=== PATIENT | male | born 1945 | race Caucasian/White ===

== ENCOUNTER 2018-03-30 14:23 | Emergency (ER) | payer OTHER, SELFPAY ==
[2018-03-30 14:28] VITALS: BP 138/79; PULSE 92; RESP 20; TEMP 37; O2SAT 100; BMI 21.2
--- NOTE | 2018-03-30 16:10 | ED.ABDPAIN ---
HPI - Abdominal Pain General Chief Complaint: Urogenital-Male Stated Complaint: states hernia Time Seen by Provider: 03/30/18 16:01 History of Present Illness HPI narrative: This is a 72-year-old gentleman who comes to the emergency department with complaint of groin pain and swelling. Patient states that he has had what he believes is a hernia for many years on both sides of the lower groin. Patient states that the right side would go in and out, it sounds like he could self reduced. Um over the last several days he has not been able to it has become hard and painful. Patient has not had any nausea or vomiting but he has had watery stools with no solid stools for the last 3 days. He denies any urinary issues. He has not had any fevers. He has been having pain in his lower abdomen on the right side as well since the pain in the area of the right groin occurred. He denies any testicular pain. MD complaint: other ( Concern for hernia) Onset (ago): day(s) Pain Consistency: constant Radiation: RLQ Migration to: RLQ and other ( from groin) Relieving factors: nothing Exacerbating factors: nothing Related Data Home Medications Medication Instructions Recorded Confirmed No Known Home Medications 03/30/18 03/30/18 Allergies Allergy/AdvReac Type Severity Reaction Status Date / Time INGREDIENT: NKDA - NO KNOWN Allergy Unknown Uncoded 03/30/18 14:32 DRUG ALLERGIES Review of Systems Review of Systems All systems reviewed & are unremarkable except as noted in HPI and below Constitutional Denies chills, Denies fever(s), Denies lethargy and Denies weakness Cardiovascular Denies chest pain, Denies irregular heart rhythm, Denies lightheadedness, Denies palpitations, Denies dyspnea, Denies dyspnea on exertion and Denies orthopnea Respiratory Denies cough, Denies dyspnea, Denies dyspnea on exertion and Denies wheezing Gastrointestinal Gastrointestinal: Reports abdominal pain ( right groin with some lump.), Denies melena, Denies hematochezia, Reports change in bowel habits ( loose watery stools), Reports constipation, Reports diarrhea, Reports loose stools and Denies nausea Genitourinary Reports as per HPI, Denies hematuria, Denies flank pain, Denies urinary incontinence and Denies urinary urgency Neurologic Denies weakness Endocrine Denies palpitations Allergic/Immunologic Denies wheezing [facility] Social History Smoking Status: Current every day smoker Exam Initial Vital Signs Initial Vital Signs: Vital Signs Temperature 98.6 F 03/30/18 14:28 Pulse Rate 92 H 03/30/18 14:28 Respiratory Rate 20 03/30/18 14:28 Blood Pressure 138/79 03/30/18 14:28 Pulse Oximetry 100 03/30/18 14:28 Const General: cooperative and well developed Nutritional Appearance: well nourished Orientation: alert, awake, oriented x3 and not confused Resp Effort & Inspection: normal respiratory effort, able to speak in complete sentences, no respiratory distress and no use of accessory muscles Auscultation: clear to auscultation bilaterally, no rales, no rhonchi and no wheezes Cardio Rate: regular rate Rhythm: regular rhythm Heart Sounds: no click, no gallops, no murmurs and no rubs Pulses: normal peripheral pulses GI Inspection: normal to inspection and no visible herniation Palpation: soft, no hepatosplenomegaly, No firm, guarding, No hepatomegaly, No hernia and tender Auscultation: normal bowel sounds General: No CVA tenderness Course Orders Ordered: ED Orders 03/30/18 15:55 Complete Blood Count AUTO DIFF Stat Comprehensive Metabolic Panel Stat Lipase Stat Partial Thromboplastin Time Stat Prothrombin Time INR Stat 03/30/18 16:10 CT abdomen pelvis w con Stat Reevaluation(s) Reevaluation #1: Patient pain continues to be resolved. Vital Signs - 8 hr 03/30/18 14:28 03/30/18 16:17 03/30/18 18:10 Temperature 98.6 F Pulse Rate 92 H 98 H 95 H Respiratory Rate 20 14 18 Blood Pressure 138/79 135/72 Blood Pressure [Left Arm] 128/67 Pulse Oximetry 100 95 97 MDM - Abdominal Pain Medical Records Patient's symptoms resolved and although CT did not show any clear signs of inguinal hernia I suspect that some had reduced be was given referral to general surgery. He also had a mass on his CT of the bladder and we discussed patient needs urgent follow-up with Urology for further evaluation. Him and his will both call Saturday morning for an appointment. We did discuss that if there are any issues where they ran into very years to care to return to the ER for assistance. Lab Data Result diagrams: 03/30/18 15:55 03/30/18 15:55 Lab Results 03/30/18 03/30/18 03/30/18 Range/Units 15:55 15:55 15:55 WBC 6.1 (4.5-11.0) X10^3/uL RBC 3.79 L (4.0-5.2) X10^6/uL Hgb 13.7 (12.0-16.0) g/dL Hct 39.9 (36-46) % MCV 105.3 H (80-100) fL MCH 36.1 H (26-34) PG MCHC 34.3 (30-36) % RDW 13.5 (11.6-14.8) % Plt Count 246 (150-400) X10^3/uL Neut % (Auto) 62.6 (50-75) % Lymph % (Auto) 14.0 L (25-40) % [place] % (Auto) 22.2 H (3-14) % Eos % (Auto) 0.9 L (2-4) % Baso % (Auto) 0.3 (0-2) % Neut # (Auto) 3800 (5295-0607) /uL RBC Morphology Not Reportable Macrocytosis 1+ H PT 11.0 (10.1-12.7) SECONDS INR 1.0 (0.9-1.3) APTT 24 L (26.4-36.2) SECONDS Sodium 131 L (137-145) mmol/L Potassium 3.9 (3.4-5.1) mmol/L Chloride 95 L (98-107) mmol/L Carbon Dioxide 29 (22-32) mmol/L BUN 17 (7-17) mg/dL Creatinine 0.60 (0.52-1.04) mg/dL Estimated GFR > 60.0 (>60) mL/min BUN/Creatinine Ratio 28.3 H (6-22) Glucose 105 (80-110) mg/dL Calcium 9.1 (8.4-10.2) mg/dL Total Bilirubin 0.5 (0.2-1.3) mg/dL AST 41 H (14-36) IU/L ALT 41 (9-52) IU/L Alkaline Phosphatase 48 (38-126) U/L Total Protein 6.9 (6.3-8.2) g/dL Albumin 3.9 (3.5-5.0) g/dL Globulin 3.0 (1.7-4.1) g/dL Albumin/Globulin Ratio 1.3 (1.0-2.8) Lipase 109 (23-300) U/L Imaging Data CT scan - abdomen: Radiologist's impression: [address] [address] [address] Scan Report Signed Patient: Jann Noriega LMR#: [id number] : 3Acct:[id number] Age/Sex: 72 / FDate of Service: 03/30/18 Loc: ED Accession Number: [id number] Procedure: CT abdomen pelvis w con Ordering Provider: Tanvi Caicedo D.O. PROCEDURE: CT ABDOMEN PELVIS W CON INDICATIONS: b/l groin swelling, right groin swelling, painful lump TECHNIQUE: After the administration of intravenous contrast, 5 mm thick sections acquired from the diaphragm to the symphysis. 5 mm coronal and sagittal reformats were acquired. For radiation dose reduction, the following was used: automated exposure control, adjustment of mA and/or kV according to patient size. COMPARISON: None. FINDINGS: Image quality: Limited by patient motion artifact. ABDOMEN: Lung bases: Lung bases are clear. Heart size is normal. Atherosclerotic calcifications noted in the visualized coronary vasculature. Solid organs: Liver is normal in size and enhancement. Diffuse fatty infiltration of the liver. Gallbladder is contracted, but grossly normal. Biliary system is non dilated. Pancreas enhances normally. Spleen is normal in size and enhancement. No adrenal nodules. Kidneys demonstrate normal size and enhancement, without hydronephrosis. Peritoneum and bowel: Mildly distended, fluid-filled loop of small bowel noted in the lower pelvis adjacent to the rectum and sigmoid colon. There is circumferential wall thickening involving the distended fluid-filled loop of small bowel in the pelvis. Small amount of free fluid noted in the lower pelvis. No free air. The appendix is normal. Nodes and vessels: No retroperitoneal or mesenteric adenopathy by size criteria. Aorta and inferior vena cava are normal in size. Scattered atherosclerotic calcifications are noted in the abdominal and pelvic vasculature. Miscellaneous: No ventral hernias. PELVIS: Genitourinary: There is a 3.6 x 4.2 x 3.1 cm soft tissue density, heterogeneously enhancing mass in the urinary bladder. Prostate is enlarged. Miscellaneous: No inguinal hernias or adenopathy. Bones: No suspicious bony lesions. Chronic appearing T12 compression deformity. No acute vertebral body compression fractures. Spine degenerative disease and facet arthropathy noted. IMPRESSION: 1. Mild distention and circumferential wall thickening involving a distal loop of small bowel in the lower pelvis compatible with nonspecific enteritis. 2. 3.6 x 4.2 x 3.1 cm urinary bladder mass highly suspicious for neoplastic process including urothelial carcinoma. Recommend urology consultation. 3. Small amount of free fluid in the lower pelvis. 4. Mild hepatic steatosis. 5. Atherosclerosis including the visualized coronary vasculature. 6. Image quality limited by patient motion artifact. Dictated by: Rachel Murray MD, PhD on 03/30/2018 at 17:06 Approved by: Rachel Murray MD, PhD on 03/30/2018 at 17:14 Discharge Plan Departure Patient Disposition: Home Clinical Impression: Inguinal hernia recurrent bilateral, Bladder mass Discharge Date/Time: 03/30/18 18:10 Interventions: ED Discharge Assessment Last Done: 03/30/18 18:10 Instructions: Groin Hernia -- Adult Activity Restrictions/Additional Instructions: Call for follow-up appointment on Saturday with general surgery regarding your recurrent hernia. If you notice recurrence lay flat and try to relax the muscles of your abdomen, if the area does not reduce Um in size or becomes soft and nontender, return to the emergency department. Your imaging also shows a urinary bladder mass that is suspicious and needs follow-up with a urologist. Included is the urologist professional services consultant for [facility]. Call first thing Saturday for an appointment. Prescriptions: No Action No Known Home Medications RF: 0 Referrals: Avila Staley MD [Non-Staff] - Trinidad Granado MD [Physician] - ( Call for a follow-up appointment in the next week.)
[2018-03-30 16:17] VITALS: BP 128/67; PULSE 98; RESP 14; O2SAT 95
[2018-03-30 16:19] LABS: Alanine Aminotransferase 41 IU/L (9-52); Albumin 3.9 g/dL (3.5-5.0); Albumin Globulin Ratio 1.3 (1.0-2.8); Alkaline Phosphatase 48 U/L (38-126); Aspartate Aminotransferase 41 IU/L (14-36); BUN Creatinine Ratio 28.3 (6-22); Bilirubin Total 0.5 mg/dL (0.2-1.3); Blood Urea Nitrogen 17 mg/dL (7-17); Calcium 9.1 mg/dL (8.4-10.2); Carbon Dioxide 29 mmol/L (22-32); Chloride 95 mmol/L (98-107); Estimated Glomerular Filt Rate > 60.0 mL/min (>60); Glucose 105 mg/dL (80-110); Lipase 109 U/L (23-300); Potassium 3.9 mmol/L (3.4-5.1); Sodium 131 mmol/L (137-145); Total Protein 6.9 g/dL (6.3-8.2)
--- NOTE | 2018-03-30 16:19 | ED_ITS ---
HPI - Abdominal Pain General Chief Complaint: Urogenital-Male Stated Complaint: states hernia Time Seen by Provider: 03/30/18 16:01 History of Present Illness HPI narrative: This is a 72-year-old gentleman who comes to the emergency department with complaint of groin pain and swelling. Patient states that he has had what he believes is a hernia for many years on both sides of the lower groin. Patient states that the right side would go in and out, it sounds like he could self reduced. Um over the last several days he has not been able to it has become hard and painful. Patient has not had any nausea or vomiting but he has had watery stools with no solid stools for the last 3 days. He denies any urinary issues. He has not had any fevers. He has been having pain in his lower abdomen on the right side as well since the pain in the area of the right groin occurred. He denies any testicular pain. MD complaint: other ( Concern for hernia) Onset (ago): day(s) Pain Consistency: constant Radiation: RLQ Migration to: RLQ and other ( from groin) Relieving factors: nothing Exacerbating factors: nothing Related Data Home Medications Medication Instructions Recorded Confirmed No Known Home Medications 03/30/18 03/30/18 Allergies Allergy/AdvReac Type Severity Reaction Status Date / Time INGREDIENT: NKDA - NO KNOWN Allergy Unknown Uncoded 03/30/18 14:32 DRUG ALLERGIES Review of Systems Review of Systems All systems reviewed & are unremarkable except as noted in HPI and below Constitutional Denies chills, Denies fever(s), Denies lethargy and Denies weakness Cardiovascular Denies chest pain, Denies irregular heart rhythm, Denies lightheadedness, Denies palpitations, Denies dyspnea, Denies dyspnea on exertion and Denies orthopnea Respiratory Denies cough, Denies dyspnea, Denies dyspnea on exertion and Denies wheezing Gastrointestinal Gastrointestinal: Reports abdominal pain ( right groin with some lump.), Denies melena, Denies hematochezia, Reports change in bowel habits ( loose watery stools), Reports constipation, Reports diarrhea, Reports loose stools and Denies nausea Genitourinary Reports as per HPI, Denies hematuria, Denies flank pain, Denies urinary incontinence and Denies urinary urgency Neurologic Denies weakness Endocrine Denies palpitations Allergic/Immunologic Denies wheezing [facility] Social History Smoking Status: Current every day smoker Exam Initial Vital Signs Initial Vital Signs: Vital Signs Temperature 98.6 F 03/30/18 14:28 Pulse Rate 92 H 03/30/18 14:28 Respiratory Rate 20 03/30/18 14:28 Blood Pressure 138/79 03/30/18 14:28 Pulse Oximetry 100 03/30/18 14:28 Const General: cooperative and well developed Nutritional Appearance: well nourished Orientation: alert, awake, oriented x3 and not confused Resp Effort & Inspection: normal respiratory effort, able to speak in complete sentences, no respiratory distress and no use of accessory muscles Auscultation: clear to auscultation bilaterally, no rales, no rhonchi and no wheezes Cardio Rate: regular rate Rhythm: regular rhythm Heart Sounds: no click, no gallops, no murmurs and no rubs Pulses: normal peripheral pulses GI Inspection: normal to inspection and no visible herniation Palpation: soft, no hepatosplenomegaly, No firm, guarding, No hepatomegaly, No hernia and tender Auscultation: normal bowel sounds General: No CVA tenderness Course Orders Ordered: ED Orders 03/30/18 15:55 Complete Blood Count AUTO DIFF Stat Comprehensive Metabolic Panel Stat Lipase Stat Partial Thromboplastin Time Stat Prothrombin Time INR Stat 03/30/18 16:10 CT abdomen pelvis w con Stat Reevaluation(s) Reevaluation #1: Patient pain continues to be resolved. Vital Signs - 8 hr 03/30/18 14:28 03/30/18 16:17 03/30/18 18:10 Temperature 98.6 F Pulse Rate 92 H 98 H 95 H Respiratory Rate 20 14 18 Blood Pressure 138/79 135/72 Blood Pressure [Left Arm] 128/67 Pulse Oximetry 100 95 97 MDM - Abdominal Pain Medical Records Patient's symptoms resolved and although CT did not show any clear signs of inguinal hernia I suspect that some had reduced be was given referral to general surgery. He also had a mass on his CT of the bladder and we discussed patient needs urgent follow-up with Urology for further evaluation. Him and his will both call Saturday morning for an appointment. We did discuss that if there are any issues where they ran into very years to care to return to the ER for assistance. Lab Data Result diagrams: 03/30/18 15:55 03/30/18 15:55 Lab Results 03/30/18 03/30/18 03/30/18 Range/Units 15:55 15:55 15:55 WBC 6.1 (4.5-11.0) X10^3/uL RBC 3.79 L (4.0-5.2) X10^6/uL Hgb 13.7 (12.0-16.0) g/dL Hct 39.9 (36-46) % MCV 105.3 H (80-100) fL MCH 36.1 H (26-34) PG MCHC 34.3 (30-36) % RDW 13.5 (11.6-14.8) % Plt Count 246 (150-400) X10^3/uL Neut % (Auto) 62.6 (50-75) % Lymph % (Auto) 14.0 L (25-40) % [place] % (Auto) 22.2 H (3-14) % Eos % (Auto) 0.9 L (2-4) % Baso % (Auto) 0.3 (0-2) % Neut # (Auto) 3800 (1751-9942) /uL RBC Morphology Not Reportable Macrocytosis 1+ H PT 11.0 (10.1-12.7) SECONDS INR 1.0 (0.9-1.3) APTT 24 L (26.4-36.2) SECONDS Sodium 131 L (137-145) mmol/L Potassium 3.9 (3.4-5.1) mmol/L Chloride 95 L (98-107) mmol/L Carbon Dioxide 29 (22-32) mmol/L BUN 17 (7-17) mg/dL Creatinine 0.60 (0.52-1.04) mg/dL Estimated GFR > 60.0 (>60) mL/min BUN/Creatinine Ratio 28.3 H (6-22) Glucose 105 (80-110) mg/dL Calcium 9.1 (8.4-10.2) mg/dL Total Bilirubin 0.5 (0.2-1.3) mg/dL AST 41 H (14-36) IU/L ALT 41 (9-52) IU/L Alkaline Phosphatase 48 (38-126) U/L Total Protein 6.9 (6.3-8.2) g/dL Albumin 3.9 (3.5-5.0) g/dL Globulin 3.0 (1.7-4.1) g/dL Albumin/Globulin Ratio 1.3 (1.0-2.8) Lipase 109 (23-300) U/L Imaging Data CT scan - abdomen: Radiologist's impression: [address] [address] [address] Scan Report Signed Patient: Jann Noriega LMR#: [id number] : 3Acct:[id number] Age/Sex: 72 / FDate of Service: 03/30/18 Loc: ED Accession Number: [id number] Procedure: CT abdomen pelvis w con Ordering Provider: Tanvi Caicedo D.O. PROCEDURE: CT ABDOMEN PELVIS W CON INDICATIONS: b/l groin swelling, right groin swelling, painful lump TECHNIQUE: After the administration of intravenous contrast, 5 mm thick sections acquired from the diaphragm to the symphysis. 5 mm coronal and sagittal reformats were acquired. For radiation dose reduction, the following was used: automated exposure control, adjustment of mA and/or kV according to patient size. COMPARISON: None. FINDINGS: Image quality: Limited by patient motion artifact. ABDOMEN: Lung bases: Lung bases are clear. Heart size is normal. Atherosclerotic calcifications noted in the visualized coronary vasculature. Solid organs: Liver is normal in size and enhancement. Diffuse fatty infiltration of the liver. Gallbladder is contracted, but grossly normal. Biliary system is non dilated. Pancreas enhances normally. Spleen is normal in size and enhancement. No adrenal nodules. Kidneys demonstrate normal size and enhancement, without hydronephrosis. Peritoneum and bowel: Mildly distended, fluid-filled loop of small bowel noted in the lower pelvis adjacent to the rectum and sigmoid colon. There is circumferential wall thickening involving the distended fluid-filled loop of small bowel in the pelvis. Small amount of free fluid noted in the lower pelvis. No free air. The appendix is normal. Nodes and vessels: No retroperitoneal or mesenteric adenopathy by size criteria. Aorta and inferior vena cava are normal in size. Scattered atherosclerotic calcifications are noted in the abdominal and pelvic vasculature. Miscellaneous: No ventral hernias. PELVIS: Genitourinary: There is a 3.6 x 4.2 x 3.1 cm soft tissue density, heterogeneously enhancing mass in the urinary bladder. Prostate is enlarged. Miscellaneous: No inguinal hernias or adenopathy. Bones: No suspicious bony lesions. Chronic appearing T12 compression deformity. No acute vertebral body compression fractures. Spine degenerative disease and facet arthropathy noted. IMPRESSION: 1. Mild distention and circumferential wall thickening involving a distal loop of small bowel in the lower pelvis compatible with nonspecific enteritis. 2. 3.6 x 4.2 x 3.1 cm urinary bladder mass highly suspicious for neoplastic process including urothelial carcinoma. Recommend urology consultation. 3. Small amount of free fluid in the lower pelvis. 4. Mild hepatic steatosis. 5. Atherosclerosis including the visualized coronary vasculature. 6. Image quality limited by patient motion artifact. Dictated by: Rachel Murray MD, PhD on 03/30/2018 at 17:06 Approved by: Rachel Murray MD, PhD on 03/30/2018 at 17:14 Discharge Plan Departure Patient Disposition: Home Clinical Impression: Inguinal hernia recurrent bilateral, Bladder mass Discharge Date/Time: 03/30/18 18:10 Interventions: ED Discharge Assessment Last Done: 03/30/18 18:10 Instructions: Groin Hernia -- Adult Activity Restrictions/Additional Instructions: Call for follow-up appointment on Saturday with general surgery regarding your recurrent hernia. If you notice recurrence lay flat and try to relax the muscles of your abdomen, if the area does not reduce Um in size or becomes soft and nontender, return to the emergency department. Your imaging also shows a urinary bladder mass that is suspicious and needs follow-up with a urologist. Included is the urologist marketing communications manager for [facility]. Call first thing Saturday for an appointment. Prescriptions: No Action No Known Home Medications RF: 0 Referrals: Avila Staley MD [Non-Staff] - Trinidad Granado MD [Physician] - ( Call for a follow-up appointment in the next week.)
[2018-03-30 16:26] LABS: HEMOLYSIS 51 (0-50)
[2018-03-30 16:36] LABS: PTT Partial Thromboplastin Tim 24 SECONDS (26.4-36.2)
[2018-03-30 16:58] LABS: Basophils Percent Auto 0.3 % (0-2); Eosinophils Percent Auto 0.9 % (2-4); Hematocrit 39.9 % (36-46); Hemoglobin 13.7 g/dL (12.0-16.0); Mean Corpuscular HGB Conc 34.3 % (30-36); Mean Corpuscular Hemoglobin 36.1 PG (26-34); Mean Corpuscular Volume 105.3 fL (80-100); Monocytes Percent Auto 22.2 % (3-14); Neutrophils Absolute Auto 3800 /uL (3000-5900); Neutrophils Percent Auto 62.6 % (50-75); Platelet Count 246 X10^3/uL (150-400); Red Blood Cell Count 3.79 X10^6/uL (4.0-5.2); Red Cell Distribution Width 13.5 % (11.6-14.8); White Blood Cell Count 6.1 X10^3/uL (4.5-11.0)
[2018-03-30 17:04] LABS: Add Manual Diff / Slide Review SLIDE REVIEW
[2018-03-30 17:24] LABS: Macrocytosis 1+
[2018-03-30 18:10] VITALS: BP 135/72; PULSE 95; RESP 18; O2SAT 97
== END 2018-03-30 18:10 | disposition home or self-care (01) ==
PROVIDERS: Emergency Provider Emergency Medicine
DX: K40.21 Bilateral inguinal hernia, without obstruction or gangrene, recurrent (principal); N32.89 Other specified disorders of bladder
CPT/HCPCS: 36591; 74177; 80053; 83690; 85025; 85610; 85730; 99282; 99285; Q9967

== ENCOUNTER 2018-04-01 21:02 | Emergency (ER) | payer OTHER, SELFPAY ==
[2018-04-01 21:12] VITALS: BP 144/77; PULSE 85; RESP 18; TEMP 36.9; O2SAT 95; BMI 22.8
--- NOTE | 2018-04-07 16:09 | ED.ABDPAIN ---
HPI - Abdominal Pain General Chief Complaint: Abdominal Pain Stated Complaint: STATES HERNIA PROBLEMS History of Present Illness HPI narrative: Patient left without being seen prior to my examination. Related Data Home Medications Medication Instructions Recorded Confirmed ascorbic acid (vitamin C) 500 mg 1,000 mg PO cap 04/07/18 04/07/18 capsule aspirin 81 mg chewable tablet 81 mg PO DAILY 04/07/18 04/07/18 calcium citrate PO 04/07/18 04/07/18 cholecalciferol (vitamin D3) 1,000 1,000 unit PO DAILY 04/07/18 04/07/18 unit capsule mecobalamin (vitamin B12) 1,000 1,000 mcg SL DAILY 04/07/18 04/07/18 mcg disintegrating tablet,sublingual omega-3 fatty acids PO 04/07/18 04/07/18 Allergies Allergy/AdvReac Type Severity Reaction Status Date / Time INGREDIENT: NKDA - NO KNOWN Allergy Unknown Uncoded 04/07/18 13:30 DRUG ALLERGIES PFSH Medical History Atherosclerosis (Acute) Bilateral inguinal hernia (Acute) Hepatic steatosis (Acute) Surgical History H/O vasectomy (Resolved) Social History marital status: household members: spouse Smoking Status: Current every day smoker alcohol intake: current substance use type: does not use Exam Initial Vital Signs Initial Vital Signs: Vital Signs Temperature 98.4 F 04/01/18 21:12 Pulse Rate 85 04/01/18 21:12 Respiratory Rate 18 04/01/18 21:12 Blood Pressure 144/77 H 04/01/18 21:12 Pulse Oximetry 95 04/01/18 21:12 Discharge Plan Departure Patient Disposition: Left Without Being Seen Discharge Date/Time: 04/01/18 23:14 Interventions: ED Discharge Assessment Last Done: 04/01/18 23:10
== END 2018-04-01 23:14 | disposition left against medical advice (07) ==
PROVIDERS: Emergency Provider Emergency Medicine
DX: R10.9 Unspecified abdominal pain (principal)
CPT/HCPCS: 99281; 99282

== ENCOUNTER 2018-04-10 10:09 | Day surgery (SDC) | payer OTHER, SELFPAY ==
[2018-04-07 13:28] VITALS: BMI 21.4
--- NOTE | 2018-04-10 08:25 | SUR.OPER ---
Supine on padded OR bed, head on pillow, arms secured on padded arm boards at <90 degrees abduction, legs uncrossed, safety belt at thigh, tape over blanket over lower legs.
[2018-04-10 14:23] VITALS: BP 159/76; PULSE 85; RESP 16; TEMP 36.4; O2SAT 99; BMI 21.4
[2018-04-10] MEDS: LACTATED RINGERS 1,000 ML 42 ML IV (15:00)
--- NOTE | 2018-04-10 15:25 | PM.PREOP ---
Pre-operative Note Interval Note Pre-op Check: Yes History & Physical Reviewed by Physician and Yes Exam Performed Changes: No
[2018-04-10] MEDS: CEFAZOLIN 2 GM/100 ML FROZ.PIGGY IV (16:16)
[2018-04-10] MEDS: BUPIVACAINE 0.5% (PF) VIAL 30 ML INJ (16:27)
[2018-04-10 17:30] VITALS: BP 118/69; PULSE 73; RESP 15; TEMP 36.3; O2SAT 97
[2018-04-10 17:35] VITALS: BP 123/73; PULSE 73; RESP 13; TEMP 36.3; O2SAT 96
--- NOTE | 2018-04-10 17:37 | PM.OP.1 ---
Operative Date/Time/Diagnoses Date of procedure: 04/10/18 Time of procedure: 17:37 Pre-op diagnosis: Bilateral inguinal hernias reducible Post-op diagnosis: same (Same direct) Procedure & Clinicians Procedure: Bilateral inguinal hernia repair with plug and patch technique Same procedure as scheduled: Yes Indications: Symptomatic bilateral inguinal hernias Surgeon: Fredis Curiel Click Yes if Unassisted: Yes Anesthesia Type: General Operative Notes Findings: The patient was placed supine on the operating room table and underwent general LMA anesthesia. He was prepped and draped in the usual fashion. A transverse incision was made overlying the internal ring and carried down to the level of the external oblique. The external oblique was opened parallel with its fibers through the external ring. The cord structures were elevated. The cremaster was opened proximally and search made for an indirect sac. None was found . The floor was examined and was found to [have very discrete ring coming through the floor just superior and lateral to the pubic tubercle. I opened end it really had no contents at the time of operation O times and suture obliterating the hole and placing a plug under it.]. A patch was placed across the floor and tacked at the pubic tubercle, the posterior lamella of the anterior rectus sheath, the ilioinguinal ligament, and superior lateral to the cord. The opening was modified as necessary to prevent tight constriction of the cord. Sutures of 0 Tycron were used to secure the mesh. The external oblique was closed with a running 3 0 Polysorb. The subcu was closed with interrupted 3 0 Polysorb. The skin was closed with a running 4 0 Polysorb subcuticular stitch. Attention was then turned to the opposite side where a mirror incision was created. An identical operation was performed. Identical findings were present. An identical operation was performed. Closure was in identical fashion. At completion Steri-Strips and Dressings were applied, the patient was awakened, and the patient was taken to the recovery area in good condition. Closure Type: primary Specimen(s): none sent Implants & Drains: Mesh Estimated Blood Loss (mL): 10 Complications: none Condition: stable Disposition: PACU Plan for aftercare: Follow-up in the office
[2018-04-10 17:40] VITALS: BP 123/73; PULSE 73; RESP 14; TEMP 36.6; O2SAT 95
[2018-04-10 17:45] VITALS: BP 126/72; PULSE 71; RESP 14; TEMP 36.6; O2SAT 95
[2018-04-10 18:20] VITALS: BP 155/85; PULSE 74; RESP 20; TEMP 36.6; O2SAT 95
== END 2018-04-10 16:00 | disposition home or self-care (01) ==
LOC: OR 08-26 10:10
PROVIDERS: PCP Physician Assistant Medical; Visit Provider Specialist
PROC: (CPT 49505; principal; 2018-04-10 14:30)
DX: K40.20 Bilateral inguinal hernia, without obstruction or gangrene, not specified as recurrent (principal); F17.210 Nicotine dependence, cigarettes, uncomplicated
CPT/HCPCS: 49505; C1781; J0690; J1100; J2405; J2704; J3010

== ENCOUNTER → 2018-04-10 13:18 | Day surgery (SDC) | payer OTHER, SELFPAY | PROVIDERS: PCP Physician Assistant Medical; Visit Provider Specialist ==

== ENCOUNTER → 2018-05-30 10:45 | Outpatient (CLI) | payer OTHER, SELFPAY ==
--- NOTE | 2018-05-30 | DI.US.S_ITS ---
PROCEDURE: US RENAL COMPLETE INDICATIONS: BLADDER TUMOR TECHNIQUE: Real-time scanning was performed of the kidneys and bladder, with image documentation. COMPARISON: None. FINDINGS: Kidneys: Kidneys are normal in size. Right kidney measures 10.9 cm long; left kidney measures 11.8 cm long. Right renal cortical thickness is 1.9 cm; left renal cortical thickness is 1.8 cm. Renal cortical echotexture is normal. No hydronephrosis or nephrolithiasis. No suspicious solid mass lesions. Bladder: Pre-void bladder volume is 53 mL. Post-void residual is 10 mL. Pre-void images demonstrate no intraluminal masses or stones. On pre-void images, neither ureteral jets are noted with color Doppler interrogation. (Of note, ureteral jets may not be detectable in up to 25% of cases due to insufficient differences in specific gravity between ureteral and bladder urine). Miscellaneous: No free pelvic fluid. IMPRESSION: No hydronephrosis or nephrolithiasis found. The bladder volume is not abnormally enlarged and the post void residual is small. A discrete bladder mass is not identified but bladder distention would provide a more effective evaluation through the bladder lumen for detecting a small bladder mass by ultrasound. Dictated by: Nain Argueta M.D. on 05/30/2018 at 15:43 Approved by: Nain Argueta M.D. on 05/30/2018 at 15:44
== END ==
PROVIDERS: PCP Physician Assistant Medical; Visit Provider Urology
DX: D49.4 Neoplasm of unspecified behavior of bladder (principal)
CPT/HCPCS: 76770

== ENCOUNTER 2018-08-09 09:42 | Emergency (ER) | payer OTHER, SELFPAY ==
[2018-08-09] VITALS (9 sets, daily range): BP systolic 116–150; BP diastolic 63–78; PULSE 87–104; RESP 13–24; TEMP 37.4; O2SAT 94–98
--- NOTE | 2018-08-09 10:13 | PC.NURSE ---
coughing for one week, shortness of breath,generalized weakness, poor appetite. hx of bladder cancer remove last april, hernia repair last march, denies traveling outside [place] denies vomiting or diarrhea.
--- NOTE | 2018-08-09 10:27 | ED.URI ---
HPI - URI/Sore Throat General Chief Complaint: Upper Respiratory Symptoms Stated Complaint: CONGESTION Time Seen by Provider: 08/09/18 09:58 Source: patient Mode of arrival: ambulatory Limitations: no limitations History of Present Illness HPI Narrative: The patient 73-year-old male who presents with cough and shortness of breath. It has been ongoing for about a week but progressively has gotten worse over last few days. He has a productive cough of feel short of breath both at rest and with exertion. He denies any chest pain or heart palpitations. He has had low-grade fever. He quit smoking 11 weeks ago he has smoked for most of his life at least a pack a day. No known history of COPD. MD Complaint: fever and cough Related Data Home Medications Medication Instructions Recorded Confirmed ascorbic acid (vitamin C) 500 mg 1,000 mg PO cap 04/07/18 04/23/18 capsule aspirin 81 mg chewable tablet 81 mg PO DAILY 04/07/18 04/23/18 calcium citrate PO 04/07/18 04/23/18 cholecalciferol (vitamin D3) 1,000 1,000 unit PO DAILY 04/07/18 04/23/18 unit capsule mecobalamin (vitamin B12) 1,000 1,000 mcg SL DAILY 04/07/18 04/23/18 mcg disintegrating tablet,sublingual omega-3 fatty acids PO 04/07/18 04/23/18 Previous Rx's Medication Instructions Recorded albuterol sulfate 1 puff INHALATION Q4-6H PRN #8.5 08/09/18 gram doxycycline hyclate 100 mg PO BID #20 cap 08/09/18 prednisone 50 mg PO DAILY #5 tab 08/09/18 Allergies Allergy/AdvReac Type Severity Reaction Status Date / Time No Known Drug Allergies Allergy Verified 08/09/18 10:32 Review of Systems Review of Systems ROS Unobtainable: All systems reviewed & are unremarkable except as noted in HPI and below Constitutional Reports body ache(s) and Reports fever(s) Cardiovascular Denies chest pain, Denies irregular heart rhythm, Denies lightheadedness, Denies palpitations and Denies orthopnea Respiratory Reports as per HPI Gastrointestinal Gastrointestinal: Denies abdominal pain, Denies change in bowel habits, Denies diarrhea, Denies nausea and Denies vomiting Musculoskeletal Denies back pain, Denies muscle weakness, Denies numbness and Denies tingling Integumentary/Breasts Denies pruritus, Denies erythema, Denies rash and Denies wounds Neurologic Denies numbness and Denies tingling Endocrine Denies palpitations PFSH Medical History Atherosclerosis (Acute) Bilateral inguinal hernia (Acute) Hepatic steatosis (Acute) Surgical History H/O vasectomy (Resolved) Social History marital status: household members: spouse Smoking Status: Current every day smoker alcohol intake: current substance use type: does not use Exam Initial Vital Signs Initial Vital Signs: Vital Signs Temperature 99.3 F 08/09/18 09:47 Pulse Rate 100 H 08/09/18 09:47 Respiratory Rate 20 08/09/18 09:47 Blood Pressure 146/77 H 08/09/18 09:47 Pulse Oximetry 96 08/09/18 09:47 GENERAL: Appears weak alert oriented x3 HEENT: Head atraumatic,EOMI, pupils reactive, CARDIOVASCULAR: Regular rate and rhythm without murmurs, rubs or gallops. RESPIRATORY: Decreased breath sounds bilaterally no respiratory distress slight crackles ABDOMEN: Soft, nontender. Normoactive bowel sounds all 4 quadrants. No guarding or rebound. EXTREMITIES: Normal range of motion, no clubbing or edema. Neurovascularly intact NEUROLOGICAL: Alert and oriented x4.Normal gait and speech. Cranial nerves II through XII grossly intact. SKIN: Warm, dry, no laceration, no petechiae, no rashes or lesions. Scores CURB-65 Confusion: No BUN >19mg/dL (>7mmol/L): No Respiratory rate greater or equal to 30: No SBP <90mmHg or DBP less or equal to 60mmHg: No Age 65 or Older: Yes CURB-65 Total: 1 Score 0-1 Outpatient care, Score 2 Inpt vs. Obs, Score 3 or over Inpt admit with ICU for score of 4-5 Course Orders Ordered: ED Orders 08/09/18 10:20 B Type Natriuretic Peptide Stat Complete Blood Count AUTO DIFF Stat Comprehensive Metabolic Panel Stat Lactate (Lactic Acid) Stat Magnesium Stat Procalcitonin Stat Troponin & CK Cardiac Panel Stat 08/09/18 10:27 EKG-12 Lead Stat 08/09/18 10:29 Consult to Respiratory Therapy Evaluate & Treat 08/09/18 10:31 XR chest 1V Stat 08/09/18 10:45 Blood Culture Stat Discontinued Medications Albuterol/Ipratropium (Duoneb) 3 ml INH NOW ONE Stop: 08/09/18 10:28 Last Admin: 08/09/18 10:35 Dose: 3 ml Sodium Chloride (Normal Saline 0.9%) 1,000 mls @ 150 mls/hr IV CONT CAL Last Admin: 08/09/18 10:45 Dose: 150 mls/hr Vital Signs - 8 hr 08/09/18 09:47 08/09/18 10:00 08/09/18 10:35 Temperature 99.3 F Pulse Rate 100 H 104 H 96 H Respiratory Rate 20 13 16 Blood Pressure 146/77 H Blood Pressure [Left Arm] 150/78 H Pulse Oximetry 96 94 96 08/09/18 11:00 08/09/18 11:30 08/09/18 12:00 Temperature Pulse Rate 96 H 98 H 88 Respiratory Rate 13 13 24 Blood Pressure Blood Pressure [Left Arm] 117/63 126/64 116/74 Pulse Oximetry 96 98 98 08/09/18 12:10 08/09/18 12:30 08/09/18 13:08 Temperature Pulse Rate 98 H 87 93 H Respiratory Rate 18 13 20 Blood Pressure 130/72 Blood Pressure [Left Arm] 130/78 Pulse Oximetry 96 95 97 MDM - URI/Sore Throat Lab Data Attestation: I reviewed the patient's lab results. Result diagrams: 08/09/18 10:20 08/09/18 10:20 Lab Results 08/09/18 08/09/18 08/09/18 Range/Units 10:20 10:20 10:20 WBC 12.8 H (4.5-11.0) X10^3/uL RBC 3.50 L (4.5-5.9) X10^6/uL Hgb 12.1 L (13.5-17.5) g/dL Hct 36.2 L (41-53) % MCV 103.2 H (80-100) fL MCH 34.6 H (26-34) PG MCHC 33.5 (30-36) % RDW 12.9 (11.6-14.8) % Plt Count 279 (150-400) X10^3/uL Neut % (Auto) 71.0 (50-75) % Lymph % (Auto) 9.7 L (25-40) % [place] % (Auto) 17.0 H (3-14) % Eos % (Auto) 1.6 L (2-4) % Baso % (Auto) 0.7 (0-2) % Neut # (Auto) 9100 H (9819-6327) /uL Lymph # (Auto) 1200 (9841-9743) /uL [place] # (Auto) 2200 H (0-900) /uL Eos # (Auto) 200 (0-450) /uL Baso # (Auto) 100 (0-100) /uL Sodium 131 L (137-145) mmol/L Potassium 4.4 (3.4-5.1) mmol/L Chloride 95 L (98-107) mmol/L Carbon Dioxide 25 (22-32) mmol/L BUN 9 (9-20) mg/dL Creatinine 0.50 L (0.66-1.25) mg/dL Estimated GFR > 60.0 (>60) mL/min BUN/Creatinine Ratio 18.0 (6-22) Glucose 107 (80-110) mg/dL Lactate (0.7-2.1) mmol/L Calcium 8.7 (8.4-10.2) mg/dL Magnesium 1.6 (1.6-2.3) mg/dL Total Bilirubin 1.3 (0.2-1.3) mg/dL AST 21 (17-59) IU/L ALT 20 L (21-72) IU/L Alkaline Phosphatase 70 (38-126) U/L Total Creatine Kinase 66 (55-170) U/L CK-MB (CK-2) TNP CK-MB (CK-2) Rel Index TNP Troponin I < 0.012 (0.01-0.034) ng/mL B-Natriuretic Peptide < 100 (<100) Total Protein 7.4 (6.3-8.2) g/dL Albumin 4.1 (3.5-5.0) g/dL Globulin 3.3 (1.7-4.1) g/dL Albumin/Globulin Ratio 1.2 (1.0-2.8) Procalcitonin < 0.05 (<0.5) ng/mL 01/12/19 01/12/19 Range/Units 10:20 10:20 WBC (4.5-11.0) X10^3/uL RBC (4.5-5.9) X10^6/uL Hgb (13.5-17.5) g/dL Hct (41-53) % MCV (80-100) fL MCH (26-34) PG MCHC (30-36) % RDW (11.6-14.8) % Plt Count (150-400) X10^3/uL Neut % (Auto) (50-75) % Lymph % (Auto) (25-40) % [place] % (Auto) (3-14) % Eos % (Auto) (2-4) % Baso % (Auto) (0-2) % Neut # (Auto) (6007-8992) /uL Lymph # (Auto) (1436-8497) /uL [place] # (Auto) (0-900) /uL Eos # (Auto) (0-450) /uL Baso # (Auto) (0-100) /uL Sodium Cancelled (137-145) mmol/L Potassium Cancelled (3.4-5.1) mmol/L Chloride Cancelled (98-107) mmol/L Carbon Dioxide Cancelled (22-32) mmol/L BUN Cancelled (9-20) mg/dL Creatinine Cancelled (0.66-1.25) mg/dL Estimated GFR Cancelled (>60) mL/min BUN/Creatinine Ratio Cancelled (6-22) Glucose Cancelled (80-110) mg/dL Lactate 0.9 (0.7-2.1) mmol/L Calcium Cancelled (8.4-10.2) mg/dL Magnesium (1.6-2.3) mg/dL Total Bilirubin Cancelled (0.2-1.3) mg/dL AST Cancelled (17-59) IU/L ALT Cancelled (21-72) IU/L Alkaline Phosphatase Cancelled (38-126) U/L Total Creatine Kinase (55-170) U/L CK-MB (CK-2) CK-MB (CK-2) Rel Index Troponin I (0.01-0.034) ng/mL B-Natriuretic Peptide (<100) Total Protein Cancelled (6.3-8.2) g/dL Albumin Cancelled (3.5-5.0) g/dL Globulin Cancelled (1.7-4.1) g/dL Albumin/Globulin Ratio Cancelled (1.0-2.8) Procalcitonin (<0.5) ng/mL ECG Data Attestation: I personally reviewed and interpreted this ECG as follows: Prior ECG tracings: not available for review Interpretation: Normal sinus rhythm rate [address] changes no T-wave inversions TN interval 121 QTC 388 MDM Narrative Medical decision making narrative: Patient does not meet septic criteria. He likely a COPD exacerbation and possible atypical pneumonia. At this time does not meet inpatient criteria. He has an ambulation trial oxygen level remains above 95%. He is given an inhaler, antibiotics and steroids. His breathing improved significantly as with bronchodilators. His lungs open up no wheezing mild rales. Discharge Plan Departure Patient Disposition: Home Clinical Impression: COPD exacerbation, Atypical pneumonia Discharge Date/Time: 08/09/18 13:07 Interventions: ED Discharge Assessment Last Done: 08/09/18 13:08 Instructions: Chronic Obstructive Pulmonary Disease Activity Restrictions/Additional Instructions: *You have been diagnosed with COPD exacerbation, atypical pneumonia *What to do: Rest, increase fluids *Continue to take medications as directed Doxycycline 1 tablet twice a day for 1 week Prednisone 50 mg once a day for 5 days Albuterol inhaler 1-2 puffs every 4 hr if needed for chest tightness or shortness of breath *Follow up with your primary care provider in 2-3 days *Return to ER if you should have increasing shortness of breath, fever uncontrolled not tolerating fluids or any new, worsening or concerning symptoms Prescriptions: New doxycycline hyclate 100 mg capsule 100 mg PO BID Qty: 20 RF: 0 prednisone 50 mg tablet 50 mg PO DAILY Qty: 5 RF: 0 albuterol sulfate 90 mcg/actuation HFA aerosol inhaler 1 puff INHALATION Q4-6H PRN (Reason: shortness of breath) Qty: 8.5 RF: 0 No Action mecobalamin (vitamin B12) 1,000 mcg tablet,disintegrating 1,000 mcg SL DAILY RF: 0 ascorbic acid (vitamin C) 500 mg capsule 1,000 mg PO RF: 0 cholecalciferol (vitamin D3) 1,000 unit capsule 1,000 unit PO DAILY RF: 0 calcium citrate PO RF: 0 aspirin 81 mg tablet,chewable 81 mg PO DAILY RF: 0 omega-3 fatty acids PO RF: 0 Referrals: Claudia Hansen PA-C [Primary Care Provider] -
--- NOTE | 2018-08-09 10:31 | DI.RAD.S_ITS ---
PROCEDURE: XR CHEST 1V INDICATIONS: short of breath TECHNIQUE: One view of the chest was acquired. COMPARISON: None. FINDINGS: Surgical changes and devices: None. Lungs and pleura: No pleural effusions or pneumothorax. Lungs are clear. Mediastinum: Mediastinal contours appear normal. Heart size is normal. Bones and chest wall: No suspicious bony lesions. Overlying soft tissues appear unremarkable. IMPRESSION: No acute cardiopulmonary disease process. Dictated by: Rachel Murray MD, PhD on 08/09/2018 at 10:59 Approved by: Rachel Murray MD, PhD on 08/09/2018 at 11:01
[2018-08-09] MEDS: ALBUTEROL/IPRATROPIUM 3 ML AMPUL INH (10:35)
[2018-08-09 10:44] LABS: Add Manual Diff / Slide Review NO; Basophils Absolute Auto 100 /uL (0-100); Basophils Percent Auto 0.7 % (0-2); Eosinophils Absolute Auto 200 /uL (0-450); Eosinophils Percent Auto 1.6 % (2-4); Hematocrit 36.2 % (41-53); Hemoglobin 12.1 g/dL (13.5-17.5); Lymphocytes Absolute Auto 1200 /uL (1100-4500); Lymphocytes Percent Auto 9.7 % (25-40); Mean Corpuscular HGB Conc 33.5 % (30-36); Mean Corpuscular Hemoglobin 34.6 PG (26-34); Mean Corpuscular Volume 103.2 fL (80-100); Monocytes Absolute Auto 2200 /uL (0-900); Neutrophils Absolute Auto 9100 /uL (1500-7000); Platelet Count 279 X10^3/uL (150-400); Red Cell Distribution Width 12.9 % (11.6-14.8); White Blood Cell Count 12.8 X10^3/uL (4.5-11.0)
[2018-08-09] MEDS: SODIUM CHLORIDE 0.9% 1,000 ML 150 ML IV (10:45)
[2018-08-09 10:55] LABS: Lactate (Lactic Acid) 0.9 mmol/L (0.7-2.1)
[2018-08-09 10:56] LABS: Alanine Aminotransferase 20 IU/L (21-72); Albumin 4.1 g/dL (3.5-5.0); Albumin Globulin Ratio 1.2 (1.0-2.8); Alkaline Phosphatase 70 U/L (38-126); Aspartate Aminotransferase 21 IU/L (17-59); Bilirubin Total 1.3 mg/dL (0.2-1.3); Blood Urea Nitrogen 9 mg/dL (9-20); Calcium 8.7 mg/dL (8.4-10.2); Carbon Dioxide 25 mmol/L (22-32); Chloride 95 mmol/L (98-107); Creatine Kinase 66 U/L (55-170); Estimated Glomerular Filt Rate > 60.0 mL/min (>60); Globulin 3.3 g/dL (1.7-4.1); Glucose 107 mg/dL (80-110); HEMOLYSIS < 15 (0-50); Magnesium 1.6 mg/dL (1.6-2.3); Potassium 4.4 mmol/L (3.4-5.1); Sodium 131 mmol/L (137-145); Total Protein 7.4 g/dL (6.3-8.2)
[2018-08-09 11:13] LABS: Procalcitonin < 0.05 ng/mL (<0.5); Troponin I < 0.012 ng/mL (0.01-0.034)
[2018-08-09 11:17] LABS: B Type Natriuretic Peptide < 100 (<100)
== END 2018-08-09 13:07 | disposition home or self-care (01) ==
PROVIDERS: Emergency Provider Emergency Medicine; PCP Physician Assistant Medical
DX: J44.1 Chronic obstructive pulmonary disease with (acute) exacerbation (principal); J18.9 Pneumonia, unspecified organism
CPT/HCPCS: 36415; 36591; 71045; 80053; 82550; 83605; 83735; 83880; 84145; 84484; 85025; 87040; 93005; 94640; 96360; 99283; 99285

== ENCOUNTER → 2018-10-03 14:55 | Outpatient (CLI) | payer OTHER, SELFPAY ==
--- NOTE | 2018-10-10 14:54 | PM.PFT.1 ---
Pulmonary Function Test Referral & Results Date Patient Seen: 10/03/18 Requesting provider: Claudia Hansen Indication: COPD Results: The spirometry demonstrates an FVC of 3.02 L which is 77% of predicted. The FEV1 was measured at 1.14 L which is 40% of predicted. The FEV1/FVC ratio was 38 which is 51% of predicted. Following the administration of bronchodilator there was a 24% improvement in FEV1 and 88% improvement in FEF 25-75%. Lung volumes show an SVC of 3.14 L which is 74% of predicted. The diffusing capacity was measured at 15.90 which is 53% of predicted. No hemoglobin value was provided, so no correction for potential anemia could be made, if appropriate. The maximum voluntary ventilation was reduced Interpretation: This study demonstrates moderately severe obstructive lung disease with evidence of benefit following bronchodilator based on 24% improvement in FEV1 and 88% improvement in FEF 25-75% There is also mild restrictive lung disease present There is more significant disease at the capillary alveolar level based on reduction in diffusing capacity Clinical correlation suggested
== END ==
PROVIDERS: PCP Physician Assistant Medical; Visit Provider Family Medicine
DX: J44.9 Chronic obstructive pulmonary disease, unspecified (principal)
CPT/HCPCS: 94060; 94726; 94729

== ENCOUNTER 2018-12-09 09:10 | Day surgery (SDC) | payer OTHER, SELFPAY ==
--- NOTE | 2018-12-09 | PATH_ITS ---
[facility] Accession Number: [id number] . 01 Material submitted: . colon - COLON POLYP AT 25CM . 01 Clinical history: . COLON POLYP BIOPSIES AT 25CM X3 . 02 Diagnosis: Colon, Polyp at 25 cm, Biopsy: Hyperplastic polyps. MRV/12/11/2018 . 02 Electronically signed: . Alexandria Pedersen MD, Pathologist NPI- [id number] . 01 Gross description: . COLON POLYP AT 25CM: Received in formalin are multiple fragment(s) of vanegas, soft tissue measuring 1.4 x 0.6 x 0.3 cm in aggregate submitted entirely in 1 cassette(s) /CKI /CKI . 02 Pathologist provided ICD-10: K63.5 . 02 CPT . 461185 Performed at: 01 [facility] [address] [id number] MD Catracho Peñaloza MD Phone: [phone] Performed at: 02 [facility] [place] [id number] [address] [place], [place] [id number] MD Alexandria Pedersen MD Phone: [phone]
[2018-12-09 09:33] VITALS: BP 161/83; PULSE 99; RESP 16; TEMP 36.7; O2SAT 96; BMI 22.0
[2018-12-09] MEDS: SODIUM CHLORIDE 0.9% 1,000 ML 200 ML IV (09:42)
--- NOTE | 2018-12-09 09:55 | P.HP_ITS ---
History of Present Illness Date Patient Seen: 12/09/18 Time Patient Seen: 09:52 Chief complaint: [id number] Narrative: The patient is a gentleman here for a screening colonoscopy. Last exam was 8 years ago. He was actually supposed to have it in 5 that there was some confusion as to when it was scheduled per he and his 's history Patient History Medical History (Updated 12/09/18 @ 09:54 by Fredis Curiel MD) COPD (chronic obstructive pulmonary disease) (Chronic) Atherosclerosis (Acute) Hepatic steatosis (Acute) Bilateral inguinal hernia (Resolved) Surgical History H/O vasectomy (Resolved) Social History marital status: household members: spouse Smoking Status: Current every day smoker Tobacco: How many years used: 55 alcohol intake: current substance use type: does not use Family & Social History Social History: household members spouse Tobacco & Substance use: Smoking Status Current every day smoker alcohol intake current alcohol intake frequency 3 or more drinks per day Substance Use Type does not use Meds Home Medications Medication Instructions Recorded Confirmed Type ascorbic acid (vitamin C) 500 mg 1,000 mg PO DAILY cap 04/07/18 12/09/18 His tory capsule aspirin 81 mg chewable tablet 81 mg PO DAILY 04/07/18 12/09/18 History cholecalciferol (vitamin D3) 1,000 1,000 unit PO DAILY 04/07/18 12/09/18 History unit capsule mecobalamin (vitamin B12) 1,000 1,000 mcg SL DAILY 04/07/18 12/09/18 History mcg disintegrating tablet,sublingual omega-3 fatty acids 1,000 mg PO DAILY 04/07/18 12/09/18 History albuterol sulfate 1 puff INHALATION Q4-6H PRN #8.5 08/09/18 12/09/18 Rx gram tiotropium bromide [Spiriva with 1 cap INHALATION DAILY 12/09/18 12/09/18 History HandiHaler] Allergies Allergy/AdvReac Type Severity Reaction Status Date / Time No Known Drug Allergies Allergy Verified 12/09/18 09:28 Review of Systems Review of Systems All systems reviewed & are unremarkable except as noted in HPI and below Respiratory Comments: Has chronic respiratory issues and uses a as needed inhaler. Had to use it this morning. Exam Vital Signs (past 8 hours): - 12/09/18 09:33 Temperature 98.0 F Pulse Rate 99 H Respiratory Rate 16 Blood Pressure 161/83 H Pulse Oximetry 96 Oxygen Delivery Method Room Air Narrative Exam Narrative: Pleasant cooperative patient no apparent distress. Lungs are clear to auscultation. No rales or rhonchi. Heart regular rate and rhythm no murmur gallop. I did note transient ectopy. Abdomen is soft nontender without mass. No obvious hernias. Patient is alert and oriented x3. Assessment & Plan Assessment & Plan narrative: The patient for a screening colonoscopy. I have discussed the procedure with them. Risks of bleeding, perforation which would necessitate major operation, failure to find remove all lesions, the potential tattoo were all discussed. All questions were answered. They wished to proceed.
--- NOTE | 2018-12-09 09:55 | PM.PREOP ---
Pre-operative Note Interval Note History & Physical reviewed/Exam performed by Physician: Yes Changes to H&P: No ASA Class (for procedural sedation): II
[2018-12-09] MEDS: fentaNYL 250 MCG/5 ML INJ IV (10:51)
[2018-12-09] MEDS: MIDAZOLAM 5 MG/5 ML VIAL IV (10:51)
--- NOTE | 2018-12-09 11:01 | PM.OP.ENDO ---
Operative Date/Time/Diagnoses Date of procedure: 12/09/18 Time of procedure: 11:02 Pre-op diagnosis: Screening colonoscopy. Last colonoscopy years ago. Post-op diagnosis: same (Incomplete exam. Three polyps removed from the rectum.) Procedure & Clinicians Study performed: Colonoscopy into the transverse colon. Cold biopsy. Same procedure as scheduled: Yes Indications: Screening Surgeon: Fredis Curiel Procedure Notes SCOAP/Timeout: Performed Procedure in detail: The patient was placed in the left lateral decubitus position and underwent IV sedation directed by the surgeon consisting of fentanyl and Versed. Digital exam was unremarkable except for an enlarged prostate. The scope was inserted and advanced through the rectum into the sigmoid, descending, and transverse. I reached a point where I could not advance. The pressure you have him be came to uncomfortable for the patient despite adequate sedation or the scope began to back out despite forward motion. Repositioning the patient applying pressure did little to help the situation. After spending about 10 minutes trying to go forward I abandoned the procedure at this point. The scope was gradually brought out. Two additional Polyps were found at just distal to the 1st.. The scope ultimately was retroflexed in the rectum. The appearance was normal. The scope was removed and the patient tolerated the procedure well. the prep was excellent. We will send patient for barium enema to evaluate the remainder of the colon. In the future patient should probably have deep sedation with anesthesia involvement. Recommendations for his next colonoscopy depending upon the findings of the barium enema. Scope withdrawal time: Not applicable Sedation minutes: 34 Findings: polyp (Three rectal) and other findings (Enlarged firm prostate) Specimen(s): other (Three polyps) Complications: none Recommendations: Other recommendation (Barium enema to evaluate remainder of colon) Follow up: as needed Disposition: PACU
[2018-12-09 11:05] VITALS: BP 123/71; PULSE 91; RESP 17; TEMP 36.7; O2SAT 96
[2018-12-09 11:11] VITALS: BP 123/71; PULSE 89; RESP 13; O2SAT 96
[2018-12-09 11:16] VITALS: BP 122/83; PULSE 89; RESP 13; TEMP 36.6; O2SAT 96
--- NOTE | 2018-12-09 11:18 | SUR.PHASEI ---
Stable pacu stay.
--- NOTE | 2018-12-09 11:18 | SUR.PHASEI ---
Dr. Curiel came to bedside and spoke with pt.
[2018-12-09 11:45] VITALS: BP 121/77; PULSE 86; RESP 16; TEMP 36.3; O2SAT 93
== END 2018-12-09 11:54 | disposition home or self-care (01) ==
PROVIDERS: PCP Physician Assistant Medical; Visit Provider Specialist
PROC: 0DJD8ZZ Inspection of Lower Intestinal Tract, Via Natural or Artificial Opening Endoscopic (ICD-10-PCS; CPT 45378; principal; 2018-12-09 10:45)
DX: Z12.11 Encounter for screening for malignant neoplasm of colon (principal); N40.0 Benign prostatic hyperplasia without lower urinary tract symptoms; J44.9 Chronic obstructive pulmonary disease, unspecified; F17.210 Nicotine dependence, cigarettes, uncomplicated; K63.5 Polyp of colon
CPT/HCPCS: 45331; 99152; 99153; J2250; J3010

== ENCOUNTER → 2018-12-17 08:28 | Outpatient (CLI) | payer OTHER, SELFPAY | PROVIDERS: PCP Physician Assistant Medical; Visit Provider Internal Medicine Pulmonary Disease | DX: J44.9 Chronic obstructive pulmonary disease, unspecified (principal) | CPT/HCPCS: 87070; 87147; 87205 ==

== ENCOUNTER → 2018-12-31 13:17 | Outpatient (CLI) | payer OTHER, SELFPAY ==
--- NOTE | 2018-12-31 | DI.CT.S_ITS ---
PROCEDURE: CT CHEST HIGH RESOLUTION INDICATIONS: Mucopurulent chronic bronchitis TECHNIQUE: Noncontrast 1.0 and 5.0 mm thick contiguous axial sections from the pulmonary apex to the posterior costophrenic angles, with 7 mm thick coronal and sagittal MIP reformats. 1 mm thick dynamic expiratory images acquired through the upper, mid, and lower lungs. 1.0 mm thick axial sections acquired from the jayden to the posterior costophrenic angles in the prone end-inspiration position. For radiation dose reduction, the following was used: automated exposure control, adjustment of mA and/or kV according to patient size. COMPARISON: None. FINDINGS: Image quality: Mildly degraded by absence of intravenous contrast.. Lungs: Moderately severe centrilobular emphysema, no mass lesions found. Slight prominence of the peribronchial soft tissues consistent with a small degree of chronic bronchitis. Pleura: No pleural effusions or pneumothorax. Mediastinum: Heart size is normal. No pericardial effusion. Thoracic aorta and central pulmonary arteries are normal in size. Esophagus is normal in caliber. Bones and chest wall: No suspicious bony lesions. No vertebral body compression fractures. Abdomen: Visualized upper abdominal solid organs and bowel loops appear normal. IMPRESSION: Presumed prior smoking history, given the presence of centrilobular emphysema. A lung mass is not found, and there is a mild degree of chronic bronchitis identified. No suspicion for pneumonia at this time. Dictated by: Nain Argueta M.D. on 12/31/2018 at 15:10 Approved by: Nain Argueta M.D. on 12/31/2018 at 15:12
== END ==
PROVIDERS: PCP Physician Assistant Medical; Visit Provider Internal Medicine Pulmonary Disease
DX: J41.1 Mucopurulent chronic bronchitis (principal); J43.2 Centrilobular emphysema
CPT/HCPCS: 71250

== ENCOUNTER 2019-01-26 10:00 | Outpatient (RCR) | payer OTHER, SELFPAY ==
[2018-08-27 16:06] VITALS: BP 126/78; RESP 14; O2SAT 97
--- NOTE | 2018-08-27 16:19 | PR.IEVALNOTE ---
Current Diagnoses Chronic obstructive pulmonary disease, unspecified (08/26/18) Past Medical History (Last Updated 04/07/18 @ 13:35 by Renée Granado RN) Atherosclerosis (Acute) Bilateral inguinal hernia (Acute) Hepatic steatosis (Acute) Provider Team Visit Care Team Role Provider Type Claudia Hansen PA-C Primary Care Provider Non-Staff Specialty: Medical Address: [address] [place], [place] [address], [place], [address] Email: Misha Perea MD Attending Provider Physician Specialty: Internal Medicine Address: [address] [place] [address], [address] Email: Pulmonary Rehab Initial Evaluation OR Pulmonary Rehab Inital Assessment Start: 08/25/18 14:41 Freq: Status: Active Protocol: Document 08/27/18 16:06 JWS (Rec: 08/27/18 16:19 JWS [id number]) OR Exercise Assessment Dx: COPD Comment No PFT or spirometry 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 Hearing Ability Normal Visual Impairment No Limitations Visual Difficutly None Visual Assist None Body Alignment Posture Good Posture Relaxed Assistive Devices None Comment no current or history of exercise OR Vital Signs Pulse Oximetry (91-100 %) 97 Nasal Cannula No Respiratory Rate (12-24 breaths/min) 14 Respiratory Effort Abdominal Breathing Respiratory Depth Normal Assessment clear t auscultation no wheeze ronchi crackles Right Arm Blood Pressure Method Manual Cuff/Auscultation Blood Pressure Position Sitting BP Comment: 124/78 Left Arm Blood Pressure (90/60-140/90 mmHg) 126/78 Blood Pressure Method Manual Cuff/Auscultation Blood Pressure Position Sitting OR Six Minute Walk Test Oxygen Delivery Method Room Air Respiratory Rate (breaths/min) 14 Pulse Rate (beats/min) 83 O2 Saturation by Pulse Oximetry (%) 97 Pulse Rate (beats/min) 100 Ambulation Distance (feet) 300 O2 Saturation by Pulse Oximetry (%) 95 Pulse Rate (beats/min) 105 Ambulation Distance (feet) 250 O2 Saturation by Pulse Oximetry (%) 93 Pulse Rate (beats/min) 107 Ambulatory Distance (feet) 300 O2 Saturation by Pulse Oximetry (%) 94 Pulse Rate (beats/min) 109 Ambulation Distance (feet) 300 O2 Saturation by Pulse Oximetry (%) 94 Pulse Rate (beats/min) 98 Ambulation Distance (feet) 300 O2 Saturation by Pulse Oximetry (%) 94 PUlse Rate (beats/min) 110 Ambulation Distance (feet) 310 O2 Saturation by Pulse Oximetry (%) 95 Respiratory Rate (breaths/min) 16 Pulse Rate (beats/min) 80 O2 Saturation by Pulse Oximetry (%) 99 Activity Tolerance Good Distance 1460 Rajendra RPE Scale 11.5 Oriented to RPE Scale Yes Dyspnea 2 Oriented to Dyspnea Scale Yes OR Exercise Goals DASI Number and Comment 8.97 mets Short Term 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 with 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 OR Pulmonary Rehab Orientation Complete Complete Yes OR Nutrition Assessment PFT Date 08/26/18 OR Education Pre-Test Score 79% Tobacco Use Former, Quit >6 Months Tobacco Product Used cigarettes Total Years Used 55 Packs Per Day 1 Environmental/Occupational Exposure smoke fumes Use Yes Type beer and wine Amount 3-4 Frequency daily Education Topics Breathing Retraining Discussed Education Requirements on Yes Intake OR Psychosocial Initial Assess HADS Score 4 HADS Score 3 Marital Status Referral Needed No Referred to Counselling No Physician Comment Ready for Pulmonary Rehabilitation Cooperative Anxious Resistive
--- NOTE | 2018-10-21 10:32 | PR.REVALNOTE ---
Current Diagnoses Chronic obstructive pulmonary disease, unspecified (10/20/18) Past Medical History (Last Updated 04/07/18 @ 13:35 by Renée Granado RN) Atherosclerosis (Acute) Bilateral inguinal hernia (Acute) Hepatic steatosis (Acute) Provider Team Visit Care Team Role Provider Type Claudia Hansen PA-C Primary Care Provider Non-Staff Specialty: Medical Address: [facility] [address], [place], [address] Email: Misha Perea MD Attending Provider Physician Specialty: Internal Medicine Address: [address] [place] [address], [phone] Email: Pulmonary Rehab Re-Evaluation MT Pulmonary Rehab. Re-Assessment Start: 08/25/18 14:41 Freq: Status: Active Protocol: Document 09/25/18 15:36 JWS (Rec: 09/25/18 15:36 JWS [id number]) MT Exercise Re-Assessment New Session Number 1-12 Type Nustep Treadmill Document 10/21/18 10:23 JWS (Rec: 10/21/18 10:32 JWS [id number]) MT Exercise Re-Assessment New Session Number 1-12 Type Nustep Treadmill METs (resistance level) 2.96 NS 5.17 TM % Improvement 21% NS 64% Interval Training Yes: 8.53 TM Shortness of Breath with Exercise Yes Desaturation with Exercise No Free Weight Yes: 4# 12R 2S Band Level Yes: #4 BAND Toward Target Goals INCREASED PARTICIPATION IN DOMESTIC ACTIVITIES IMPROVED FUNCTIONAL CAPACITY WITH IMPROVING ENDURANCE AND STAMINA MT Education Re-Assessment Topics Chronic Lung Disease Description and Interpretation Medical Tests Breathing Retraining Benefits of Exercise Goals Pt will Master PLB and Diaphragmatic Breathing Pt will Master Energy Conserving Techniques Pt will learn exercise safety Pt will continue ED topics until completion MT Psychosocial Re-Assessment Patient in Class Regularly Yes Progress Towards Goal PATIENT ATTENDS 2X WEEK Interventions Pt attending class regularly Goals Participate in social and educational discussion Received emotional support from family/friends
== END 2019-01-26 12:00 ==
LOC: PUL 10:00
PROVIDERS: PCP Physician Assistant Medical; Visit Provider Internal Medicine
DX: J44.9 Chronic obstructive pulmonary disease, unspecified (principal)
CPT/HCPCS: G0424

== ENCOUNTER → 2019-12-16 11:00 | Outpatient (CLI) | payer OTHER, SELFPAY ==
--- NOTE | 2019-12-16 | DI.CT.S_ITS ---
PROCEDURE: CT ABDOMEN PELVIS WO/W CON INDICATIONS: Personal history of malignant neoplasm of bladder TECHNIQUE: Optional 5 mm thick noncontrast images acquired from the diaphragm to the symphysis pubis. After the administration of intravenous contrast, 5 mm thick images acquired from the diaphragm to the symphysis pubis after a 10-minute delay. 2 mm thick coronal and sagittal reformats were then performed of the kidneys and ureters. For radiation dose reduction, the following was used: automated exposure control, adjustment of mA and/or kV according to patient size. COMPARISON: [facility], CT, CT ABDOMEN PELVIS W CON, 03/30/2018, 16:39. FINDINGS: Image quality: Excellent. Lung bases: Lung bases are clear. Heart size is normal. Urinary system: Both kidneys are normal in size, without hydronephrosis or nephrolithiasis on pre-contrast images. No perinephric fat stranding. There is normal bilateral renal enhancement. Renal calyces appear normal in morphology when filled with contrast. Opacified portions of both ureters demonstrate normal caliber. Bladder wall thickness is normal. No calcified bladder stones. Other solid organs: Liver is normal in size and enhancement. Gallbladder appears normal. Biliary system is non dilated. Pancreas enhances normally. Spleen is normal in size and enhancement. No adrenal nodules. Peritoneum and bowel: Bowel loops demonstrate normal wall thickness and caliber. No free fluid or air. Nodes and vessels: No retroperitoneal or mesenteric adenopathy by size criteria. Aorta and inferior vena cava are normal in size. Abdominal wall: No ventral hernias. Pelvis: No pathologic free pelvic fluid. No inguinal hernias or adenopathy. Bones: No suspicious bony lesions. No vertebral body compression fractures. IMPRESSION: No mass lesion found in the bladder, no adenopathy is seen. Normal renal contrast enhancement and excretion through the ureters. No underlying infection or neoplasm is suspected. Dictated by: Nain Argueta M.D. on 12/16/2019 at 14:01 Approved by: Nain Argueta M.D. on 12/16/2019 at 14:14
== END ==
PROVIDERS: PCP Physician Assistant Medical; Referring Provider Urology; Visit Provider Urology
DX: Z08 Encounter for follow-up examination after completed treatment for malignant neoplasm (principal); Z85.51 Personal history of malignant neoplasm of bladder
CPT/HCPCS: 74178; Q9967

== ENCOUNTER → 2020-04-18 10:16 | Outpatient (CLI) | payer OTHER, SELFPAY ==
[2020-04-19 12:40] LABS: COVID19 Sendout Not Detected (Not Detect)
== END ==
PROVIDERS: PCP Physician Assistant Medical; Visit Provider Physician Assistant
DX: Z11.59 Encounter for screening for other viral diseases (principal)
CPT/HCPCS: 87635

== ENCOUNTER → 2021-11-02 12:43 | Outpatient (CLI) | payer OTHER, SELFPAY ==
[2021-11-02 13:56] LABS: Alanine Aminotransferase 26 IU/L (<50); Albumin 4.4 g/dL (3.5-5.0); Albumin Globulin Ratio 1.3 (1.0-2.8); Alkaline Phosphatase 54 U/L (38-126); Aspartate Aminotransferase 42 IU/L (17-59); BUN Creatinine Ratio 15.6 (6-22); Bilirubin Total 0.5 mg/dL (0.2-1.3); Blood Urea Nitrogen 10 mg/dL (9-20); Calcium 8.9 mg/dL (8.4-10.2); Carbon Dioxide 28 mmol/L (22-32); Chloride 98 mmol/L (98-107); Estimated Glomerular Filt Rate > 60.0 mL/min (>60); Globulin 3.5 g/dL (1.7-4.1); Glucose 94 mg/dL (80-110); HEMOLYSIS < 15 (0-50); Potassium 4.1 mmol/L (3.4-5.1); Sodium 136 mmol/L (137-145); Total Protein 7.9 g/dL (6.3-8.2)
--- NOTE | 2021-11-02 14:00 | DI.CT.S_ITS ---
PROCEDURE: CT ABDOMEN PELVIS WO/W CON INDICATIONS: Personal history of malignant neoplasm of bladder TECHNIQUE: Optional 5 mm thick noncontrast images acquired from the diaphragm to the symphysis pubis. After the administration of intravenous contrast, 5 mm thick images acquired from the diaphragm to the symphysis pubis after a 10-minute delay. 2 mm thick coronal and sagittal reformats were then performed of the kidneys and ureters. For radiation dose reduction, the following was used: automated exposure control, adjustment of mA and/or kV according to patient size. COMPARISON: [facility], CT, CT ABDOMEN PELVIS WO/W CON, 12/16/2019, 11:25. FINDINGS: Image quality: Excellent. Lung bases: Lung bases are clear. Heart size is normal. Small hiatal hernia. Urinary system: Both kidneys are normal in size, without hydronephrosis or nephrolithiasis on pre-contrast images. No perinephric fat stranding. There is normal bilateral renal enhancement. Renal calyces appear normal in morphology when filled with contrast. Opacified portions of both ureters demonstrate normal caliber. There is mild anterior bladder wall thickening diffusely that may be related to underdistention or chronic outlet obstruction. No suspicious bladder mass is seen. The prostate is mildly enlarged and impinges upon the bladder base. No calcified bladder stones. Other solid organs: Mild geographic fatty infiltration of the liver. Gallbladder is unremarkable. Biliary system is non dilated. Pancreas enhances normally. Spleen is small. No adrenal nodules. Peritoneum and bowel: Bowel loops demonstrate normal wall thickness and caliber. No free fluid or air. Nodes and vessels: No retroperitoneal or mesenteric adenopathy by size criteria. Aorta and inferior vena cava are normal in size. Moderate aortic atherosclerotic calcifications. Abdominal wall: Small fat containing periumbilical hernia. Pelvis: No pathologic free pelvic fluid. No inguinal hernias or adenopathy. Bones: No suspicious bony lesions. Moderate compression deformity of the T12 vertebra is seen, which is unchanged. Generalized osteopenia. Multilevel degenerative changes in the spine. IMPRESSION: 1. No urothelial mass. Mild generalized anterior bladder wall thickening is most likely related to underdistention or chronic outlet obstruction. 2. Mild prostatomegaly. 3. Mild fatty infiltration of the liver. 4. No suspicious lymphadenopathy in the abdomen or pelvis. Dictated by: Rome Gottlieb M.D. on 11/02/2021 at 16:45 Approved by: Rome Gottlieb M.D. on 11/02/2021 at 16:56
== END ==
PROVIDERS: PCP Physician Assistant Medical; Referring Provider Urology; Visit Provider Urology
DX: Z08 Encounter for follow-up examination after completed treatment for malignant neoplasm (principal); Z85.51 Personal history of malignant neoplasm of bladder; N40.0 Benign prostatic hyperplasia without lower urinary tract symptoms; K76.0 Fatty (change of) liver, not elsewhere classified
CPT/HCPCS: 36415; 74178; 80053

== ENCOUNTER 2022-05-20 18:23 | Emergency (ER) | payer OTHER, SELFPAY ==
--- NOTE | 2022-05-20 18:40 | DI.RAD.S_ITS ---
PROCEDURE: XR RIBS RT MIN 3V W CXR 1V INDICATIONS: R posterior rib pain after fall TECHNIQUE: 3 views of the right ribs were acquired, along with a single view chest. COMPARISON: None. FINDINGS: Surgical changes and devices: None. Bones and chest wall: Probable acute nondisplaced fractures of the right 4th, 5th, 6th, and 7th ribs. No suspicious bony lesions. Overlying soft tissues appear unremarkable. Lungs and pleura: No pleural effusions or pneumothorax. Lungs appear clear. Mediastinum: Mediastinal contours appear normal. Heart size is normal. IMPRESSION: Multiple probably acute nondisplaced fractures of the right 4th, 5th, 6th, and 7th ribs. No evidence of acute underlying pulmonary process. Dictated by: Kel Mcneal M.D. on 05/20/2022 at 19:10 Approved by: Kel Mcneal M.D. on 05/20/2022 at 19:12
--- NOTE | 2022-05-20 18:40 | ED.GENADULT ---
HPI - General Adult General Chief complaint: Fall Stated complaint: Fell yesterday, Back pain Time Seen by Provider: 05/20/22 18:39 Source: patient Mode of arrival: Ambulatory Limitations: no limitations History of Present Illness HPI narrative: 76-year-old male who yesterday tripped after he got up out of bed and tripped over some pillows around floor. He landed on his right side. Since that time he has had discomfort on the side of ribs. Has had difficulty breathing. Does have a history of COPD. Was unable to do his nebulizer earlier today because he could not take a deep breath secondary to the pain. He reports no other injuries from the event. Has not tried anything for the symptoms prior to arrival. Related Data Home Medications Medication Instructions Recorded Confirmed ascorbic acid (vitamin C) 500 mg 1,000 mg PO DAILY 04/07/18 12/09/18 capsule aspirin 81 mg chewable tablet 81 mg PO DAILY 04/07/18 12/09/18 cholecalciferol (vitamin D3) 25 1,000 unit PO DAILY 04/07/18 12/09/18 mcg (1,000 unit) capsule mecobalamin (vitamin B12) 1,000 1,000 mcg sublingual DAILY 04/07/18 12/09/18 mcg disintegrating tablet,sublingual omega-3 fatty acids [Fish Oil 1,000 mg PO DAILY 04/07/18 12/09/18 Concentrate] tiotropium bromide 18 mcg capsule 1 cap inhalation DAILY 12/09/18 12/09/18 with inhalation device (Spiriva with HandiHaler) Previous Rx's Medication Instructions Recorded albuterol sulfate 90 mcg/actuation 1 puff inhalation Q4-6H PRN 08/09/18 aerosol inhaler shortness of breath #8.5 grams hydrocodone 5 mg-acetaminophen 325 1 tab PO Q4-6H PRN pain #20 tabs 05/20/22 mg tablet Allergies Allergy/AdvReac Type Severity Reaction Status Date / Time No Known Drug Allergies Allergy Verified 05/20/22 18:44 Review of Systems Constitutional Constitutional: Denies fever(s) ENT Ears, Nose, Mouth, and Throat: Denies neck pain Cardiovascular Cardiovascular: Denies chest pain and Reports dyspnea Respiratory Respiratory: Reports pain on inspiration and Reports dyspnea Gastrointestinal Gastrointestinal: Denies abdominal pain Musculoskeletal Musculoskeletal: Denies back pain and Denies neck pain Integumentary/Breasts Skin/Breast: Denies unusual bruising Neurologic Neurologic: Reports system reviewed and no additional complaints, except as documented Hematologic/Lymphatic On Anticoagulants: No Patient History Medical History Atherosclerosis Bilateral inguinal hernia COPD (chronic obstructive pulmonary disease) Hepatic steatosis Surgical History H/O vasectomy Social History marital status: household members: spouse Smoking Status: Current every day smoker Tobacco: How many years used: 55 alcohol intake: current substance use type: does not use Smoking Status: Current every day smoker alcohol intake frequency: 3 or more drinks per day Substance Use Type: does not use Exam Initial Vital Signs Initial Vital Signs: Vital Signs Pulse Rate 95 H 05/20/22 18:44 Respiratory Rate 30 H 05/20/22 18:44 Blood Pressure 201/98 H 05/20/22 18:44 Pulse Oximetry 95 05/20/22 18:44 Oxygen Delivery Method 05/20/22 18:44 Const General: cooperative and No ill appearing HENMT Head: normal to inspection and normocephalic Chest Chest: No crepitus and No tenderness Resp Effort & Inspection: not labored and not tachypneic Cardio Rate: regular rate Rhythm: regular rhythm GI Palpation: soft and No tender Back/Spine/Pelvis Cervical Spine: No cervical spinal tenderness Thoracic/Lumbar Spine: paraspinal tenderness (Right side paraspinal/posterior axillary), No thoracic spinal tenderness and No lumbar spinal tenderness Skin General: No ecchymosis and No erythema Neuro General: patient alert, patient awake and moves all extremities Extrem General: capillary refill normal Psych Appearance: grossly normal and well kempt Course Orders Ordered: ED Orders 05/20/22 18:40 XR ribs RT min 3V w CXR1V Stat Discontinued Medications Hydrocodone Bitart/Acetaminophen (Hydrocodone/Acet 5/325 Tablet) 1 tab PO NOW ONE Stop: 05/20/22 19:13 Last Admin: 05/20/22 19:17 Dose: 1 tab Documented By: TIFFANIE Hydrocodone Bitart/Acetaminophen (Hydrocodone/Acet 5/325 Prepack) 1 bottle MISC SEEINSTR ONE Stop: 05/20/22 19:58 Last Admin: 05/20/22 20:04 Dose: 1 bottle Documented By: TIFFANIE Morphine Sulfate (Morphine 4 Mg/Ml Inj) 4 mg IM NOW ONE Stop: 05/20/22 18:41 Last Admin: 05/20/22 19:03 Dose: Not Given Documented By: TIFFANIE Vital Signs Vital signs: Vital Signs - 8 hr 05/20/22 18:44 05/20/22 18:47 05/20/22 20:06 Temperature 97.9 F Pulse Rate 95 H 83 Respiratory Rate 30 H 20 Blood Pressure 201/98 H 180/87 H Pulse Oximetry 95 92 Oxygen Delivery Method Room Air Room Air Medical Decision Making Lab Data Labs: Point of Care Testing Glucose POC 98 Point of care testing: Point of Care Testing Glucose POC 98 Imaging Data rib x-ray: Radiologist's Impression: [address] [address] XRay Report Signed Patient: Jann Noriega MR#: [id number] : 1945 Acct:[id number] Age/Sex: 76 / M Date of Service: 05/20/22 Loc: ED Accession Number: [id number] ?? Procedure: XR ribs RT min 3V w CXR1V Ordering Provider: Tho Loza D.O. PROCEDURE:? XR RIBS RT MIN 3V W CXR 1V ? INDICATIONS:? R posterior rib pain after fall ? TECHNIQUE:? 3 views of the right ribs were acquired, along with a single view chest.? ? COMPARISON:? None. ? FINDINGS:? ? Surgical changes and devices:? None.? ? Bones and chest wall:? Probable acute nondisplaced fractures of the right 4th, 5th, 6th, and 7th ribs.? No suspicious bony lesions.? Overlying soft tissues appear unremarkable.? ? Lungs and pleura:? No pleural effusions or pneumothorax.? Lungs appear clear.? ? Mediastinum:? Mediastinal contours appear normal.? Heart size is normal.? ? IMPRESSION:? Multiple probably acute nondisplaced fractures of the right 4th, 5th, 6th, and 7th ribs.? No evidence of acute underlying pulmonary process. ? ? Dictated by: Kel Mcneal M.D. on 05/20/2022 at 19:10 ? ? Approved by: Kel Mcneal M.D. on 05/20/2022 at 19:12? MDM Narrative Medical decision making narrative: X-ray shows multiple rib fractures over the site where the patient is having discomfort. Underlying lung exam is unremarkable. No fevers. No abdominal pain. No other injuries reported by the patient from the fall. This did appear to be a mechanical fall as he tripped over some pillows. We did discuss the importance of coughing. He was given an incentive spirometer. Will discharge home with pain medication. He was given strict return precautions and follow-up instructions. He expressed understanding and agreement. Discharge Plan Departure Patient Disposition: Home Clinical Impression: Multiple rib fractures Instructions: DI for Rib Fracture Activity Restrictions/Additional Instructions: Continue to take all of your medications as directed. A prescription for pain medication was sent to [facility] pharmacy. Please use the incentive spirometer. Return to the emergency department for any fevers, pain that is not controlled with the medication, problems breathing or any other new or worsening symptoms Prescriptions: New hydrocodone-acetaminophen 5-325 mg tablet 1 tab PO Q4-6H PRN (Reason: pain) Qty: 20 0RF No Action mecobalamin (vitamin B12) 1,000 mcg tablet,disintegrating 1,000 mcg SL DAILY ascorbic acid (vitamin C) 500 mg capsule 1,000 mg PO DAILY cholecalciferol (vitamin D3) 1,000 unit capsule 1,000 unit PO DAILY aspirin 81 mg tablet,chewable 81 mg PO DAILY omega-3 fatty acids 1,000 mg PO DAILY albuterol sulfate 90 mcg/actuation HFA aerosol inhaler 1 puff INHALATION Q4-6H PRN (Reason: shortness of breath) Qty: 8.5 0RF Spiriva with HandiHaler 18 mcg Capsule, W/Inhalation Device 1 cap INHALATION DAILY Referrals: Claudia Hansen PA-C [Primary Care Provider] - Visit Report Forms: Patient Portal/API
[2022-05-20 18:44] VITALS: BP 201/98; PULSE 95; RESP 30; O2SAT 95; BMI 26.4
[2022-05-20 18:47] VITALS: TEMP 36.6
[2022-05-20] MEDS: HYDROCODONE/ACET 5/325 TABLET 1 TAB PO (19:17)
[2022-05-20] MEDS: HYDROCODONE/ACET 5/325 PREPACK 1 BOTTLE MISC (20:04)
[2022-05-20 20:06] VITALS: BP 180/87; PULSE 83; RESP 20; O2SAT 92
== END 2022-05-20 20:12 | disposition home or self-care (01) ==
PROVIDERS: Emergency Provider Emergency Medicine; PCP Physician Assistant Medical
DX: S22.41XA Multiple fractures of ribs, right side, initial encounter for closed fracture (principal); W01.0XXA Fall on same level from slipping, tripping and stumbling without subsequent striking against object, initial encounter
CPT/HCPCS: 71101; 82962; 99283

== ENCOUNTER → 2022-05-28 14:03 | Outpatient (CLI) | payer OTHER, SELFPAY ==
--- NOTE | 2022-05-28 | DI.CT.S_ITS ---
PROCEDURE: CT CHEST WO CON INDICATIONS: Pleurodynia TECHNIQUE: Noncontrast 5 mm thick sections acquired from the pulmonary apices to the posterior costophrenic angles. 1 mm lung window, 5 mm thick coronal and sagittal and 7 mm axial MIP reformats were then acquired. For radiation dose reduction, the following was used: automated exposure control, adjustment of mA and/or kV according to patient size. COMPARISON: [facility], CT, CT CHEST HIGH RESOLUTION, 12/31/2018, 13:18. [facility], CR, XR RIBS RT MIN 3V W CXR 1V, 05/20/2022, 18:44. FINDINGS: Image quality: Excellent. Lungs and pleura: There is irregular perivascular patchy right posterior lower lobe consolidative change with air bronchograms. Small right pleural effusion is present. Central and peripheral airways are otherwise patent. There is mild centrilobular emphysema. No pneumothorax. Trace gravitational changes in the left posterior costophrenic sulcus. Mediastinum: Heart size is normal. Moderate to heavy coronary artery calcification. Moderate aortic valvular calcification and mild mitral annular calcification. Small anterior pericardial effusion. No mediastinal adenopathy by size criteria. Thoracic aorta and central pulmonary arteries are normal in size. Esophagus is normal in caliber. Small Bones and chest wall: No supraclavicular or axillary adenopathy. Normal thyroid gland. There are severe degenerative disc changes in the visible lower cervical spine. There is a mild to moderate anterior wedge deformity of T5, T10, T11, and moderate wedging of T12, all of which appear chronic. There are several acute right-sided rib fractures, six, seven, eight, nine, and 10. No left-sided rib fractures. There is only at most mild fracture fragment displacement by less than 1/2 shaft width. No suspicious bone lesions. Abdomen: Visible upper abdominal organs demonstrate of very diminutive spleen, but are otherwise normal. IMPRESSION: 1. Minimally to nondisplaced acute right rib fractures six through 10. 2. Right posterior lower lobe consolidation and small right pleural effusion. This may be an underlying pneumonia, infectious or aspiration, possibly atelectasis from splinting, and less likely pulmonary contusion given morphology. 3. No pneumothorax. 4. Coronary artery and valvular calcification. 5. Chronic appearing thoracic compression fractures. Dictated by: Yue Hughes M.D. on 05/28/2022 at 15:31 Approved by: Yue Hughes M.D. on 05/28/2022 at 15:49
== END ==
PROVIDERS: PCP Physician Assistant Medical; Referring Provider Physician Assistant Medical; Visit Provider Physician Assistant Medical
DX: S22.41XA Multiple fractures of ribs, right side, initial encounter for closed fracture (principal); R07.81 Pleurodynia; I25.10 Atherosclerotic heart disease of native coronary artery without angina pectoris; J90 Pleural effusion, not elsewhere classified; M48.54XA Collapsed vertebra, not elsewhere classified, thoracic region, initial encounter for fracture
CPT/HCPCS: 71250

== ENCOUNTER 2022-05-29 13:53 | Emergency (ER) | payer OTHER, SELFPAY ==
[2022-05-29] VITALS (18 sets, daily range): BP systolic 147–186; BP diastolic 71–87; PULSE 70–95; RESP 12–22; TEMP 36.4; O2SAT 90–100; BMI 26.3
--- NOTE | 2022-05-29 14:14 | DI.RAD.S_ITS ---
PROCEDURE: XR CHEST 2V INDICATIONS: 5 broken ribs, possible pneumonia TECHNIQUE: 2 views of the chest were acquired. COMPARISON: [facility], CT, CT CHEST WO CON, 05/28/2022, 14:05. [facility], CR, XR CHEST 1V, 08/09/2018, 11:06. FINDINGS: Surgical changes and devices: None. Lungs and pleura: Overall mild appearance of increased pulmonary vascularity. Mild right effusion. Mediastinum: Mediastinal contours are normal. Heart size is normal. Bones and chest wall: No suspicious bony abnormalities. Previous rib fractures better visualized on prior exam. Soft tissues appear unremarkable. IMPRESSION: Rib fractures as previously identified. Mild left effusion. No definitive consolidation. Dictated by: Ileana Mckeon M.D. on 05/29/2022 at 14:37 Approved by: Ileana Mckeon M.D. on 05/29/2022 at 14:40
[2022-05-29 14:52] LABS: Add Manual Diff / Slide Review NO; Basophils Absolute Auto 100 /uL (0-100); Basophils Percent Auto 0.5 % (0-2); Eosinophils Absolute Auto 100 /uL (0-450); Eosinophils Percent Auto 0.9 % (2-4); Hematocrit 36.6 % (41-53); Hemoglobin 12.3 g/dL (13.5-17.5); Lymphocytes Absolute Auto 1000 /uL (1100-4500); Lymphocytes Percent Auto 9.3 % (25-40); Mean Corpuscular HGB Conc 33.7 % (30-36); Mean Corpuscular Hemoglobin 35.3 PG (26-34); Mean Corpuscular Volume 104.7 fL (80-100); Monocytes Absolute Auto 2100 /uL (0-900); Monocytes Percent Auto 18.5 % (3-14); Neutrophils Absolute Auto 8000 /uL (1500-7000); Neutrophils Percent Auto 70.8 % (50-75); Platelet Count 324 X10^3/uL (150-400); Red Cell Distribution Width 13.4 % (11.6-14.8); White Blood Cell Count 11.3 X10^3/uL (4.5-11.0)
[2022-05-29 15:06] LABS: Alanine Aminotransferase 23 IU/L (<50); Albumin 3.8 g/dL (3.5-5.0); Albumin Globulin Ratio 1.1 (1.0-2.8); Alkaline Phosphatase 89 U/L (38-126); Aspartate Aminotransferase 37 IU/L (17-59); BUN Creatinine Ratio 27.9 (6-22); Bilirubin Total 0.8 mg/dL (0.2-1.3); Blood Urea Nitrogen 17 mg/dL (9-20); Calcium 8.9 mg/dL (8.4-10.2); Carbon Dioxide 28 mmol/L (22-32); Chloride 96 mmol/L (98-107); Estimated Glomerular Filt Rate > 60 mL/min (>60); Globulin 3.6 g/dL (1.7-4.1); Glucose 121 mg/dL (80-110); HEMOLYSIS < 15 (0-50); Lactate (Lactic Acid) 1.5 mmol/L (0.7-2.1); Sodium 133 mmol/L (137-145); Total Protein 7.4 g/dL (6.3-8.2)
[2022-05-29 15:24] LABS: Procalcitonin 0.19 ng/mL (<0.5)
--- NOTE | 2022-05-29 16:04 | PC.NURSE ---
Pt placed on 2L, O2 drops to 89-90 when resting with eyes closed. Pt has 5 broken ribs, COPD and feeling poorly for several days.
[2022-05-29] MEDS: ALBUTEROL/IPRATROPIUM 3 ML AMPUL INH (17:11)
[2022-05-29] MEDS: HYDROCODONE/ACET 10/325 TABLET 1 TAB PO (17:15)
[2022-05-29] MEDS: predniSONE 20 MG TABLET 60 MG PO (17:15)
[2022-05-29] MEDS: AMOXICILLIN/CLAV 875/125 MG 1 TAB PO (19:07)
[2022-05-29] MEDS: AZITHROMYCIN 250 MG TABLET 500 MG PO (19:08)
--- NOTE | 2022-06-05 19:47 | ED_ITS ---
HPI - SOB/Dyspnea General Chief Complaint: Shortness of Breath/Dyspnea Stated Complaint: broke 5 ribs Sat., COPD ,Fluid in lung Time Seen by Provider: 05/29/22 14:12 Mode of arrival: Family Vehicle History of Present Illness HPI Narrative: 77-year-old male presents to the ED with pain on inspiration, trouble breathing. Patient suffered a fall on 05/19, initially had a x-ray done in the ED. patient's PCP ordered a CT yesterday confirming 5 broken ribs and fluid in the lungs. Patient says that his pain is poorly controlled with the hydrocodone that he has been taking, it is also causing constipation. Patient has a history of COPD. Patient also endorses anorexia. Patient also has a history of bladder cancer in remission currently. Patient denies fever, chills, chest pain, nausea, vomiting, abdominal pain, dysuria, lightheadedness, dizziness, syncope. Related Data Home Medications Medication Instructions Recorded Confirmed ascorbic acid (vitamin C) 500 mg 1,000 mg PO DAILY 04/07/18 12/09/18 capsule aspirin 81 mg chewable tablet 81 mg PO DAILY 04/07/18 12/09/18 cholecalciferol (vitamin D3) 25 1,000 unit PO DAILY 04/07/18 12/09/18 mcg (1,000 unit) capsule mecobalamin (vitamin B12) 1,000 1,000 mcg sublingual DAILY 04/07/18 12/09/18 mcg disintegrating tablet,sublingual omega-3 fatty acids [Fish Oil 1,000 mg PO DAILY 04/07/18 12/09/18 Concentrate] tiotropium bromide 18 mcg capsule 1 cap inhalation DAILY 12/09/18 12/09/18 with inhalation device (Spiriva with HandiHaler) Previous Rx's Medication Instructions Recorded albuterol sulfate 90 mcg/actuation 1 puff inhalation Q4-6H PRN 08/09/18 aerosol inhaler shortness of breath #8.5 grams hydrocodone 5 mg-acetaminophen 325 1 tab PO Q4-6H PRN pain #20 tabs 05/20/22 mg tablet azithromycin 250 mg tablet See Rx Instructions PO .COMPLEX #6 05/29/22 (Zithromax Z-Cordell) tabs prednisone 50 mg tablet 50 mg PO DAILY #10 tabs 05/29/22 Allergies Allergy/AdvReac Type Severity Reaction Status Date / Time morphine AdvReac Hallucinati Verified 05/29/22 16:35 ng Review of Systems Review of Systems ROS Unobtainable: All systems reviewed & are unremarkable except as noted in HPI and below Constitutional Constitutional: Denies chills, Denies fatigue, Denies fever(s), Denies frequent falls, Denies lethargy and Denies weakness Eyes Eyes: Denies change in vision, Denies eye discharge, Denies irritation and Denies loss of vision ENT Ears, Nose, Mouth, and Throat: Denies change in voice, Denies dizziness, Denies neck pain, Denies sore throat and Denies throat swelling Cardiovascular Cardiovascular: Denies chest pain, Denies irregular heart rhythm, Denies lightheadedness, Denies palpitations, Reports dyspnea, Denies dyspnea on ex ertion and Denies orthopnea Respiratory Respiratory: Denies cough, Reports pain on inspiration, Reports dyspnea, Denies dyspnea on exertion and Denies wheezing Gastrointestinal Gastrointestinal: Denies abdominal pain, Denies change in bowel habits, Denies diarrhea, Denies nausea and Denies vomiting Genitourinary Genitourinary: Denies hematuria, Denies flank pain, Denies urinary incontinence and Denies urinary urgency Musculoskeletal Musculoskeletal: Denies back pain, Denies muscle weakness, Denies neck pain, Denies numbness and Denies tingling Comments: Rib pain Integumentary/Breasts Skin/Breast: Denies pruritus, Denies erythema, Denies rash and Denies wounds Neurologic Neurologic: Denies behavioral changes, Denies confusion, Denies dizziness, Den ies frequent falls, Denies loss of vision, Denies numbness, Denies tingling and Denies weakness Psychiatric Psychiatric: Denies anxiety, Denies behavioral changes, Denies confusion, Denies depression, Denies homicidal ideation and Denies suicidal ideation Endocrine Endocrine: Denies fatigue, Denies flushing and Denies palpitations Hematologic/Lymphatic Hematologic/Lymphatic: Denies easy bruising Allergic/Immunologic Allergic/Immunologic: Denies urticaria, Denies throat swelling and Denies wheezing Patient History Medical History Atherosclerosis Bilateral inguinal hernia COPD (chronic obstructive pulmonary disease) Hepatic steatosis Surgical History H/O vasectomy Social History marital status: household members: spouse Smoking Status: Former smoker Tobacco: How many years used: 55 alcohol intake: current substance use type: does not use Smoking Status: Former smoker alcohol intake frequency: 3 or more drinks per day Substance Use Type: does not use Exam Narrative Exam Narrative: Const General:?cooperative, healthy appearing and comfortable HENMT Head:?normal to inspection Ears:?hearing grossly normal bilaterally Nose:?external nose normal Face and sinus:?normal facial exam and sinuses nontender Mouth:?oral mucosae normal Throat:?posterior oropharynx normal Eyes General:?appearance normal, both eyes and all related structures Neck Neck:?normal visual inspection and no lymphadenopathy noted Resp Effort & Inspection:?normal respiratory effort Auscultation:?clear to auscultation bilaterally Cardio Rate:?regular rate Rhythm:?regular rhythm Musculoskeletal Tenderness to palpation in the right lower ribs in the areas of 6-10, consistent with the rib fractures. No bruising noted on exam. No flail chest Neuro General:?patient alert, patient awake and patient oriented x3 Initial Vital Signs Initial Vital Signs: Vital Signs Temperature 97.5 F L 05/29/22 14:00 Pulse Rate 95 H 05/29/22 14:00 Respiratory Rate 18 05/29/22 14:00 Blood Pressure 176/82 H 05/29/22 14:00 Pulse Oximetry 93 05/29/22 14:00 Oxygen Delivery Method 05/29/22 14:00 Course Orders Ordered: Discontinued Medications Hydrocodone Bitart/Acetaminophen (Hydrocodone/Acet 10/325 Tablet) 1 tab PO NOW ONE Stop: 05/29/22 16:39 Last Admin: 05/29/22 17:15 Dose: 1 tab Documented By: JOCELYN Albuterol/Ipratropium (Albuterol/Ipratropium 3 Ml Ampul) 3 ml INH NOW ONE Stop: 05/29/22 16:29 Last Admin: 05/29/22 17:11 Dose: 3 ml Documented By: LAURENT Amoxicillin/Clavulanate Potassium (Amoxicillin/Clav 875/125 Mg) 1 tab PO NOW ONE Stop: 05/29/22 19:02 Last Admin: 05/29/22 19:07 Dose: 1 tab Documented By: JOCELYN Azithromycin (Azithromycin 250 Mg Tablet) 500 mg PO NOW ONE Stop: 05/29/22 19:02 Last Admin: 05/29/22 19:08 Dose: 500 mg Documented By: JOCELYN Prednisone (Prednisone 20 Mg Tablet) 60 mg PO NOW ONE Stop: 05/29/22 16:41 Last Admin: 05/29/22 17:15 Dose: 60 mg Documented By: JOCELYN MDM - SOB/Dyspnea Lab Data Result diagrams: 05/29/22 14:44 05/29/22 14:44 Labs: Lab Results 05/29/22 05/29/22 05/29/22 Range/Units 14:44 14:44 14:44 WBC 11.3 H (4.5-11.0) X10^3/uL RBC 3.50 L (4.5-5.9) X10^6/uL Hgb 12.3 L (13.5-17.5) g/dL Hct 36.6 L (41-53) % MCV 104.7 H (80-100) fL MCH 35.3 H (26-34) PG MCHC 33.7 (30-36) % RDW 13.4 (11.6-14.8) % Plt Count 324 (150-400) X10^3/uL Neut % (Auto) 70.8 (50-75) % Lymph % (Auto) 9.3 L (25-40) % [place] % (Auto) 18.5 H (3-14) % Eos % (Auto) 0.9 L (2-4) % Baso % (Auto) 0.5 (0-2) % Neut # (Auto) 8000 H (6544-4161) /uL Lymph # (Auto) 1000 L (4336-9472) /uL [place] # (Auto) 2100 H (0-900) /uL Eos # (Auto) 100 (0-450) /uL Baso # (Auto) 100 (0-100) /uL Sodium 133 L (137-145) mmol/L Potassium 4.0 (3.4-5.1) mmol/L Chloride 96 L (98-107) mmol/L Carbon Dioxide 28 (22-32) mmol/L BUN 17 (9-20) mg/dL Creatinine 0.61 L (0.66-1.25) mg/dL Estimated GFR > 60 (>60) mL/min BUN/Creatinine Ratio 27.9 H (6-22) Glucose 121 H (80-110) mg/dL Lactate 1.5 (0.7-2.1) mmol/L Calcium 8.9 (8.4-10.2) mg/dL Total Bilirubin 0.8 (0.2-1.3) mg/dL AST 37 (17-59) IU/L ALT 23 (<50) IU/L Alkaline Phosphatase 89 (38-126) U/L Total Protein 7.4 (6.3-8.2) g/dL Albumin 3.8 (3.5-5.0) g/dL Globulin 3.6 (1.7-4.1) g/dL Albumin/Globulin Ratio 1.1 (1.0-2.8) Procalcitonin 0.19 (<0.5) ng/mL Imaging Data Chest x-ray: Radiologist's Impression: PROCEDURE:? XR CHEST 2V ? INDICATIONS:? 5 broken ribs, possible pneumonia ? TECHNIQUE:? 2 views of the chest were acquired.? ? COMPARISON:? [facility], CT, CT CHEST WO CON, 05/28/2022, 14:05.? [facility], CR, XR CHEST 1V, 08/09/2018, 11:06. ? FINDINGS:? ? Surgical changes and devices:? None.? ? Lungs and pleura:? Overall mild appearance of increased pulmonary vascularity.? Mild right effusion. ? Mediastinum:? Mediastinal contours are normal.? Heart size is normal.? ? Bones and chest wall:? No suspicious bony abnormalities.? Previous rib fractures better visualized on prior exam.? Soft tissues appear unremarkable.? ? IMPRESSION:? ? Rib fractures as previously identified. ? Mild left effusion.? No definitive consolidation. ? ? Dictated by: Ileana Mckeon M.D. on 05/29/2022 at 14:37 ? ? Approved by: Ileana Mckeon M.D. on 05/29/2022 at 14:40 ? MDM Narrative Medical decision making narrative: 77-year-old male presents to the ED with pain on inspiration, trouble breathing. And sent for pneumonia versus fractured ribs versus COPD exacerbation versus other. Labs, chest x-ray obtained with no new acute findings. Patient to be started on antibiotics, steroids. Emphasized with patient that he should be taking his pain medications every 4 hours as prescribed for good pain control. Also emphasized spirometry every 1/2 hour. ED return precautions were also dis cussed. Patient verbalized understanding. Discharge Plan Departure Patient Disposition: Home Clinical Impression: Multiple rib fractures Instructions: DI for Rib Fracture Activity Restrictions/Additional Instructions: You were evaluated in the ED today for pain from multiple broken ribs. Your CT chest from yesterday shows that you have 5 broken ribs, and also signs of pneumonia. You are being prescribed 2 antibiotics for the pneumonia. Please complete the full course of antibiotics. You were also being prescribed some steroids. Please take your pain medications every 4 hours when you are awake. Please make sure to do the spirometry exercise every 1/2 hour. Please continue your COPD medications as prescribed. Return to the ED if your symptoms worsen, you are having trouble breathing. Prescriptions: New azithromycin [Zithromax Z-Cordell] 250 mg tablet See Rx Instructions .ROUTE .COMPLEX Qty: 6 0RF Rx Instructions: For 250 mg dose pack: take 500 mg today (day 1), then 250 mg for 4 days (days 2-5) prednisone 50 mg tablet 50 mg PO DAILY Qty: 10 0RF No Action mecobalamin (vitamin B12) 1,000 mcg tablet,disintegrating 1,000 mcg SL DAILY ascorbic acid (vitamin C) 500 mg capsule 1,000 mg PO DAILY cholecalciferol (vitamin D3) 1,000 unit capsule 1,000 unit PO DAILY aspirin 81 mg tablet,chewable 81 mg PO DAILY omega-3 fatty acids 1,000 mg PO DAILY albuterol sulfate 90 mcg/actuation HFA aerosol inhaler 1 puff INHALATION Q4-6H PRN (Reason: shortness of breath) Qty: 8.5 0RF Spiriva with HandiHaler 18 mcg Capsule, W/Inhalation Device 1 cap INHALATION DAILY hydrocodone-acetaminophen 5-325 mg tablet 1 tab PO Q4-6H PRN (Reason: pain) Qty: 20 0RF Referrals: Claudia Hansen PA-C [Primary Care Provider] - Visit Report Forms: Patient Portal/API
== END 2022-05-29 19:10 | disposition home or self-care (01) ==
PROVIDERS: Emergency Provider Student in an Organized Health Care Education/Training Program; PCP Physician Assistant Medical
DX: S22.49XA Multiple fractures of ribs, unspecified side, initial encounter for closed fracture (principal); R63.0 Anorexia; R06.00 Dyspnea, unspecified; W18.30XA Fall on same level, unspecified, initial encounter
CPT/HCPCS: 36415; 71046; 80053; 83605; 84145; 85025; 94640; 99284

== ENCOUNTER 2022-06-19 15:34 | Inpatient (IN) | payer OTHER, SELFPAY ==
[2022-06-19 15:36] VITALS: BP 156/75; PULSE 98; RESP 24; TEMP 37.4; O2SAT 90
--- NOTE | 2022-06-19 15:39 | DI.RAD.S_ITS ---
PROCEDURE: XR CHEST 1V INDICATIONS: suspected sepsis TECHNIQUE: One view of the chest was acquired. COMPARISON: [facility], CR, XR CHEST 2V, 05/29/2022, 14:20. FINDINGS: Surgical changes and devices: None. Lungs and pleura: Increased interstitial prominence within the right base Mediastinum: Mediastinal contours appear normal. Heart size is normal. Bones and chest wall: No suspicious bony lesions. Overlying soft tissues appear unremarkable. IMPRESSION: Increased right basilar interstitial prominence suggestive of developing pneumonia versus atelectasis/dependent change. Dictated by: Ileana Mckeon M.D. on 06/19/2022 at 16:36 Approved by: Ileana Mckeon M.D. on 06/19/2022 at 16:36
[2022-06-19 16:18] LABS: INR 1.2 (0.9-1.3); Prothrombin Time 13.6 SECONDS (10.1-12.7)
[2022-06-19 16:21] LABS: Lactate (Lactic Acid) 1.4 mmol/L (0.7-2.1); PTT Partial Thromboplastin Tim 29 SECONDS (26-36)
[2022-06-19 16:22] LABS: Add Manual Diff / Slide Review NO; Alanine Aminotransferase 22 IU/L (<50); Albumin 3.7 g/dL (3.5-5.0); Alkaline Phosphatase 97 U/L (38-126); Aspartate Aminotransferase 28 IU/L (17-59); BUN Creatinine Ratio 30.6 (6-22); Basophils Absolute Auto 0 /uL (0-100); Basophils Percent Auto 0.4 % (0-2); Bilirubin Total 0.7 mg/dL (0.2-1.3); Blood Urea Nitrogen 19 mg/dL (9-20); Calcium 9.2 mg/dL (8.4-10.2); Carbon Dioxide 27 mmol/L (22-32); Chloride 95 mmol/L (98-107); Eosinophils Absolute Auto 100 /uL (0-450); Eosinophils Percent Auto 1.6 % (2-4); Estimated Glomerular Filt Rate > 60 mL/min (>60); Globulin 3.7 g/dL (1.7-4.1); Glucose 106 mg/dL (80-110); HEMOLYSIS < 15 (0-50); Hematocrit 39.9 % (41-53); Hemoglobin 13.2 g/dL (13.5-17.5); Lipase 142 U/L (23-300); Lymphocytes Absolute Auto 1400 /uL (1100-4500); Lymphocytes Percent Auto 14.5 % (25-40); Mean Corpuscular HGB Conc 33.1 % (30-36); Mean Corpuscular Hemoglobin 34.2 PG (26-34); Mean Corpuscular Volume 103.2 fL (80-100); Monocytes Absolute Auto 1000 /uL (0-900); Monocytes Percent Auto 10.5 % (3-14); Neutrophils Absolute Auto 6800 /uL (1500-7000); Platelet Count 261 X10^3/uL (150-400); Potassium 4.4 mmol/L (3.4-5.1); Red Blood Cell Count 3.87 X10^6/uL (4.5-5.9); Red Cell Distribution Width 13.5 % (11.6-14.8); Sodium 133 mmol/L (137-145); Total Protein 7.4 g/dL (6.3-8.2); White Blood Cell Count 9.3 X10^3/uL (4.5-11.0)
[2022-06-19 16:34] LABS: Troponin I < 0.012 ng/mL (0.01-0.034)
[2022-06-19 16:39] LABS: Procalcitonin 0.06 ng/mL (<0.5)
[2022-06-19] MEDS: ALBUTEROL/IPRATROPIUM 3 ML AMPUL INH ×2 (16:39→19:17)
--- NOTE | 2022-06-19 16:53 | ED_ITS ---
HPI - General Adult General Chief complaint: Shortness of Breath/Dyspnea Stated complaint: COPD/O2@83 Time Seen by Provider: 06/19/22 16:34 Source: patient and family Mode of arrival: Ambulatory History of Present Illness HPI narrative: Patient is a 77-year-old male. History of COPD. Proximally 3 weeks ago he had a fall where he sustained multiple rib fractures on the right. This was found on a rib x-rays. Was seen in the emergency department a couple days later. Diagnosed with pneumonia. Was placed on azithromycin and also steroids. Is discharged home. Since that time he is also followed up with his primary doctor. Finish the course of azithromycin and steroids and was subsequently put on doxycycline. He is almost finished with that although he states that since the fall he has had continued problems catching his breath. No chest pain. No lower extremity swelling. He has been using his inhalers at home without any improvement. Also has an albuterol nebulizer which has not been helping his symptoms. No fevers. Related Data Home Medications Medication Instructions Recorded Confirmed ascorbic acid (vitamin C) 500 mg 1,000 mg PO DAILY 04/07/18 12/09/18 capsule aspirin 81 mg chewable tablet 81 mg PO DAILY 04/07/18 12/09/18 cholecalciferol (vitamin D3) 25 1,000 unit PO DAILY 04/07/18 12/09/18 mcg (1,000 unit) capsule mecobalamin (vitamin B12) 1,000 1,000 mcg sublingual DAILY 04/07/18 12/09/18 mcg disintegrating tablet,sublingual omega-3 fatty acids [Fish Oil 1,000 mg PO DAILY 04/07/18 12/09/18 Concentrate] tiotropium bromide 18 mcg capsule 1 cap inhalation DAILY 12/09/18 12/09/18 with inhalation device (Spiriva with HandiHaler) Previous Rx's Medication Instructions Recorded albuterol sulfate 90 mcg/actuation 1 puff inhalation Q4-6H PRN 08/09/18 aerosol inhaler shortness of breath #8.5 grams hydrocodone 5 mg-acetaminophen 325 1 tab PO Q4-6H PRN pain #20 tabs 05/20/22 mg tablet azithromycin 250 mg tablet See Rx Instructions PO .COMPLEX #6 05/29/22 (Zithromax Z-Cordell) tabs prednisone 50 mg tablet 50 mg PO DAILY #10 tabs 05/29/22 Allergies Allergy/AdvReac Type Severity Reaction Status Date / Time morphine AdvReac Hallucinati Verified 05/29/22 16:35 ng Review of Systems Review of Systems ROS Unobtainable: All systems reviewed & are unremarkable except as noted in HPI and below Patient History Medical History Atherosclerosis Bilateral inguinal hernia COPD (chronic obstructive pulmonary disease) Hepatic steatosis Surgical History H/O vasectomy Social History marital status: household members: spouse Smoking Status: Former smoker Tobacco: How many years used: 55 alcohol intake: current substance use type: does not use Smoking Status: Former smoker alcohol intake frequency: 3 or more drinks per day Substance Use Type: does not use Exam Initial Vital Signs Initial Vital Signs: Vital Signs Temperature 99.3 F 06/19/22 15:36 Pulse Rate 98 H 06/19/22 15:36 Respiratory Rate 24 06/19/22 15:36 Blood Pressure 156/75 H 06/19/22 15:36 Pulse Oximetry 90 L 06/19/22 15:36 Oxygen Delivery Method 06/19/22 15:36 Const General: comfortable and No ill appearing HENDE Head: normal to inspection and normocephalic Resp Effort & Inspection: not labored and tachypneic Auscultation: crackles, diminished lung sounds and no wheezes Cardio Rate: tachycardic Rhythm: regular rhythm GI Inspection: normal to inspection Skin General: no rashes or lesions noted Neuro General: patient alert, patient awake, patient oriented x3 and moves all extremities Cognition: normal cognition Speech: speech normal Extrem General: No edema Psych Appearance: grossly normal and well kempt Course Orders Ordered: ED Orders 06/19/22 15:39 XR chest 1V Stat EKG-12 Lead Stat RT Consult Eval and Treat NOW 06/19/22 15:49 Complete Blood Count AUTO DIFF Stat Comprehensive Metabolic Panel Stat Lactate (Lactic Acid) Stat Lipase Stat Partial Thromboplastin Time Stat Procalcitonin Stat Prothrombin Time INR Stat Troponin I Stat 06/19/22 16:52 Blood Culture Stat 06/19/22 16:55 CT angio chest PE protocol Stat 06/19/22 17:00 COVID19 -Nasal RAPID/Pre-Proc Stat 06/19/22 18:40 Sputum Culture Stat Levofloxacin (Levaquin) 750 mg in 150 mls @ 100 mls/hr IV NOW ONE Stop: 06/19/22 20:09 Discontinued Medications Albuterol/Ipratropium (Albuterol/Ipratropium 3 Ml Ampul) 3 ml INH NOW ONE Stop: 06/19/22 16:33 Last Admin: 06/19/22 16:39 Dose: 3 ml Documented By: ARIANE Albuterol/Ipratropium (Albuterol/Ipratropium 3 Ml Ampul) 3 ml INH NOW ONE Stop: 06/19/22 16:55 Albuterol/Ipratropium (Albuterol/Ipratropium 3 Ml Ampul) 3 ml INH NOW ONE Stop: 06/19/22 16:55 Sodium Chloride (Normal Saline 0.9%) 1,000 mls @ 1,000 mls/hr IV BOLUS ONE Stop: 06/19/22 16:38 Last Admin: 06/19/22 17:20 Dose: Not Given Documented By: NR Methylprednisolone (Methylprednisolone 125 Mg/2 Ml Vial) 125 mg IV NOW ONE Stop: 06/19/22 18:41 Ondansetron HCl (Ondansetron 4 Mg/2 Ml Inj) 4 mg IV NOW ONE Stop: 06/19/22 15:40 Last Admin: 06/19/22 17:20 Dose: Not Given Documented By: NR Ondansetron HCl (Ondansetron 4 Mg Odt) 4 mg SL NOW ONE Stop: 06/19/22 15:40 Last Admin: 06/19/22 17:20 Dose: Not Given Documented By: NR Vital Signs Vital signs: Vital Signs - 8 hr 06/19/22 15:36 Temperature 99.3 F Pulse Rate 98 H Respiratory Rate 24 Blood Pressure 156/75 H Pulse Oximetry 90 L Oxygen Delivery Method Room Air Medical Decision Making Medical Records Medical records reviewed: Yes I reviewed the patient's medical records. Lab Data Lab results reviewed: Yes I reviewed the patient's lab results. Result diagrams: 06/19/22 15:49 06/19/22 15:49 Labs: Lab Results 06/19/22 06/19/22 06/19/22 Range/Units 15:49 15:49 15:49 WBC 9.3 (4.5-11.0) X10^3/uL RBC 3.87 L (4.5-5.9) X10^6/uL Hgb 13.2 L (13.5-17.5) g/dL Hct 39.9 L (41-53) % MCV 103.2 H (80-100) fL MCH 34.2 H (26-34) PG MCHC 33.1 (30-36) % RDW 13.5 (11.6-14.8) % Plt Count 261 (150-400) X10^3/uL Neut % (Auto) 73.0 (50-75) % Lymph % (Auto) 14.5 L (25-40) % [place] % (Auto) 10.5 (3-14) % Eos % (Auto) 1.6 L (2-4) % Baso % (Auto) 0.4 (0-2) % Neut # (Auto) 6800 (1694-3652) /uL Lymph # (Auto) 1400 (7740-0961) /uL [place] # (Auto) 1000 H (0-900) /uL Eos # (Auto) 100 (0-450) /uL Baso # (Auto) 0 (0-100) /uL PT 13.6 H (10.1-12.7) SECONDS INR 1.2 (0.9-1.3) APTT 29 (26-36) SECONDS Sodium 133 L (137-145) mmol/L Potassium 4.4 (3.4-5.1) mmol/L Chloride 95 L (98-107) mmol/L Carbon Dioxide 27 (22-32) mmol/L BUN 19 (9-20) mg/dL Creatinine 0.62 L (0.66-1.25) mg/dL Estimated GFR > 60 (>60) mL/min BUN/Creatinine Ratio 30.6 H (6-22) Glucose 106 (80-110) mg/dL Lactate (0.7-2.1) mmol/L Calcium 9.2 (8.4-10.2) mg/dL Total Bilirubin 0.7 (0.2-1.3) mg/dL AST 28 (17-59) IU/L ALT 22 (<50) IU/L Alkaline Phosphatase 97 (38-126) U/L Troponin I (0.01-0.034) ng/mL Total Protein 7.4 (6.3-8.2) g/dL Albumin 3.7 (3.5-5.0) g/dL Globulin 3.7 (1.7-4.1) g/dL Albumin/Globulin Ratio 1.0 (1.0-2.8) Lipase 142 (23-300) U/L Procalcitonin 0.06 (<0.5) ng/mL SARS-CoV-2 (PCR) (Negative) 06/19/22 06/19/22 06/19/22 Range/Units 15:49 15:49 17:00 WBC (4.5-11.0) X10^3/uL RBC (4.5-5.9) X10^6/uL Hgb (13.5-17.5) g/dL Hct (41-53) % MCV (80-100) fL MCH (26-34) PG MCHC (30-36) % RDW (11.6-14.8) % Plt Count (150-400) X10^3/uL Neut % (Auto) (50-75) % Lymph % (Auto) (25-40) % [place] % (Auto) (3-14) % Eos % (Auto) (2-4) % Baso % (Auto) (0-2) % Neut # (Auto) (0545-5909) /uL Lymph # (Auto) (2827-9273) /uL [place] # (Auto) (0-900) /uL Eos # (Auto) (0-450) /uL Baso # (Auto) (0-100) /uL PT (10.1-12.7) SECONDS INR (0.9-1.3) APTT (26-36) SECONDS Sodium (137-145) mmol/L Potassium (3.4-5.1) mmol/L Chloride (98-107) mmol/L Carbon Dioxide (22-32) mmol/L BUN (9-20) mg/dL Creatinine (0.66-1.25) mg/dL Estimated GFR (>60) mL/min BUN/Creatinine Ratio (6-22) Glucose (80-110) mg/dL Lactate 1.4 (0.7-2.1) mmol/L Calcium (8.4-10.2) mg/dL Total Bilirubin (0.2-1.3) mg/dL AST (17-59) IU/L ALT (<50) IU/L Alkaline Phosphatase (38-126) U/L Troponin I < 0.012 (0.01-0.034) ng/mL Total Protein (6.3-8.2) g/dL Albumin (3.5-5.0) g/dL Globulin (1.7-4.1) g/dL Albumin/Globulin Ratio (1.0-2.8) Lipase (23-300) U/L Procalcitonin (<0.5) ng/mL SARS-CoV-2 (PCR) Negative (Negative) Imaging Data Chest x-ray: Radiologist's Impression: [address] [address] XRay Report Signed Patient: Jann Noriega MR#: [id number] : 1945 Acct:[id number] Age/Sex: 77 / M Date of Service: 06/19/22 Loc: ED Accession Number: [id number] ?? Procedure: XR chest 1V Ordering Provider: Tho Loza D.O. PROCEDURE:? XR CHEST 1V ? INDICATIONS:? suspected sepsis ? TECHNIQUE:? One view of the chest was acquired.? ? COMPARISON:? [facility], , XR CHEST 2V, 05/29/2022, 14:20. ? FINDINGS:? ? Surgical changes and devices:? None.? ? Lungs and pleura:? Increased interstitial prominence within the right base ? Mediastinum:? Mediastinal contours appear normal.? Heart size is normal.? ? Bones and chest wall:? No suspicious bony lesions.? Overlying soft tissues appear unremarkable.? ? IMPRESSION:? Increased right basilar interstitial prominence suggestive of developing pneumonia versus atelectasis/dependent change. ? ? Dictated by: Ileana Mckeon M.D. on 06/19/2022 at 16:36 ? ? Approved by: Ileana Mckeon M.D. on 06/19/2022 at 16:36?? CT scan - chest: Radiologist's Impression: Close Chest CTA (Signed) Rome Crook - 06/19/22 Chest X-Ray (Signed) Ileana Mckeon - 06/19/22 Chest X-Ray (Signed) Ileana Mckeon - 05/29/[address] (Signed) uYe Hughes - 05/28/22 Ribs X-Ray (Signed) Rigo Mcnealderic - 05/20/22 Abdomen/Pelvis CT (Signed) GottliebRome - 11/02/21 Abdomen/Pelvis CT (Signed) Nain Argueta - 12/16/[address] (Signed) Nain Argueta - 12/31/18 Telemetry Strips 12/09/18 PFT Result 10/03/18 Chest X-Ray (Signed) Rachel Murray - 08/09/18 Renal Ultrasound (Signed) Nain Argueta - 05/30/18 Abdomen/Pelvis CT (Signed) Rachel Murray - 03/30/18 Launch?[place] [address] CT Scan Report Signed Patient: Jann Noriega MR#: [id number] : 1945 Acct:[id number] Age/Sex: 77 / M Date of Service: 06/19/22 Loc: ED Accession Number: [id number] ?? Procedure: CT angio chest PE protocol Ordering Provider: Tho Loza D.O. PROCEDURE:? CT ANGIO CHEST PE PROTOCOL ? INDICATIONS:? Chest pain, shortness of breath, tachycardia ? TECHNIQUE:? After the administration of intravenous contrast, 2 mm thick sections acquired from the pulmonary apices to the posterior costophrenic angles.? 3-dimensional maximum intensity projection (MIP) coronal and sagittal reformats were then acquired through the thorax.? For radiation dose reduction, the following was used:? automated exposure control, adjustment of mA and/or kV according to patient size.? ? COMPARISON:? [facility], CT, CT CHEST WO CON, 05/28/2022, 14:05. ? FINDINGS:? Image quality:? adequate.? ? Pulmonary arteries:? Pulmonary arteries are normal in size, and demonstrate no intraluminal filling defects to suggest central pulmonary embolism.? ? Lungs and pleura:? Small right pleural effusion, decreased.? Adjacent dependent right lower lobe consolidative opacity, also decreased.? New 10 mm irregular nodule left lower lobe (5/188) with adjacent ground-glass opacity and adjacent micro nodularity. Emphysema is present.? No pneumothorax ? Mediastinum:? Small pericardial effusion similar to before.? No mediastinal or hilar adenopathy.? Thoracic aorta is normal in caliber and enhancement.? Esophagus is normal in caliber.? Multivessel coronary artery calcifications and/or stents.? Small hiatal hernia. ? Bones and chest wall:? Multiple subacute right rib fractures. ? Abdomen:? Visualized upper abdominal solid organs appear normal in the early arterial phase of enhancement.? ? IMPRESSION:? 1. No pulmonary embolism demonstrated. 2. Multiple subacute right rib fractures. 3. Small right pleural effusion, decreased, adjacent consolidative opacity in the dependent right lower lobe also decreased. 4. New left lower lobe pulmonary nodule with adjacent ground-glass opacity and adjacent micronodularity, likely infectious/inflammatory, neoplasm not excludable.? Correlation for pneumonia and/or aspiration may be helpful, imaging follow-up can be obtained as indicated.? ? ? Dictated by: Rome Crook M.D. on 06/19/2022 at 17:45 ? ? Approved by: Rome Crook M.D. on 06/19/2022 at 17:57? ECG Data Attestation: I personally reviewed and interpreted this ECG as follows: Interpretation: Sinus tachycardia Ventricular rate 106 Normal axis Normal QRS Normal QTC No ST T wave changes MDM Narrative Medical decision making narrative: Afebrile. Labs are relatively unremarkable. Patient is hypoxic on room air with saturations in the mid 80s the CT scan of the chest just show the rib fractures but no pneumothorax. Also shows improvement of the other findings however he still remains hypoxic and does have a productive cough. Will treat as a COPD exacerbation with steroids and antibiotics. This also cover any potential pneumonia. Patient is not septic. Discussed the case with Dr. Benitez. Will admit for further evaluation and treatment. Discussed the need for admission with the patient and family at bedside. They expressed understanding and agreement as well. Discharge Plan Departure Patient Disposition: Admitted As Inpatient Clinical Impression: Acute exacerbation of chronic obstructive airways disease, Hypoxia, Multiple rib fractures, Pneumonia
--- NOTE | 2022-06-19 16:55 | DI.CT.S_ITS ---
PROCEDURE: CT ANGIO CHEST PE PROTOCOL INDICATIONS: Chest pain, shortness of breath, tachycardia TECHNIQUE: After the administration of intravenous contrast, 2 mm thick sections acquired from the pulmonary apices to the posterior costophrenic angles. 3-dimensional maximum intensity projection (MIP) coronal and sagittal reformats were then acquired through the thorax. For radiation dose reduction, the following was used: automated exposure control, adjustment of mA and/or kV according to patient size. COMPARISON: [facility], CT, CT CHEST WO CON, 05/28/2022, 14:05. FINDINGS: Image quality: adequate. Pulmonary arteries: Pulmonary arteries are normal in size, and demonstrate no intraluminal filling defects to suggest central pulmonary embolism. Lungs and pleura: Small right pleural effusion, decreased. Adjacent dependent right lower lobe consolidative opacity, also decreased. New 10 mm irregular nodule left lower lobe (5/188) with adjacent ground-glass opacity and adjacent micro nodularity. Emphysema is present. No pneumothorax Mediastinum: Small pericardial effusion similar to before. No mediastinal or hilar adenopathy. Thoracic aorta is normal in caliber and enhancement. Esophagus is normal in caliber. Multivessel coronary artery calcifications and/or stents. Small hiatal hernia. Bones and chest wall: Multiple subacute right rib fractures. Abdomen: Visualized upper abdominal solid organs appear normal in the early arterial phase of enhancement. IMPRESSION: 1. No pulmonary embolism demonstrated. 2. Multiple subacute right rib fractures. 3. Small right pleural effusion, decreased, adjacent consolidative opacity in the dependent right lower lobe also decreased. 4. New left lower lobe pulmonary nodule with adjacent ground-glass opacity and adjacent micronodularity, likely infectious/inflammatory, neoplasm not excludable. Correlation for pneumonia and/or aspiration may be helpful, imaging follow-up can be obtained as indicated. Dictated by: Rome Crook M.D. on 06/19/2022 at 17:45 Approved by: Rome Crook M.D. on 06/19/2022 at 17:57
--- NOTE | 2022-06-19 18:04 | PC.NURSE ---
pt has COPD, four weeks ago he fell and broke 5 ribs. 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 pt states he was also put on antibiotics for pneumonia, he has 3 doses left. pt has been having hard time breathing, especially when going up the stairs in his house. he does not feel like he is getting his medications into his lungs when he takes them, because he cannot take a deep breath. pt wants to clarify that he does not feel SOB but that he cant breathe. pt clarifies that he does not hurt too bad anymore when breathing and that is not the reason he cannot take a deep breath in. pt came in today because he literally felt like I was dying. states his oxygen levels were in the low 80s.
[2022-06-19 18:50] LABS: COVID19 -Nasal RAPID Negative (Negative)
[2022-06-19] MEDS: methylPREDNISolone 125 MG/2 ML VIAL IV (19:02)
[2022-06-19] MEDS: levoFLOXacin 750 MG/150 ML PIGGYBACK 100 MG IV (19:04)
--- NOTE | 2022-06-19 19:15 | PC.NURSE ---
Report received - assumed care of pt at this time
[2022-06-19 19:24] VITALS: PULSE 100; RESP 18; O2SAT 93
--- NOTE | 2022-06-19 20:00 | PC.NURSE ---
Pt's O2 sat at 88% - NC not connected - placed on 4L of O2 va NC - tolerated well - improved O2 sats
[2022-06-19 20:07] VITALS: BMI 24.0
[2022-06-19 20:18] VITALS: BP 133/84
--- NOTE | 2022-06-19 20:30 | PC.NURSE ---
Report called to JANELLE Boyd
[2022-06-19 20:55] VITALS: BP 156/77; PULSE 104; RESP 24; TEMP 36.4; O2SAT 95
--- NOTE | 2022-06-19 23:02 | PM.HP.1 ---
History of Present Illness History of Present Illness Date Patient Seen: 06/19/22 Time Patient Seen: 21:45 Chief complaint: COPD/O2@83 Narrative: Jann Noriega is a 77-year-old male with a history of tobacco use with a pack history of 50 years, COPD, bladder cancer in remission and under annual surveillance, hyperlipidemia and osteoporosis diagnosed last year presents with a 4-5 week history of fatigue, intermittent bouts of shortness of breath that happened shortly after a fall resulting in 5 left-sided posterior rib fractures. He was seen by his PCP who put him on more antibiotics and at that time ordered a CT scan. He became very short of breath was seen again and told that his ribs that healed. He continues to have a painful spot in his back. He states he is tired, cold and shaky all the time. He presented because he became quite short of breath to the point where he was not able to use his inhalers effectively. He denies fever, anterior chest pain, nausea or vomiting, dysurea, diarrhea or constipation. He does endorse having continued back pain where his rib fractures occurred. Chest x-ray reported ??Increased right basilar interstitial prominence suggestive of developing pneumonia versus atelectasis/dependent change.CTA of the chest was negative for a PE, continued to note multiple subacute right rib fractures, a right small pleural effusion and a new left lower lobe pulmonary nodule with adjacent ground-glass opacity and adjacent micronodularity likely infectious/inflammatory. They indicated that a neoplasm was not ruled out and he should have follow-up imaging. He is afebrile, blood pressure 156/77 heart rate 104 respiratory rate 24 oxygen saturation 95% on 4 L he weighs 67.5 kg with a BMI of 24. He is mildly anemic with a hemoglobin and hematocrit of 13.2 and 39.9 respectively sodium was 133, rest of his chemistries were unremarkable procalcitonin was negative and COVID-19 PCR is negative. Patient History Medical History Atherosclerosis Bilateral inguinal hernia COPD (chronic obstructive pulmonary disease) Hepatic steatosis Surgical History H/O vasectomy Family & Social History Family History Mother Heart disease Father Status cardiac pacemaker Social History: household members spouse Prior Living Arrangements House Safety & Behavioral: Feels Safe in Current Yes Environment Been Physically Hurt or No Threatened By a Person Tobacco & Substance use: Smoking Status Former smoker alcohol intake current alcohol intake frequency 0-2 drinks per day Substance Use Type does not use Meds Home Medications and Allergies Home Medications Medication Instructions Recorded Confirmed Type tiotropium bromide 18 mcg capsule 1 cap inhalation DAILY 12/09/18 06/19/22 History with inhalation device (Spiriva with HandiHaler) alendronate 70 mg tablet 70 mg PO WEEKLY 06/19/22 06/19/22 History fluticasone furoate 200 1 ea inhalation BID 06/19/22 06/19/22 History mcg-vilanterol 25 mcg/dose inhalation powder (Breo Ellipta) levalbuterol tartrate 45 45 mcg inhalation DAILY 06/19/22 06/19/22 History mcg/actuation aerosol inhaler rosuvastatin 10 mg tablet 10 mg PO DAILY 06/19/22 06/19/22 History Allergies Allergy/AdvReac Type Severity Reaction Status Date / Time morphine AdvReac Hallucinati Verified 05/29/22 16:35 ng Review of Systems Review of Systems ROS: Yes All systems reviewed with the patient and are negative except as otherwise documented Exam Vital Signs (past 8 hours): - 06/19/22 15:36 06/19/22 19:24 06/19/22 20:18 Temperature 99.3 F Pulse Rate 98 H 100 H Respiratory Rate 24 18 Blood Pressure 156/75 H 133/84 Pulse Oximetry 90 L 93 Oxygen Delivery Method Room Air Nasal Cannula Oxygen Flow Rate 2 06/19/22 20:55 Temperature 97.6 F Pulse Rate 104 H Respiratory Rate 24 Blood Pressure 156/77 H Pulse Oximetry 95 Oxygen Delivery Method Oxygen Flow Rate 4 Oxygen Delivery Method Nasal Cannula Oxygen Flow Rate 4 Narrative Exam Narrative: Gen: Alert, oriented, well-developed 77 y.o. male, appears fatigued HEENT: normocephalic, atraumatic, conjunctiva clear, sclera non-icteric, oral mucosa pink and moist Neck: supple, full ROM, no JVD, trachea is midline Resp: Lungs faint wheezes and rhonchi, non-labored breathing on supplemental O2 CV: RRR, no murmur or rubs Abd: soft, non-tender, normoactive BTs Skin: no lesions or rashes, dry and intact Neuro: Alert and oriented X 4 w/no focal deficits. Speech clear and coherent. Extremities: moves all 4 extremities, is ambulatory, negative Eli?s sign Psyche: normal mood and affect. Objective Labs Result Diagrams: 06/19/22 15:49 06/19/22 15:49 Labs: Laboratory Results - last 24 hr 06/19/22 06/19/22 06/19/22 15:49 15:49 15:49 WBC 9.3 RBC 3.87 L Hgb 13.2 L Hct 39.9 L MCV 103.2 H MCH 34.2 H MCHC 33.1 RDW 13.5 Plt Count 261 Neut % (Auto) 73.0 Lymph % (Auto) 14.5 L [place] % (Auto) 10.5 Eos % (Auto) 1.6 L Baso % (Auto) 0.4 Neut # (Auto) 6800 Lymph # (Auto) 1400 [place] # (Auto) 1000 H Eos # (Auto) 100 Baso # (Auto) 0 PT 13.6 H INR 1.2 APTT 29 Sodium 133 L Potassium 4.4 Chloride 95 L Carbon Dioxide 27 BUN 19 Creatinine 0.62 L Estimated GFR > 60 BUN/Creatinine Ratio 30.6 H Glucose 106 Lactate Calcium 9.2 Total Bilirubin 0.7 AST 28 ALT 22 Alkaline Phosphatase 97 Troponin I Total Protein 7.4 Albumin 3.7 Globulin 3.7 Albumin/Globulin Ratio 1.0 Lipase 142 Procalcitonin 0.06 SARS-CoV-2 (PCR) 06/19/22 06/19/22 06/19/22 15:49 15:49 17:00 WBC RBC Hgb Hct MCV MCH MCHC RDW Plt Count Neut % (Auto) Lymph % (Auto) [place] % (Auto) Eos % (Auto) Baso % (Auto) Neut # (Auto) Lymph # (Auto) [place] # (Auto) Eos # (Auto) Baso # (Auto) PT INR APTT Sodium Potassium Chloride Carbon Dioxide BUN Creatinine Estimated GFR BUN/Creatinine Ratio Glucose Lactate 1.4 Calcium Total Bilirubin AST ALT Alkaline Phosphatase Troponin I < 0.012 Total Protein Albumin Globulin Albumin/Globulin Ratio Lipase Procalcitonin SARS-CoV-2 (PCR) Negative Assessment & Plan Assessment & Plan narrative: Jann Noriega is admitted for a COPD exacerbation with hypoxic respiratory failure. COPD exacerbation with hypoxic respiratory failure, acute, present on admission RT consult/tx for supplemental O2, w/as needed albuterol and DuoNeb Pulmicort nebulizers b.i.d. He normally sees Dr. Navarro, payroll coordinator at [facility] Dyslipidemia, chronic He normally takes rosuvastatin 10 mg and may continue Osteoporosis, chronic He normally takes weekly alendronate and took his weekly dose this past Saturday. We will need to resume if he continues to be admitted although this is doubtful VTE Prophylaxis: Wells risk score 6 X Enoxaparin 40 mg subQ once daily X Bilateral SCDs Patient is placed into observation as his stay is not expected to exceed 2 midnights. FEN: IV fluids: saline lock, diet: general, labs: CBC, C/BMP, liver enzymes, Mag, PT/INR Consultants None Dispo: probable d/c to home Code status: Full code as discussed with the patient who identifies his Eryn as his surrogate and POA. [X] I have utilized all available immediate resources to obtain, update, or review of the patient's current medications VTE Deep Vein Thrombosis/Pulmonary Embolism Present on Admission: No MIPS - Admit I confirm the patient?s Advance Care Plan is present, Code status is documented, Surrogate decision maker is in patient?s record: Yes MIPS - DC The patient has current or prior documentation of left ventricular ejection fraction (LVEF) less than 40%, or moderate or severely depressed left ventricular systolic function.: No COVID-19 COVID-19 status: Negative Result date/Date tested (Pos, Neg/Pending): 06/19/22 Time Spent With Patient Critical Care time: I spent a total of [] minutes of critical care time on this patient's care today; this time is exclusive of procedural time. Scores Wells' Criteria for PE Clinical signs and symptoms of DVT: Yes PE is #1 Dx or equally likely: No Heart rate > 100: Yes Immobilization at least 3 days or surg in previous 4 weeks: Yes History of PE or DVT: No Hemoptysis: No Malignancy w/Treatment within 6 months or palliative: No Wells' PE Score total: 6.0 Quality VTE Deep Vein Thrombosis/Pulmonary Embolism Present on Admission: No
--- NOTE | 2022-06-19 23:46 | PM.HP.1 ---
History of Present Illness History of Present Illness Date Patient Seen: 06/19/22 Time Patient Seen: 21:45 Chief complaint: COPD/O2@83 Narrative: Jann Noriega is a 77-year-old male with a history of tobacco use with a pack history of 50 years, COPD, bladder cancer in remission and under annual surveillance, hyperlipidemia and osteoporosis diagnosed last year presents with a 4-5 week history of fatigue, intermittent bouts of shortness of breath that happened shortly after a fall resulting in 5 left-sided posterior rib fractures. He was seen by his PCP who put him on more antibiotics and at that time ordered a CT scan. He became very short of breath was seen again and told that his ribs that healed. He continues to have a painful spot in his back. He states he is tired, cold and shaky all the time. He presented because he became quite short of breath to the point where he was not able to use his inhalers effectively. He denies fever, anterior chest pain, nausea or vomiting, dysurea, diarrhea or constipation. He does endorse having continued back pain where his rib fractures occurred. Chest x-ray reported ??Increased right basilar interstitial prominence suggestive of developing pneumonia versus atelectasis/dependent change.CTA of the chest was negative for a PE, continued to note multiple subacute right rib fractures, a right small pleural effusion and a new left lower lobe pulmonary nodule with adjacent ground-glass opacity and adjacent micronodularity likely infectious/inflammatory. They indicated that a neoplasm was not ruled out and he should have follow-up imaging. He is afebrile, blood pressure 156/77 heart rate 104 respiratory rate 24 oxygen saturation 95% on 4 L he weighs 67.5 kg with a BMI of 24. He is mildly anemic with a hemoglobin and hematocrit of 13.2 and 39.9 respectively sodium was 133, rest of his chemistries were unremarkable procalcitonin was negative and COVID-19 PCR is negative. Patient History Medical History Atherosclerosis Bilateral inguinal hernia COPD (chronic obstructive pulmonary disease) Hepatic steatosis Surgical History H/O vasectomy Family & Social History Family History Mother Heart disease Father Status cardiac pacemaker Social History: household members spouse Prior Living Arrangements House Safety & Behavioral: Feels Safe in Current Yes Environment Been Physically Hurt or No Threatened By a Person Tobacco & Substance use: Smoking Status Former smoker alcohol intake current alcohol intake frequency 0-2 drinks per day Substance Use Type does not use Meds Home Medications and Allergies Home Medications Medication Instructions Recorded Confirmed Type tiotropium bromide 18 mcg capsule 1 cap inhalation DAILY 12/09/18 06/19/22 History with inhalation device (Spiriva with HandiHaler) alendronate 70 mg tablet 70 mg PO WEEKLY 06/19/22 06/19/22 History fluticasone furoate 200 1 ea inhalation BID 06/19/22 06/19/22 History mcg-vilanterol 25 mcg/dose inhalation powder (Breo Ellipta) levalbuterol tartrate 45 45 mcg inhalation DAILY 06/19/22 06/19/22 History mcg/actuation aerosol inhaler rosuvastatin 10 mg tablet 10 mg PO DAILY 06/19/22 06/19/22 History Allergies Allergy/AdvReac Type Severity Reaction Status Date / Time morphine AdvReac Hallucinati Verified 05/29/22 16:35 ng Review of Systems Review of Systems ROS: Yes All systems reviewed with the patient and are negative except as otherwise documented Exam Vital Signs (past 8 hours): - 06/19/22 19:24 06/19/22 20:18 06/19/22 20:55 Temperature 97.6 F Pulse Rate 100 H 104 H Respiratory Rate 18 24 Blood Pressure 133/84 156/77 H Pulse Oximetry 93 95 Oxygen Delivery Method Nasal Cannula Oxygen Flow Rate 2 4 06/19/22 20:07 Temperature Pulse Rate Respiratory Rate Blood Pressure Pulse Oximetry Oxygen Delivery Method Nasal Cannula Oxygen Flow Rate Oxygen Delivery Method Nasal Cannula Oxygen Flow Rate 4 Narrative Exam Narrative: Gen: Alert, oriented, well-developed [] y.o. [] fe[]male, NAD HEENT: normocephalic, atraumatic, conjunctiva clear, sclera non-icteric, oral mucosa pink and moist Neck: supple, full ROM, no JVD, trachea is midline Resp: Lungs CTA, non-labored breathing CV: RRR, no murmur or rubs Abd: soft, non-tender, normoactive BTs Skin: no lesions or rashes, dry and intact Neuro: Alert and oriented X 4 w/no focal deficits. Speech clear and coherent. Extremities: moves all 4 extremities, is ambulatory, negative Eli?s sign Psyche: normal mood and affect. Objective Labs Result Diagrams: 06/19/22 15:49 06/19/22 15:49 Labs: Laboratory Results - last 24 hr 06/19/22 06/19/22 06/19/22 15:49 15:49 15:49 WBC 9.3 RBC 3.87 L Hgb 13.2 L Hct 39.9 L MCV 103.2 H MCH 34.2 H MCHC 33.1 RDW 13.5 Plt Count 261 Neut % (Auto) 73.0 Lymph % (Auto) 14.5 L [place] % (Auto) 10.5 Eos % (Auto) 1.6 L Baso % (Auto) 0.4 Neut # (Auto) 6800 Lymph # (Auto) 1400 [place] # (Auto) 1000 H Eos # (Auto) 100 Baso # (Auto) 0 PT 13.6 H INR 1.2 APTT 29 Sodium 133 L Potassium 4.4 Chloride 95 L Carbon Dioxide 27 BUN 19 Creatinine 0.62 L Estimated GFR > 60 BUN/Creatinine Ratio 30.6 H Glucose 106 Lactate Calcium 9.2 Total Bilirubin 0.7 AST 28 ALT 22 Alkaline Phosphatase 97 Troponin I Total Protein 7.4 Albumin 3.7 Globulin 3.7 Albumin/Globulin Ratio 1.0 Lipase 142 Procalcitonin 0.06 SARS-CoV-2 (PCR) 06/19/22 06/19/22 06/19/22 15:49 15:49 17:00 WBC RBC Hgb Hct MCV MCH MCHC RDW Plt Count Neut % (Auto) Lymph % (Auto) [place] % (Auto) Eos % (Auto) Baso % (Auto) Neut # (Auto) Lymph # (Auto) [place] # (Auto) Eos # (Auto) Baso # (Auto) PT INR APTT Sodium Potassium Chloride Carbon Dioxide BUN Creatinine Estimated GFR BUN/Creatinine Ratio Glucose Lactate 1.4 Calcium Total Bilirubin AST ALT Alkaline Phosphatase Troponin I < 0.012 Total Protein Albumin Globulin Albumin/Globulin Ratio Lipase Procalcitonin SARS-CoV-2 (PCR) Negative Assessment & Plan Time Spent With Patient Critical Care time: I spent a total of [] minutes of critical care time on this patient's care today; this time is exclusive of procedural time. Quality VTE Deep Vein Thrombosis/Pulmonary Embolism Present on Admission: No
[2022-06-20 00:50] VITALS: BP 134/76; PULSE 89; RESP 18; TEMP 36.7; O2SAT 92
[2022-06-20 06:00] VITALS: BP 121/80; PULSE 88; RESP 17; TEMP 36.1; O2SAT 94
[2022-06-20 06:45] LABS: Add Manual Diff / Slide Review NO; Basophils Absolute Auto 0 /uL (0-100); Basophils Percent Auto 0.1 % (0-2); Eosinophils Absolute Auto 0 /uL (0-450); Hematocrit 34.8 % (41-53); Hemoglobin 12.2 g/dL (13.5-17.5); Lymphocytes Absolute Auto 400 /uL (1100-4500); Lymphocytes Percent Auto 7.4 % (25-40); Mean Corpuscular Hemoglobin 35.2 PG (26-34); Mean Corpuscular Volume 100.3 fL (80-100); Monocytes Absolute Auto 100 /uL (0-900); Monocytes Percent Auto 1.7 % (3-14); Neutrophils Absolute Auto 4400 /uL (1500-7000); Neutrophils Percent Auto 90.8 % (50-75); Platelet Count 244 X10^3/uL (150-400); Red Blood Cell Count 3.47 X10^6/uL (4.5-5.9); Red Cell Distribution Width 13.5 % (11.6-14.8); White Blood Cell Count 4.9 X10^3/uL (4.5-11.0)
[2022-06-20 06:53] LABS: Alanine Aminotransferase 20 IU/L (<50); Albumin 3.3 g/dL (3.5-5.0); Alkaline Phosphatase 89 U/L (38-126); Aspartate Aminotransferase 22 IU/L (17-59); BUN Creatinine Ratio 24.1 (6-22); Bilirubin Total 0.5 mg/dL (0.2-1.3); Blood Urea Nitrogen 13 mg/dL (9-20); Calcium 8.7 mg/dL (8.4-10.2); Carbon Dioxide 24 mmol/L (22-32); Chloride 99 mmol/L (98-107); Estimated Glomerular Filt Rate > 60 mL/min (>60); Globulin 3.4 g/dL (1.7-4.1); Glucose 152 mg/dL (80-110); HEMOLYSIS < 15 (0-50); Magnesium 1.6 mg/dL (1.6-2.3); Potassium 4.1 mmol/L (3.4-5.1); Sodium 131 mmol/L (137-145); Total Protein 6.7 g/dL (6.3-8.2)
--- NOTE | 2022-06-20 08:04 | P.PN_ITS ---
Subjective Subjective Date Patient Seen: 06/20/22 Time Patient Seen: 10:00 Interval history: Patient's breathing improving slowly. Denies pain with deep breaths and his fractures ribs. Exam Vital Signs (past 8 hours): - 06/20/22 00:50 06/20/22 06:00 06/20/22 07:30 Temperature 98.1 F 96.9 F L Pulse Rate 89 88 Respiratory Rate 18 17 Blood Pressure 134/76 121/80 Pulse Oximetry 92 94 Oxygen Delivery Method Nasal Cannula Oxygen Flow Rate 4.5 4.5 Oxygen Delivery Method Nasal Cannula Oxygen Flow Rate 4.5 Narrative Exam Narrative: Gen: Alert, oriented, well-developed 77 y.o. male, appears fatigued HEENT: normocephalic, atraumatic, conjunctiva clear, sclera non-icteric, oral mucosa pink and moist Neck: supple, full ROM, no JVD, trachea is midline Resp: Bibasilar crackles present, faint wheezes CV: RRR, no murmur or rubs Abd: soft, non-tender, normoactive BTs Skin: no lesions or rashes, dry and intact Neuro: Alert and oriented X 4 w/no focal deficits. Speech clear and coherent. Extremities: moves all 4 extremities, is ambulatory, negative Eli?s sign Psyche: normal mood and affect. Objective Labs Result Diagrams: 06/20/22 06:05 06/20/22 06:05 Labs: Laboratory Results - last 24 hr 06/19/22 06/19/22 06/19/22 15:49 15:49 15:49 WBC 9.3 RBC 3.87 L Hgb 13.2 L Hct 39.9 L MCV 103.2 H MCH 34.2 H MCHC 33.1 RDW 13.5 Plt Count 261 Neut % (Auto) 73.0 Lymph % (Auto) 14.5 L [place] % (Auto) 10.5 Eos % (Auto) 1.6 L Baso % (Auto) 0.4 Neut # (Auto) 6800 Lymph # (Auto) 1400 [place] # (Auto) 1000 H Eos # (Auto) 100 Baso # (Auto) 0 PT 13.6 H INR 1.2 APTT 29 Sodium 133 L Potassium 4.4 Chloride 95 L Carbon Dioxide 27 BUN 19 Creatinine 0.62 L Estimated GFR > 60 BUN/Creatinine Ratio 30.6 H Glucose 106 Lactate Calcium 9.2 Magnesium Total Bilirubin 0.7 AST 28 ALT 22 Alkaline Phosphatase 97 Troponin I Total Protein 7.4 Albumin 3.7 Globulin 3.7 Albumin/Globulin Ratio 1.0 Lipase 142 Procalcitonin 0.06 SARS-CoV-2 (PCR) 06/19/22 06/19/22 06/19/22 15:49 15:49 17:00 WBC RBC Hgb Hct MCV MCH MCHC RDW Plt Count Neut % (Auto) Lymph % (Auto) [place] % (Auto) Eos % (Auto) Baso % (Auto) Neut # (Auto) Lymph # (Auto) [place] # (Auto) Eos # (Auto) Baso # (Auto) PT INR APTT Sodium Potassium Chloride Carbon Dioxide BUN Creatinine Estimated GFR BUN/Creatinine Ratio Glucose Lactate 1.4 Calcium Magnesium Total Bilirubin AST ALT Alkaline Phosphatase Troponin I < 0.012 Total Protein Albumin Globulin Albumin/Globulin Ratio Lipase Procalcitonin SARS-CoV-2 (PCR) Negative 06/20/22 06/20/22 06:05 06:05 WBC 4.9 RBC 3.47 L Hgb 12.2 L Hct 34.8 L MCV 100.3 H MCH 35.2 H MCHC 35.0 RDW 13.5 Plt Count 244 Neut % (Auto) 90.8 H Lymph % (Auto) 7.4 L [place] % (Auto) 1.7 L Eos % (Auto) 0.0 L Baso % (Auto) 0.1 Neut # (Auto) 4400 Lymph # (Auto) 400 L [place] # (Auto) 100 Eos # (Auto) 0 Baso # (Auto) 0 PT INR APTT Sodium 131 L Potassium 4.1 Chloride 99 Carbon Dioxide 24 BUN 13 Creatinine 0.54 L Estimated GFR > 60 BUN/Creatinine Ratio 24.1 H Glucose 152 H Lactate Calcium 8.7 Magnesium 1.6 Total Bilirubin 0.5 AST 22 ALT 20 Alkaline Phosphatase 89 Troponin I Total Protein 6.7 Albumin 3.3 L Globulin 3.4 Albumin/Globulin Ratio 1.0 Lipase Procalcitonin SARS-CoV-2 (PCR) PFSH Medical History Atherosclerosis Bilateral inguinal hernia COPD (chronic obstructive pulmonary disease) Hepatic steatosis Surgical History H/O vasectomy Family History Mother Heart disease Father Status cardiac pacemaker Social History marital status: household members: spouse Smoking Status: Former smoker Tobacco: How many years used: 55 alcohol intake: current substance use type: does not use Assessment & Plan Assessment & Plan narrative: Jann Noriega is admitted for a COPD exacerbation with hypoxic respiratory failure. COPD exacerbation with hypoxic respiratory failure, acute, present on admission * RT consult/tx for supplemental O2, w/as needed albuterol and DuoNeb * Pulmicort nebulizers b.i.d. * He normally sees Dr. Navarro, insurance administrative assistant at [facility] * prednisone x5 days * rales on exam, start lasix 20 IV daily * titrate O2 to >88% Recent right sided rib fractures x5 * Patient reports good healing and no pain currently with deep breaths * continue incentive spirometry Dyslipidemia, chronic * He normally takes rosuvastatin 10 mg and may continue Osteoporosis, chronic * He normally takes weekly alendronate and took his weekly dose this past Saturday. 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 Code status: Full code as discussed with the patient who identifies his Eryn as his surrogate and POA. COVID-19 COVID-19 status: Negative Result date/Date tested (Pos, Neg/Pending): 06/19/22 Time Spent With Patient Critical Care time: I spent a total of [] minutes of critical care time on this patient's care today; this time is exclusive of procedural time. Quality VTE Deep Vein Thrombosis/Pulmonary Embolism Present on Admission: No
[2022-06-20 08:32] VITALS: PULSE 88; RESP 16; O2SAT 93
[2022-06-20] MEDS: IPRATROPIUM 0.5 MG/2.5 ML NEB INH (08:32)
[2022-06-20] MEDS: BUDESONIDE 0.5 MG/2 ML NEB INH ×2 (08:32→19:39)
[2022-06-20] MEDS: ALBUTEROL 2.5 MG/3 ML NEB (ADULT) INH (08:32)
[2022-06-20] MEDS: cefTRIAXone 1,000 MG in SODIUM CHLORIDE 0.9% 100 ML 200 MG IV (08:56)
[2022-06-20] MEDS: AZITHROMYCIN 250 MG TABLET 500 MG PO (08:57)
[2022-06-20] MEDS: predniSONE 20 MG TABLET 40 MG PO (08:57)
[2022-06-20] MEDS: ASPIRIN 81 MG CHEW TAB PO (08:57)
[2022-06-20] MEDS: ATORVASTATIN 20 MG TABLET PO (08:57)
[2022-06-20] MEDS: ENOXAPARIN 40 MG/0.4 ML SYRINGE SUBCUT (08:57)
[2022-06-20] MEDS: MAGNESIUM CHLORIDE 64 MG TABLET 128 MG PO (09:55)
[2022-06-20 11:42] VITALS: BP 138/78; PULSE 96; RESP 18; TEMP 36.6; O2SAT 91
[2022-06-20] MEDS: ALBUTEROL/IPRATROPIUM 3 ML AMPUL INH ×3 (12:17→19:39)
--- NOTE | 2022-06-20 12:25 | CM.DANOTE ---
DCP: Case received, EMR reviewed and met with patient. Spouse, Eryn, was also present in the room. Introduced self and role. Was able to obtain information regarding patient's baseline activity status at home prior to hospitalization. DCP assessment completed with information currently available. Patient is a 77 year old male who admitted yesterday evening to the care of the hospitalist team. PCP: Dr. Claudia Hansen. Payer: confirmed: [facility]. Patient came to the hospital via private vehicle secondary to having difficulty with catching his breath. Notes indicate that patient had had a fall about 3 weeks ago, and sustained multiple rib fractures. Patient was seen in the ER a few days later, and was diagnosed with pneumonia. He was placed on antibiotics and steroids. Since then, patient has had increased shortness of breath. Patient was admitted with COPD exacerbation with hypoxic respiratory failure. Met with patient and spouse in the room. Patient is currently on oxygen. Patient resides with spouse in [place]. He is independent at his baseline, does not use any DME supplies, and does drive. He is not on home oxygen. P: DCP to continue to follow. Patient should be able to go home when deemed medically stable. Rebeca Whitley RN/Custom Tailor Discharge Planning/Care Management CM Discharge Assessment Start: 06/20/22 12:18 Freq: Status: Active Protocol: Document 06/20/22 12:24 (Rec: 06/20/22 12:25 [id number]) Discharge Planning Assessment Assigned Senior Branch Manager Rebeca Whitley RN/Custom Tailor Advance Directives? Yes Advance Directives on File No History Provided By Patient,Medical Record Prior Living Arrangements House Household Members spouse Type of transporation used prior to Drives own vehicle admit Independent with ADL's Yes Is patient alert and oriented? Yes Caregiver for Another No Barriers to Discharge No Discharge Plan Home Transportation Arrangement Spouse Referrals Initiated None needed Whiteboard Updated in Patient Room with Yes name and ext. # of Senior Branch Manager Review Status In Process Next Review Type Continued Stay Review
[2022-06-20] MEDS: FUROSEMIDE 40 MG/4 ML VIAL 20 MG IV (12:50)
[2022-06-20 15:29] VITALS: O2SAT 91
[2022-06-20 17:46] VITALS: BP 114/66; PULSE 96; RESP 18; TEMP 36.4; O2SAT 91
[2022-06-21] VITALS (9 sets, daily range): BP systolic 116–147; BP diastolic 69–80; PULSE 83–100; RESP 3–22; TEMP 36.2–37.3; O2SAT 92–97
[2022-06-21] MEDS: SODIUM CHLORIDE 0.9% FLUSH 10 ML IV ×3 (02:15→19:52)
[2022-06-21 08:24] LABS: Add Manual Diff / Slide Review NO; Basophils Absolute Auto 0 /uL (0-100); Basophils Percent Auto 0.3 % (0-2); Eosinophils Absolute Auto 0 /uL (0-450); Eosinophils Percent Auto 0.1 % (2-4); Hematocrit 35.1 % (41-53); Lymphocytes Absolute Auto 1400 /uL (1100-4500); Mean Corpuscular HGB Conc 34.2 % (30-36); Mean Corpuscular Hemoglobin 34.7 PG (26-34); Mean Corpuscular Volume 101.5 fL (80-100); Monocytes Absolute Auto 1100 /uL (0-900); Monocytes Percent Auto 9.2 % (3-14); Neutrophils Absolute Auto 9900 /uL (1500-7000); Neutrophils Percent Auto 79.4 % (50-75); Platelet Count 267 X10^3/uL (150-400); Red Blood Cell Count 3.45 X10^6/uL (4.5-5.9); Red Cell Distribution Width 13.6 % (11.6-14.8); White Blood Cell Count 12.5 X10^3/uL (4.5-11.0)
[2022-06-21] MEDS: BUDESONIDE 0.5 MG/2 ML NEB INH ×2 (08:24→19:23)
[2022-06-21] MEDS: ALBUTEROL/IPRATROPIUM 3 ML AMPUL INH ×4 (08:24→19:23)
[2022-06-21 08:33] LABS: Alanine Aminotransferase 17 IU/L (<50); Albumin 3.2 g/dL (3.5-5.0); Alkaline Phosphatase 79 U/L (38-126); Aspartate Aminotransferase 23 IU/L (17-59); BUN Creatinine Ratio 28.8 (6-22); Bilirubin Total 0.7 mg/dL (0.2-1.3); Blood Urea Nitrogen 15 mg/dL (9-20); Calcium 8.6 mg/dL (8.4-10.2); Carbon Dioxide 27 mmol/L (22-32); Chloride 100 mmol/L (98-107); Estimated Glomerular Filt Rate > 60 mL/min (>60); Globulin 3.3 g/dL (1.7-4.1); Glucose 98 mg/dL (80-110); HEMOLYSIS < 15 (0-50); Magnesium 1.8 mg/dL (1.6-2.3); Potassium 3.9 mmol/L (3.4-5.1); Sodium 135 mmol/L (137-145); Total Protein 6.5 g/dL (6.3-8.2)
[2022-06-21] MEDS: cefTRIAXone 1,000 MG in SODIUM CHLORIDE 0.9% 100 ML 200 MG IV (09:45)
[2022-06-21] MEDS: ATORVASTATIN 20 MG TABLET PO (09:45)
[2022-06-21] MEDS: predniSONE 20 MG TABLET 40 MG PO (09:45)
[2022-06-21] MEDS: FUROSEMIDE 20 MG/2 ML VIAL IV (09:45)
[2022-06-21] MEDS: ASPIRIN 81 MG CHEW TAB PO (09:45)
[2022-06-21] MEDS: ENOXAPARIN 40 MG/0.4 ML SYRINGE SUBCUT (09:45)
[2022-06-21] MEDS: AZITHROMYCIN 250 MG TABLET 500 MG PO (09:46)
--- NOTE | 2022-06-21 14:03 | P.PN_ITS ---
Subjective Subjective Date Patient Seen: 06/21/22 Time Patient Seen: 09:00 Interval history: Patient states he feels better today. Was on 3L when entering room and drifted to 91% when O2 stopped for several minutes so put back on 1L. at bedside and her questions were answered. Exam Vital Signs (past 8 hours): - 06/21/22 06:32 06/21/22 08:24 06/21/22 12:21 Temperature 97.2 F L Pulse Rate 83 92 H 93 H Respiratory Rate 21 3 L 16 Blood Pressure 145/80 H Pulse Oximetry 94 92 94 Oxygen Delivery Method Nasal Cannula Nasal Cannula Oxygen Flow Rate 0 2 06/21/22 12:57 06/21/22 08:11 Temperature 97.7 F Pulse Rate 92 H Respiratory Rate 20 Blood Pressure 127/69 Pulse Oximetry 93 Oxygen Delivery Method Nasal Cannula Oxygen Flow Rate 2 Oxygen Delivery Method Nasal Cannula Oxygen Flow Rate 2 Narrative Exam Narrative: Gen: Alert, oriented, well-developed 77 y.o. male, appears fatigued HEENT: normocephalic, atraumatic, conjunctiva clear, sclera non-icteric, oral mucosa pink and moist Neck: supple, full ROM, no JVD, trachea is midline Resp: Bibasilar crackles present, faint wheezes CV: RRR, no murmur or rubs Abd: soft, non-tender, normoactive BTs Skin: no lesions or rashes, dry and intact Neuro: Alert and oriented X 4 w/no focal deficits. Speech clear and coherent. Extremities: moves all 4 extremities, is ambulatory, negative Eli?s sign Psyche: normal mood and affect. Objective Labs Result Diagrams: 06/21/22 08:06 06/21/22 08:06 Labs: Laboratory Results - last 24 hr 06/21/22 06/21/22 08:06 08:06 WBC 12.5 H D RBC 3.45 L Hgb 12.0 L Hct 35.1 L MCV 101.5 H MCH 34.7 H MCHC 34.2 RDW 13.6 Plt Count 267 Neut % (Auto) 79.4 H Lymph % (Auto) 11.0 L [place] % (Auto) 9.2 Eos % (Auto) 0.1 L Baso % (Auto) 0.3 Neut # (Auto) 9900 H Lymph # (Auto) 1400 [place] # (Auto) 1100 H Eos # (Auto) 0 Baso # (Auto) 0 Sodium 135 L Potassium 3.9 Chloride 100 Carbon Dioxide 27 BUN 15 Creatinine 0.52 L Estimated GFR > 60 BUN/Creatinine Ratio 28.8 H Glucose 98 Calcium 8.6 Magnesium 1.8 Total Bilirubin 0.7 AST 23 ALT 17 Alkaline Phosphatase 79 Total Protein 6.5 Albumin 3.2 L Globulin 3.3 Albumin/Globulin Ratio 1.0 PFSH Medical History Atherosclerosis Bilateral inguinal hernia COPD (chronic obstructive pulmonary disease) Hepatic steatosis Surgical History H/O vasectomy Family History Mother Heart disease Father Status cardiac pacemaker Social History marital status: household members: spouse Smoking Status: Former smoker Tobacco: How many years used: 55 alcohol intake: current substance use type: does not use Assessment & Plan Assessment & Plan narrative: Jann Noriega is admitted for a COPD exacerbation with hypoxic respiratory failure. COPD exacerbation with hypoxic respiratory failure, acute, present on admission * RT consult/tx for supplemental O2, w/as needed albuterol and DuoNeb * Pulmicort nebulizers b.i.d. * He normally sees Dr. Navarro, administrative services director at [facility] * prednisone x5 days * rales on exam, start lasix 20 IV daily * titrate O2 to >88% * now on 1L O2 Recent right sided rib fractures x5 * Patient reports good healing and no pain currently with deep breaths * continue incentive spirometry Dyslipidemia, chronic * He normally takes rosuvastatin 10 mg and may continue Osteoporosis, chronic * He normally takes weekly alendronate and took his weekly dose this past Saturday. Acute on chronic hyponatremia, improving * Na 131, likely due to SIADH * improved to 135 * Monitor and if worsening will fluid restrict VTE Prophylaxis: Enoxaparin 40 mg subQ once daily X Bilateral SCDs Dispo: Home likely in 1 day possibly on home O2. Code status: Full code as discussed with the patient who identifies his Eryn as his surrogate and POA. COVID-19 COVID-19 status: Negative Result date/Date tested (Pos, Neg/Pending): 06/19/22 Time Spent With Patient Critical Care time: I spent a total of [] minutes of critical care time on this patient's care today; this time is exclusive of procedural time. Quality VTE Deep Vein Thrombosis/Pulmonary Embolism Present on Admission: No
[2022-06-22 00:16] VITALS: O2SAT 92
[2022-06-22 01:34] VITALS: O2SAT 95
[2022-06-22 05:30] VITALS: BP 161/71; PULSE 85; RESP 22; TEMP 36.4; O2SAT 93
[2022-06-22 06:48] LABS: Add Manual Diff / Slide Review NO; Basophils Absolute Auto 0 /uL (0-100); Basophils Percent Auto 0.2 % (0-2); Eosinophils Absolute Auto 100 /uL (0-450); Eosinophils Percent Auto 0.5 % (2-4); Lymphocytes Absolute Auto 1400 /uL (1100-4500); Lymphocytes Percent Auto 13.4 % (25-40); Mean Corpuscular HGB Conc 34.4 % (30-36); Mean Corpuscular Hemoglobin 34.8 PG (26-34); Mean Corpuscular Volume 101.2 fL (80-100); Monocytes Absolute Auto 1100 /uL (0-900); Monocytes Percent Auto 10.5 % (3-14); Neutrophils Absolute Auto 8100 /uL (1500-7000); Neutrophils Percent Auto 75.4 % (50-75); Platelet Count 272 X10^3/uL (150-400); Red Blood Cell Count 3.46 X10^6/uL (4.5-5.9); Red Cell Distribution Width 13.3 % (11.6-14.8); White Blood Cell Count 10.7 X10^3/uL (4.5-11.0)
[2022-06-22 06:58] LABS: Alanine Aminotransferase 18 IU/L (<50); Albumin 3.3 g/dL (3.5-5.0); Alkaline Phosphatase 80 U/L (38-126); Aspartate Aminotransferase 22 IU/L (17-59); Bilirubin Total 0.6 mg/dL (0.2-1.3); Blood Urea Nitrogen 14 mg/dL (9-20); Calcium 8.6 mg/dL (8.4-10.2); Carbon Dioxide 30 mmol/L (22-32); Chloride 99 mmol/L (98-107); Estimated Glomerular Filt Rate > 60 mL/min (>60); Globulin 3.2 g/dL (1.7-4.1); Glucose 94 mg/dL (80-110); HEMOLYSIS < 15 (0-50); Magnesium 1.8 mg/dL (1.6-2.3); Potassium 4.3 mmol/L (3.4-5.1); Sodium 135 mmol/L (137-145); Total Protein 6.5 g/dL (6.3-8.2)
[2022-06-22 08:10] VITALS: PULSE 94; RESP 20; O2SAT 89
[2022-06-22] MEDS: BUDESONIDE 0.5 MG/2 ML NEB INH (08:10)
[2022-06-22] MEDS: ALBUTEROL/IPRATROPIUM 3 ML AMPUL INH ×2 (08:10→12:45)
[2022-06-22 08:18] VITALS: PULSE 96; RESP 20
--- NOTE | 2022-06-22 09:54 | PT.IIE ---
Current Diagnoses Chronic obstructive pulmonary disease with (acute) exacerbation (06/19/22) Surgical History (Last Reviewed 06/19/22 @ 23:21 by WALESKA Juarez) H/O vasectomy Medical History (Last Reviewed 06/19/22 @ 23:21 by WALESKA Juarez) Atherosclerosis Bilateral inguinal hernia COPD (chronic obstructive pulmonary disease) Hepatic steatosis Physical Therapy Inpatient Evaluation/Re-Eval M1 PT/OT-IP Prior Functional Status Start: 06/21/22 16:24 Freq: NEEDED Status: Active Protocol: Document 06/22/22 09:54 AW (Rec: 06/22/22 12:35 AW [id number]) Medical Review Prior Functional Status Medical History Reviewed Yes Communication WNL. Pt is an effective verbal communicator. Mobility and Gait Independent without AD. Pt reports one fall (broke 5 ribs ) in the past year. He is typically able to walk more than a mile on all sorts of terrain around [facility]. Activities of Daily Living and IADL's Independent. Prior Functional Level (Other details) Pt has done pulmonary rehab before and found it very helpful. Social History Household Members spouse Living Arrangements House Number of Floors (Floors) 3 or More Floors Number of Stairs To Enter/Railing? 4 platform steps to enter. From entrance, 3 steps down to main level with unilateral rail. Pt descends 14 steps without rails but with close fuller on both sides to lower level/bedroom. 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 M2 PT-IP Current Condition Start: 06/21/22 16:24 Freq: NEEDED Status: Active Protocol: Document 06/22/22 09:54 AW (Rec: 06/22/22 12:35 AW [id number]) Physical Therapy Current Condition Current Condition Evaluation Date 06/22/22 Treatment Diagnosis COPD exacerbation; R rib fx x/ p fall; impaired mobility Onset Date 06/19/22 M3 PT-IP Subjective Start: 06/21/22 16:24 Freq: NEEDED Status: Active Protocol: Document 06/22/22 09:54 AW (Rec: 06/22/22 12:35 AW [id number]) Subjective Physical Therapy Visit Type Type Initial Evaluation Visit Start Time 09:30 Visit Stop Time 09:54 Total Visit Minutes 24 Notes Pt's spouse was present throughout evaluation. PT worked closely with RT for assessment of home O2 needs. Physical Therapy Visit Comments Patient Comments I have to admit I feel a little wobbly since I haven't been up much today. Patient Goals Return home with spouse support Therapy Pain Assessment Pain When Pain Assessed During Mobility Pain Present Pain Present Denied Pain M4 PT-IP Mobility and Gait Start: 06/21/22 16:24 Freq: NEEDED Status: Active Protocol: Document 06/22/22 09:54 AW (Rec: 06/22/22 12:35 AW [id number]) PT-Bed Mobility Assessment Supine to Sit Supine to Sit Independent PT-Transfer Assessment Sit to and From Stand Sit to and from Stand Standby Assistance,Use of Upper Extremities Equipment Transfer Assistive Device Gait Belt Transfers Transfer Destination Bed Transfer Technique ambulated without AD Transfer Ability Level of Assist Standby Assistance Comments Mobility Comments Pt was lying in bed as PT arrived. He was satting 92% on 2L/min via NC. He agreed to room air trial. On RA, he sat up to EOB and stood with no drop in SpO2. He ambulated 90 feet to the therapy stairs. SpO2 was 85% and pt was SOB. He completed one set of stairs . While walking back to the room, SpO2 was 81%. Reapplied O2 at 2L/min and SpO2 recovered to 92% within one minute. Pt stood and walked with 2 L/min O2 as PT managed the tank. SpO2 was stable. Pt completed 15 stairs and SpO2 dropped to 85%. Increased flow rate to 3L/min and pt was able to walk back to the room with less SOB and SpO2 increased to 90% within one minute. Pt was left sitting EOB. Gait Assessment Gait Gait Assistance Required: Standby Assistance Distance (Feet) 180 Assistive Devices Assistive Device None,Gait Belt Gait Deviations General Gait Pattern Decreased Feet Clearance,Wide Based Gait Factors Limiting Gait Function Factors Limiting Gait Function Poor Balance,Respiratory Distress Comments Gait Comments No overt LOB. Gait deviations were minimal. SOB was primary limiting factor but improved on 2-3 L/min O2. See mobility comments for details. Stair Climbing Assessment Evaluation Level of Assist On Stairs Standby Assistance Devices Stair Climbing Assistive Devices Left Railing Technique/Endurance Stair Climbing Direction Ascend and Descend Stair Climbing Technique Step Over Step Number of Steps Climbed 3 Query Text: Stair Climbing Set # Repetitions (reps) 5 Comments Stair Climbing Comments See mobility comments for details on O2 requirements. PT-Balance Assessment Sitting Balance and Reactions Static Sitting Balance Ability Normal Dynamic Sitting Balance Ability Normal Standing Balance and Reactions Static Standing Balance Ability Good Dynamic Standing Balance Ability Good Device Used none Balance Tests Romberg WNL M5 PT-IP Objective Assessments Start: 06/21/22 16:24 Freq: NEEDED Status: Active Protocol: Document 06/22/22 09:54 AW (Rec: 06/22/22 12:35 AW [id number]) Orientation Orientation/Cognition Level of Alertness Alert Orientation Name,Day of Week,Place, Situation Language Function Ability No Deficits Noted Safety Awareness Understands Safety Issues Gross Range of Motion Lower Extremity ROM Assessment Within Functional Limits Strength Lower Extremity Strength Assessment Within Functional Limits Sensation Assessment Sensation Gross Sensation WNL Other Assessments Other Other Assessments O2 requirements for mobility assessed as above M6 PT-IP Treatment Start: 06/21/22 16:24 Freq: NEEDED Status: Active Protocol: Document 06/22/22 09:54 AW (Rec: 06/22/22 12:35 AW [id number]) Physical Therapy Treatment Education Education Provided Safety M7 PT-IP Assessment and Plan Start: 06/21/22 16:24 Freq: NEEDED Status: Active Protocol: Document 06/22/22 09:54 AW (Rec: 06/22/22 12:35 AW [id number]) PT Summary Assessment and Plan Potential Rehabilitation Potential Good Status of Condition at Evaluation Evolving Summary Impairments Gait,Activity Tolerance Assessment Summary Jann is a 77 yo man admitted with COPD exacerbation. He is independent in all regards at baseline and has never needed supplemental O2 at home. On assessment today, he participated in a room air trial and dropped his SpO2 from 93% to 81% walking 180 feet and going up/down 3 steps . With 2-3 L/min O2, he maintained SpO2 86-92% while walking and climbing stairs. He is appropriate for discharge home with helpful spouse once medically stable. He would benefit from pulmonary rehab. Goals Bed Mobility Goal Independent Transfer Goal Independent Gait Goal Independent Gait Distance 500 Other Goals -up/down 14 steps with light contact B rails IND Frequency of Treatment Frequency Of Treatment Once a Day Treatment Plan Physical Therapy Treatment Plan Bed Mobility Training,Transfer Training,Gait Training, Therapeutic Exercise,Balance Retraining,Discharge Planning, Hot or Cold Pack Precautions Other Precautions SpO2 Recommendations To Nursing Amount of Assist Needed Standby Assistance Discharge Recommendations PT Discharge Recommendations Home with Assistance Other Discharge Recommendations Pulmonary rehab Transportation Needs at Discharge Private Vehicle
[2022-06-22] MEDS: cefTRIAXone 1,000 MG in SODIUM CHLORIDE 0.9% 100 ML 200 MG IV (10:09)
[2022-06-22] MEDS: predniSONE 20 MG TABLET 40 MG PO (10:10)
[2022-06-22] MEDS: AZITHROMYCIN 250 MG TABLET 500 MG PO (10:10)
[2022-06-22] MEDS: ASPIRIN 81 MG CHEW TAB PO (10:10)
[2022-06-22] MEDS: FUROSEMIDE 40 MG/4 ML VIAL IV (10:10)
[2022-06-22] MEDS: ENOXAPARIN 40 MG/0.4 ML SYRINGE SUBCUT (10:11)
[2022-06-22] MEDS: ATORVASTATIN 20 MG TABLET PO (10:11)
[2022-06-22] MEDS: INFLUENZA HD VACCINE 0.7 ML SYRINGE IM (10:11)
[2022-06-22] MEDS: SODIUM CHLORIDE 0.9% FLUSH 10 ML IV (10:11)
--- NOTE | 2022-06-22 12:42 | P.DS_ITS ---
History of Present Illness History of Present Illness Date Patient Seen: 06/22/22 Time Patient Seen: 12:18 Chief complaint: COPD/O2@83 Narrative: Jann Noriega is a 77-year-old male with a history of tobacco use with a pack history of 50 years, COPD, bladder cancer in remission and under annual surveillance, hyperlipidemia and osteoporosis diagnosed last year presents with a 4-5 week history of fatigue, intermittent bouts of shortness of breath that happened shortly after a fall resulting in 5? left-sided posterior rib fractures.? He was seen by his PCP who put him on more antibiotics and at that time ordered a CT scan.? He became very short of breath was seen again and told that his ribs that healed.? He continues to have a painful spot in his back.? He states he is tired, cold and shaky all the time.? He presented because he became quite short of breath to the point where he was not able to use his inhalers effectively.? He denies fever, anterior chest pain, nausea or vomiting, dysurea, diarrhea or constipation. He does endorse having continued back pain where his rib fractures occurred. Chest x-ray reported ??Increased right basilar interstitial prominence suggestive of developing pneumonia versus atelectasis/dependent change.CTA of the chest was negative for a PE, continued to note multiple subacute right rib fractures, a right small pleural effusion and a new left lower lobe pulmonary nodule with adjacent ground-glass opacity and adjacent micronodularity likely infectious/inflammatory. They indicated that a neoplasm was not ruled out and he should have follow-up imaging.? He is afebrile, blood pressure 156/77 heart rate 104 respiratory rate 24 oxygen saturation 95% on 4 L he weighs 67.5 kg with a BMI of 24.? He is mildly anemic with a hemoglobin and hematocrit of 13.2 and 39.9 respectively sodium was 133, rest of his chemistries were unremarkable procalcitonin was negative and COVID-19 PCR is negative. Discharge Providers Provider Date of admission: 06/19/22 20:06 Discharge Date: 06/22/22 Primary care physician: Claudia Hansen PA-C Consults: 06/19/22 20:12 Consult to Cardio/Pulmonary Rehabilitation Routine Comment: Physician Instructions: Evaluate and treat 06/20/22 17:40 Consult to Physical Therapy Evaluate & Treat Comment: Physician Instructions: Evaluate and Treat 06/20/22 19:30 Consult to Physical Therapy Evaluate & Treat Comment: Physician Instructions: Evaluate and Treat Discharge provider: oBbby Hussein DO Summary Hospital Course Discharge Diagnosis: COPD exacerbation with hypoxic respiratory failure, acute, present on admission * RT consult/tx for supplemental O2, w/as needed albuterol and DuoNeb * Pulmicort nebulizers b.i.d. * He normally sees Dr. Navarro, crm marketing analyst at [facility]. Recommended he get in for new appt. * prednisone x5 days * rales on exam, gave IV lasix with improvement in bibasilar crackles * titrate O2 to >88% * now on 1-2L O2, home O2 setup * received 3 days of IV abx and will finish 2 days on po abx Recent right sided rib fractures x5 * Patient reports good healing and no pain currently with deep breaths * continue incentive spirometry Dyslipidemia, chronic * He normally takes rosuvastatin 10 mg and will continue Osteoporosis, chronic * He normally takes weekly alendronate and took his weekly dose this past Saturday. Acute on chronic hyponatremia, improving * Na 131, likely due to SIADH * improved to 135 Hospital Course: Patient admitted for COPD exacerbation from presumed PNA. Initially requiring up to 4.5L but once adjusted to titrate O2 to >87% his O2 requirements dropped to 2-3L. Given steroids, lasix, IV abx and nebs and breathing/cough improved. Sputum sample was unfortunately never collected. Home O2 eval rec 1-2L at home so he was discharged with home O2. Recommended he setup an appt with his crm marketing analyst for ongoing management. Will finish 2 more days of po prednisone and po augmentin at home. Time Spent with Patient Time spent: Greater than 30 minutes Exam Vital Signs (past 8 hours): - 06/21/22 06:32 Temperature 97.2 F L Pulse Rate 83 Respiratory Rate 21 Blood Pressure 145/80 H Pulse Oximetry 94 Oxygen Flow Rate 0 Oxygen Delivery Method Nasal Cannula Oxygen Flow Rate 0 Narrative Exam Narrative: Gen: Alert, oriented, well-developed 77 y.o. male, appears fatigued HEENT: normocephalic, atraumatic, conjunctiva clear, sclera non-icteric, oral mucosa pink and moist Neck: supple, full ROM, no JVD, trachea is midline Resp: Bibasilar crackles present, faint wheezes CV: RRR, no murmur or rubs Abd: soft, non-tender, normoactive BTs Skin: no lesions or rashes, dry and intact Neuro: Alert and oriented X 4 w/no focal deficits. Speech clear and coherent. Extremities: moves all 4 extremities, is ambulatory, negative Eli?s sign Psyche: normal mood and affect. Objective Labs Result Diagrams: 06/22/22 06:31 06/22/22 06:31 [facility] Medical History Atherosclerosis Bilateral inguinal hernia COPD (chronic obstructive pulmonary disease) Hepatic steatosis Surgical History H/O vasectomy Family History Mother Heart disease Father Status cardiac pacemaker Social History marital status: household members: spouse Smoking Status: Former smoker Tobacco: How many years used: 55 alcohol intake: current substance use type: does not use Discharge Plan Discharge Plan Patient Disposition: Home Provider Discharge Comment: You were admitted for worsening breathing which was likely due to a pneumonia exacerbating your COPD. You improved with steroids, IV antibiotics and some lasix to get extra water off your lungs. You will still require 1-2L of O2 at home until your lungs heal, which you can adjust as needed to keep your sats >87%. Please get in to see your crm marketing analyst mandeep to check on everything and adjust your inhalers as needed. Discharge orders & Medications Prescriptions: New prednisone 20 mg Tablet 40 mg PO DAILY 2 Days Qty: 4 0RF Rx Instructions: start the morning of 06/23 amoxicillin-pot clavulanate 875-125 mg tablet 1 tab PO BID 2 Days Qty: 4 0RF Rx Instructions: start on morning of 06/23 Continued alendronate 70 mg tablet 70 mg PO WEEKLY rosuvastatin 10 mg tablet 10 mg PO DAILY levalbuterol tartrate 45 mcg/actuation HFA aerosol inhaler 45 mcg INHALATION DAILY fluticasone furoate-vilanterol [Breo Ellipta] 200-25 mcg/dose blister with device 1 ea INHALATION BID Spiriva with HandiHaler 18 mcg Capsule, W/Inhalation Device 1 cap INHALATION DAILY Follow up/Referrals: Claudia Hansen PA-C [Primary Care Provider] - 2 Weeks Visit Report/Discharge Packet Instructions: Home Oxygen Therapy, DI for Chronic Obstructive Pulmonary Disease, DI for Pneumonia -- Adult, DI for Rib Fracture, DI for Oxygen Therapy -- Adult, How to Measure Oxygen Saturation via Pulse Oximetry, How to Perform Oxygen Therapy via Cannula, DI for Respiratory Failure, Traveling When You Need Oxygen Therapy Discharge Data Primary Care Provider: Claudia Hansen Quality VTE Deep Vein Thrombosis/Pulmonary Embolism Present on Admission: No
[2022-06-22 12:45] VITALS: PULSE 102; RESP 18; O2SAT 93
--- NOTE | 2022-06-22 17:03 | PC.NURSE ---
Discharge: Pt feels ready to d/c to home. Pt and the spouse were hesitant to go home. They spoke with MD for long time. RT set up home oxygen and teaching given. Company will meet pt when they get home have not called yet. RT states they will facilitate. Worked w/PT and they have completed any teaching with hime. Reviewed d/c packet, rx was esent, spouse already has follow up appt for pt. Questions answered. Pt d/c home via auto spouse. Still nervous but feels okay about d/c.
== END 2022-06-22 14:00 | disposition home or self-care (01) | DRG 190 ==
LOC: ED 19:25 → AC 06-20 08:21
PROVIDERS: Admitting Provider Nurse Practitioner Family; Emergency Provider Emergency Medicine; PCP Physician Assistant Medical; Visit Provider Nurse Practitioner Family
DX: J44.1 Chronic obstructive pulmonary disease with (acute) exacerbation (principal); J18.9 Pneumonia, unspecified organism; J96.91 Respiratory failure, unspecified with hypoxia; E22.2 Syndrome of inappropriate secretion of antidiuretic hormone; E78.5 Hyperlipidemia, unspecified; M81.0 Age-related osteoporosis without current pathological fracture; S22.41XD Multiple fractures of ribs, right side, subsequent encounter for fracture with routine healing; X58.XXXD Exposure to other specified factors, subsequent encounter; Z20.822 Contact with and (suspected) exposure to COVID-19; Z87.891 Personal history of nicotine dependence; Z23 Encounter for immunization
CPT/HCPCS: 36415; 71045; 71275; 80053; 83605; 83690; 83735; 84145; 84484; 85025; 85610; 85730; 87040; 87070; 87205; 87635; 90471; 90662; 94618; 94640; 94762; 96365; 96366; 96375; 97162; 99284; C9803; J0696; J1650; J1940; J1956; J2930; J7613; Q9967

== ENCOUNTER 2023-02-13 12:25 | Day surgery (SDC) | payer OTHER, SELFPAY ==
--- NOTE | 2023-02-13 | PATH_ITS ---
[facility] Accession Number: [id number] No. of containers..01 Tissue . 01 Material submitted: . rectum - PROXIMAL RECTUM . 01 Diagnosis: Proximal Rectum, Biopsy: Hyperplastic polyp. MRV 02/20/2023 1242 Local . 01 Electronically signed: . Alexandria Pedersen MD, Pathologist NPI- [id number] . 01 Gross description: . The specimen is received in formalin labeled with the patient's name, , and proximal rectum, and consists of multiple vanegas soft tissue fragments aggregating to 0.5 x 0.3 x 0.1 cm. The specimen is filtered and submitted entirely in cassette A1. ([id number]) /FRR 02/16/2023 1714 Local . 01 Pathologist provided ICD-10: K62.1 . 01 CPT . 244230 Specimen Comment: A courtesy copy of this report has been sent to [phone] Performed at: 01 [facility] [address] [place] [address], [place], [place] [id number] MD Catracho Peñaloza MD Phone: [phone]
[2023-02-13] MEDS: LACTATED RINGERS 1,000 ML 84 ML IV (12:37)
[2023-02-13 12:42] VITALS: BP 118/84; PULSE 97; RESP 17; TEMP 36.3; O2SAT 94; BMI 25.8
--- NOTE | 2023-02-13 13:13 | PM.HP.1 ---
History of Present Illness History of Present Illness Date Patient Seen: 02/13/23 Chief complaint: SDC Narrative: History of colon polyps PFSH Medical History Atherosclerosis Bilateral inguinal hernia COPD (chronic obstructive pulmonary disease) Hepatic steatosis Surgical History H/O vasectomy Family History Mother Heart disease Father Status cardiac pacemaker Social History marital status: household members: spouse Smoking Status: Former smoker Tobacco: How many years used: 55 alcohol intake: current substance use type: does not use Meds Home Medications and Allergies Home Medications Medication Instructions Recorded Confirmed Type tiotropium bromide 18 mcg capsule 1 cap inhalation DAILY 12/09/18 02/13/23 History with inhalation device (Spiriva with HandiHaler) alendronate 70 mg tablet 70 mg PO WEEKLY 06/19/22 02/13/23 History levalbuterol tartrate 45 45 mcg inhalation DAILY 06/19/22 02/13/23 History mcg/actuation aerosol inhaler rosuvastatin 10 mg tablet 10 mg PO DAILY 06/19/22 02/13/23 History vit C 50 mg-E 15 unit-zinc cit 4.5 1 tab PO DAILY 02/13/23 02/13/23 History mg-lutein 2.5 mg-zeaxan chew tablet ([employer]) Allergies Allergy/AdvReac Type Severity Reaction Status Date / Time morphine AdvReac Hallucinati Verified 02/13/23 12:33 ng Exam Vital Signs (past 8 hours): - 02/13/23 12:42 Temperature 97.3 F L Pulse Rate 97 H Respiratory Rate 17 Blood Pressure 118/84 Pulse Oximetry 94 Oxygen Delivery Method Room Air Oxygen Delivery Method Room Air Narrative Exam Narrative: Oropharynx free of lesions Chest clear to auscultation percussion Cardiac exam reveals no S3 or murmur Assessment & Plan Assessment & Plan narrative: History of colon polyps need for follow-up colonoscopy. Risks, benefits, alternatives have been explained.
--- NOTE | 2023-02-13 13:14 | PM.OP.COLON ---
Operative Date/Time/Diagnoses Date of procedure: 02/13/23 Pre-op diagnosis: See indication and findings Procedure & Clinicians Study performed: Colonoscopy Indications: History of polyps Procedure Notes Procedure in detail: After informed consent was obtained the patient was placed in left lateral decubitus position. The video colonoscope was introduced the rectum and slowly advanced cecum. Preparation was good. On slow withdrawal mucosa was carefully examined. The scope was removed. The patient tolerated procedure well. Blood loss none Complications none Sedation mac Findings 1. 4 mm polyp in the proximal rectum snared and removed completely 2. Otherwise negative colonoscopy to cecum This should be Mr. Noriega's last colonoscopy. We will be in touch regarding the pathology.
[2023-02-13 13:50] VITALS: BP 113/71; PULSE 97; RESP 12; O2SAT 96
[2023-02-13 13:52] VITALS: BP 104/69; PULSE 96; RESP 16; TEMP 36.3; O2SAT 96
[2023-02-13 13:55] VITALS: BP 127/72; PULSE 93; RESP 12; O2SAT 96
== END 2023-02-13 14:21 | disposition home or self-care (01) ==
PROVIDERS: Admitting Provider Internal Medicine Gastroenterology; PCP Physician Assistant Medical; Referring Provider Internal Medicine Gastroenterology; Visit Provider Internal Medicine Gastroenterology
PROC: 0DJD8ZZ Inspection of Lower Intestinal Tract, Via Natural or Artificial Opening Endoscopic (ICD-10-PCS; CPT 45378; principal; 2023-02-13 13:30)
DX: J44.9 Chronic obstructive pulmonary disease, unspecified (principal); K63.5 Polyp of colon; Z86.010 Personal history of colon polyps; Z87.891 Personal history of nicotine dependence
CPT/HCPCS: 45385; J2704

== ENCOUNTER → 2023-07-06 10:50 | Outpatient (CLI) | payer OTHER, SELFPAY ==
[2023-07-06 11:28] LABS: Estimated Glomerular Filt Rate > 60 mL/min (>60)
== END ==
PROVIDERS: PCP Physician Assistant Medical; Referring Provider Radiology Diagnostic Radiology; Visit Provider Radiology Diagnostic Radiology
DX: C67.9 Malignant neoplasm of bladder, unspecified (principal)
CPT/HCPCS: 36415; 82565

== ENCOUNTER → 2023-07-07 09:43 | Outpatient (CLI) | payer OTHER, SELFPAY ==
--- NOTE | 2023-07-07 09:57 | DI.CT.S_ITS ---
PROCEDURE: CT IVP A/P W/WO INDICATIONS: BLADDER CANCER TECHNIQUE: Optional 5 mm thick noncontrast images acquired from the diaphragm to the symphysis pubis. After the administration of intravenous contrast, 5 mm thick images acquired from the diaphragm to the symphysis pubis after a 10-minute delay. 2 mm thick coronal and sagittal reformats were then performed of the kidneys and ureters. For radiation dose reduction, the following was used: automated exposure control, adjustment of mA and/or kV according to patient size. COMPARISON: CT, CT ABDOMEN PELVIS WO/W CON, 12/16/2019, 11:25. [facility], CT, CT ABDOMEN PELVIS WO/W CON, 11/02/2021, 14:04. [facility], CT, CT CHEST WO CON, 05/28/2022, 14:05. [facility], CT, CT ANGIO CHEST PE PROTOCOL, 06/19/2022, 17:04. FINDINGS: Image quality: Excellent. Lung bases: Lung bases are clear. Heart size is normal. Severe coronary artery calcification. There is a small hiatal hernia. Urinary system: Both kidneys are normal in size, without hydronephrosis or nephrolithiasis on pre-contrast images. No perinephric fat stranding. There is normal bilateral renal enhancement. Renal calyces appear normal in morphology when filled with contrast. Opacified portions of both ureters demonstrate normal caliber. Mild bladder wall thickening in the anterior aspect of the urinary bladder, unchanged in appearance. No bladder mass. No calcified bladder stones. Other solid organs: Liver is normal in size and enhancement. Hepatic steatosis. Gallbladder is normal. Biliary system is non dilated. Pancreas enhances normally. Spleen is normal in size and enhancement. There is a 1.7 cm soft tissue nodule inferior to spleen, unchanged, compatible with a splenule. No adrenal nodules. Peritoneum and bowel: Bowel loops demonstrate normal wall thickness and caliber. There is a large amount of stool in colon. No free fluid or air. Nodes and vessels: No retroperitoneal or mesenteric adenopathy by size criteria. Aorta and inferior vena cava are normal in size. Severe atherosclerosis. Abdominal wall: No ventral hernias. Pelvis: No pathologic free pelvic fluid. No inguinal hernias or adenopathy. Bones: No suspicious bony lesions. Mild chronic compression fracture of L1. Moderate to severe degenerative changes in lumbar spine. Osteopenia. IMPRESSION: 1. Stable appearance of mild anterior bladder wall thickening. No bladder mass. 2. Enlargement of prostate. 3. No lymphadenopathy in abdomen or pelvis. 4. Please see the body of the report for other nonurgent incidental findings. Dictated by: Alaina Abdul M.D. on 07/07/2023 at 16:19 Approved by: Alaina Abdul M.D. on 07/07/2023 at 16:31
== END ==
PROVIDERS: PCP Physician Assistant Medical; Referring Provider Urology; Visit Provider Urology
DX: C67.9 Malignant neoplasm of bladder, unspecified (principal); N40.0 Benign prostatic hyperplasia without lower urinary tract symptoms; K76.0 Fatty (change of) liver, not elsewhere classified; K44.9 Diaphragmatic hernia without obstruction or gangrene; I25.10 Atherosclerotic heart disease of native coronary artery without angina pectoris; I70.0 Atherosclerosis of aorta; M47.816 Spondylosis without myelopathy or radiculopathy, lumbar region; M85.80 Other specified disorders of bone density and structure, unspecified site; M48.56XS Collapsed vertebra, not elsewhere classified, lumbar region, sequela of fracture
CPT/HCPCS: 74178; Q9967

== ENCOUNTER 2024-07-22 13:18 | Emergency (ER) | payer OTHER, SELFPAY ==
[2024-07-22] VITALS (12 sets, daily range): BP systolic 131–157; BP diastolic 63–74; PULSE 77–84; RESP 13–20; TEMP 36.5; O2SAT 91–99; BMI 25.8
--- NOTE | 2024-07-22 13:24 | DI.RAD.S_ITS ---
PROCEDURE: XR CHEST 1V INDICATIONS: chest pain TECHNIQUE: One view of the chest was acquired. COMPARISON: [facility], CR, XR CHEST 1V, 06/19/2022, 15:46. FINDINGS: Surgical changes and devices: None. Lungs and pleura: Lungs are clear. No pleural effusions or pneumothorax. Mediastinum: Mediastinal contours appear normal. Heart size is normal. Bones and chest wall: No suspicious bony lesions. Age indeterminate fractures involving right posterior lateral 5th through 8th rib fractures are seen. Overlying soft tissues appear unremarkable. IMPRESSION: 1. No acute cardiopulmonary pathology. 2. Age indeterminate minimally displaced right posterior lateral 5th through 8th rib fractures suggest clinical correlation. Dictated by: Denys Brown M.D. on 07/22/2024 at 13:58 Approved by: Denys Brown M.D. on 07/22/2024 at 14:02
--- NOTE | 2024-07-22 13:29 | EKG_ITS ---
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
--- NOTE | 2024-07-22 13:36 | ED.GENADULT ---
HPI - General Adult General Chief complaint: Syncope Stated complaint: lethargic, pale, hypotensive Time Seen by Provider: 07/22/24 13:20 Source: patient, family and EMS Mode of arrival: EMS History of Present Illness HPI narrative: 79-year-old gentleman with a history of COPD, 50 pack year history of tobacco abuse, prior bladder cancer hyperlipidemia who presents with fatigue. His noted that his color was off and he did not seem quite right when she woke up this morning. After [place] morning, kids and opening gives he has become more and more weak. She was concerned that he was losing consciousness and in the process of dying. 911 was called. No reports of fever, chills, chest pain, palpitations, patient himself looks slightly pale but in no acute distress. Related Data Home Medications Medication Instructions Recorded Confirmed tiotropium bromide 18 mcg capsule 1 cap inhalation DAILY 12/09/18 02/13/23 with inhalation device (Spiriva with HandiHaler) alendronate 70 mg tablet 70 mg PO WEEKLY 06/19/22 02/13/23 levalbuterol tartrate 45 45 mcg inhalation DAILY 06/19/22 02/13/23 mcg/actuation aerosol inhaler rosuvastatin 10 mg tablet 10 mg PO DAILY 06/19/22 02/13/23 vit C 50 mg-E 15 unit-zinc cit 4.5 1 tab PO DAILY 02/13/23 02/13/23 mg-lutein 2.5 mg-zeaxan chew tablet (AlephD) Allergies Allergy/AdvReac Type Severity Reaction Status Date / Time morphine AdvReac Hallucinati Verified 02/13/23 12:33 ng Review of Systems Review of Systems Narrative: Pertinent positive and negative findings as per HPI Patient History Medical History Atherosclerosis Bilateral inguinal hernia COPD (chronic obstructive pulmonary disease) Hepatic steatosis Surgical History H/O vasectomy Family History Mother Heart disease Father Status cardiac pacemaker Social History marital status: household members: spouse Smoking Status: Former smoker Tobacco: How many years used: 55 alcohol intake: current substance use type: does not use Smoking Status: Former smoker alcohol intake frequency: 0-2 drinks per day Alcohol type: wine Exam Initial Vital Signs Initial Vital Signs: Vital Signs Pulse Rate 79 07/22/24 13:20 Blood Pressure 138/71 07/22/24 13:20 Pulse Oximetry 96 07/22/24 13:20 General: Slightly pale, flat affect no acute distress HEENT: Moist mucous membranes, normal sclera with reactive pupils, Respiratory: Lungs are clear to auscultation, no wheezing no rales no rhonchi. Full and symmetrical air movement Cardiac: Regular rate and rhythm no murmurs no bruits Abdomen: Soft, nontender, good bowel tones, no flank pain Skin: Warm and dry, no rashes Neurologic: Grossly neurologically intact with no obvious asymmetries or abnormalities Extremities: No trauma, well perfused, no lower extremity edema Psych: Cooperative, appropriate insight and affect Course Orders Ordered: ED Orders 07/22/24 13:24 XR chest 1V Stat EKG-12 Lead Stat 07/22/24 13:35 Complete Blood Count AUTO DIFF Stat Comprehensive Metabolic Panel Stat Lipase Stat Magnesium Stat NT-proBNP (BNP-Adult 18+) Stat PTT Partial Thromboplastin [place] Stat Prothrombin Time INR Stat Troponin & CK Cardiac Panel Stat 07/22/24 13:43 Respiratory Panel (Film Array) Stat 07/22/24 15:40 Urinalysis and Microscopic Stat Urine Culture Stat Urine Microscopic Stat Vital Signs Vital signs: Vital Signs - 8 hr 07/22/24 13:20 07/22/24 13:20 07/22/24 13:26 Temperature 97.7 F Pulse Rate 79 83 Respiratory Rate 19 Blood Pressure 138/71 138/71 Pulse Oximetry 96 96 Oxygen Delivery Method Room Air 07/22/24 13:30 07/22/24 13:30 07/22/24 14:00 Temperature Pulse Rate 82 84 Respiratory Rate 16 18 Blood Pressure 131/63 Pulse Oximetry 96 93 Oxygen Delivery Method 07/22/24 14:30 07/22/24 15:00 07/22/24 15:04 Temperature Pulse Rate 82 80 Respiratory Rate 13 14 Blood Pressure 135/71 Pulse Oximetry 93 95 Oxygen Delivery Method 07/22/24 15:04 07/22/24 15:29 07/22/24 15:30 Temperature Pulse Rate 84 77 Respiratory Rate 20 15 Blood Pressure 132/70 Pulse Oximetry 92 91 Oxygen Delivery Method 07/22/24 15:30 07/22/24 16:00 07/22/24 16:00 Temperature Pulse Rate 78 79 Respiratory Rate 16 14 Blood Pressure 150/72 H Pulse Oximetry 94 99 Oxygen Delivery Method Medical Decision Making Lab Data 07/22/24 13:35 07/22/24 13:35 Labs: Lab Results 07/22/24 07/22/24 07/22/24 Range/Units 13:35 13:43 15:40 WBC 7.7 (4.5-11.0) X10^3/uL RBC 3.48 L (4.5-5.9) X10^6/uL Hgb 12.5 L (13.5-17.5) g/dL Hct 36.6 L (41-53) % MCV 105.3 H (80-100) fL MCH 35.8 H (26-34) PG MCHC 34.0 (30-36) % RDW 13.8 (11.6-14.8) % Plt Count 253 (150-400) X10^3/uL Neut % (Auto) 68.9 (50-75) % Lymph % (Auto) 14.1 L (25-40) % [place] % (Auto) 13.2 (3-14) % Eos % (Auto) 3.2 (2-4) % Baso % (Auto) 0.6 (0-2) % Neut # (Auto) 5300 (5721-0082) /uL Lymph # (Auto) 1100 (7477-6470) /uL [place] # (Auto) 1000 H (0-900) /uL Eos # (Auto) 200 (0-450) /uL Baso # (Auto) 0 (0-100) /uL PT 11.6 (9.4-12.5) SECONDS INR 1.0 (0.9-1.3) APTT 25 L (25.1-36.5) SECONDS Sodium 134 L (137-145) mmol/L Potassium 4.4 (3.4-5.1) mmol/L Chloride 102 (98-107) mmol/L Carbon Dioxide 24 (22-32) mmol/L BUN 14 (9-20) mg/dL Creatinine 1.32 H (0.66-1.25) mg/dL Estimated GFR 54 L (>60) mL/min BUN/Creatinine Ratio 10.6 (6-22) Glucose 127 H (80-110) mg/dL Calcium 9.2 (8.4-10.2) mg/dL Magnesium 1.7 (1.6-2.3) mg/dL Total Bilirubin 0.7 (0.2-1.3) mg/dL AST 41 (17-59) IU/L ALT 25 (<50) IU/L Alkaline Phosphatase 56 (38-126) U/L Total Creatine Kinase 30 L (55-170) U/L Troponin I < 0.012 (0.01-0.034) ng/mL NT-Pro-B Natriuret Pep 238 (<450) pg/mL Total Protein 6.9 (6.3-8.2) g/dL Albumin 4.0 (3.5-5.0) g/dL Globulin 2.9 (1.7-4.1) g/dL Albumin/Globulin Ratio 1.4 (1.0-2.8) Lipase 118 (23-300) U/L Urine Color Yellow Urine Appearance Clear Urine pH 7.0 (4.5-8.0) Ur Specific [place] 1.010 (1.000-1.035) Urine Protein Trace H (Negative) Urine Glucose (UA) Negative (Negative) g/dL Urine Ketones Trace H (NEGATIVE) Urine Occult Blood Negative (Negative) Urine Nitrate Negative (Negative) Urine Bilirubin Negative (NEGATIVE) Urine Urobilinogen 0.2 (0.2) E.U./dL Ur Leukocyte Esterase Negative (NEGATIVE) Chlamy pneumoniae PCR Not detected (Not Detect) Adenovirus (PCR) Not detected (Not Detect) B. pertussis DNA (PCR) Not detected (Not Detect) B.parapertussis DNA PCR Not detected (Not Detecte) Coronavirus OC43 (PCR) Not detected (Not Detect) Coronavirus HKU1 (PCR) Not detected (Not Detect) Coronavirus 229E (PCR) Not detected (Not Detect) SARS-CoV-2 (PCR) Not detected (Not Detecte) Coronavirus NL63 (PCR) Not detected (Not Detect) Human Metapneumovir PCR Not detected (Not Detect) Influenza Type A (PCR) Not detected (Not Detect) Influenza Type B (PCR) Not detected (Not Detect) M. pneumoniae (PCR) Not detected (Not Detect) Parainfluenza 1 (PCR) Not detected (Not Detect) Parainfluenza 2 (PCR) Not detected (Not Detect) Parainfluenza 3 (PCR) Not detected (Not Detect) Parainfluenza 4 (PCR) Not detected (Not Detect) RSV (PCR) Not detected (Not Detect) Entero/Rhino (PCR) Not detected (Not Detect) Urine Dip Bedside Urine Glucose Negative Bedside Urine Bilirubin - Negative Bedside Urine Ketone +/- 5 Urine Specific [place] 1.010 Bedside Urine Occult Blood - Negative Bedside Urine pH 6.5 Bedside Urine Protein +/- 15 Bedside Urine Urobilinogen - Negative Bedside Urine Nitrite - Negative Bedside Urine Leukocytes +/- 15 Esterase Point of care testing: Urine Dip Bedside Urine Glucose Negative Bedside Urine Bilirubin - Negative Bedside Urine Ketone +/- 5 Urine Specific [place] 1.010 Bedside Urine Occult Blood - Negative Bedside Urine pH 6.5 Bedside Urine Protein +/- 15 Bedside Urine Urobilinogen - Negative Bedside Urine Nitrite - Negative Bedside Urine Leukocytes +/- 15 Esterase MDM Narrative Medical decision making narrative: CC: Weakness, pale Complicating co-morbidities: History of COPD, hyperlipidemia Data collected from: patient Social determinants of health that may influence the patients condition: Medical records reviewed: Discharge summary for COPD exacerbation June 22, 2022 is reviewed Differential considered: Viral etiology, anemia, sepsis, acute coronary syndrome Exam documented above, pertinent findings include: Exam is entirely nonfocal, patient is slightly pale slightly slow overall to respond. Lab Test results independently reviewed as above. Pertinent findings: CBC shows no leukocytosis, chronic stable anemia Chemistries show a slight bump to creatinine up to 1.32. Electrolytes are unremarkable. Troponin undetectable Lipase is appropriate BNP is not elevated Respiratory panel is unremarkable Urinalysis does not suggest infection Independently reviewed EKG: Sinus rhythm at a rate of 81 with no acute ischemic changes appreciated Imaging studies independently reviewed: Chest x-ray is unremarkable. Radiologist mentions posterior rib fractures undetermined significance. Patient has no pain, no history of recent trauma to the area of concern. Discussion: 79-year-old gentleman with general malaise this morning progressing through the day. He took his usual blood pressure medications, medics were called earlier in the afternoon and found to have a systolic blood pressure in the 70s. With a 500 cc bolus his systolic pressure came up to 120. Workup in the emergency department included cardiac etiology as well as infectious etiology. There was no suggestion of heart failure, heart attack, pneumonia, viral syndrome, kidney failure, significant electrolyte abnormality that would explain his symptoms. He has had a total of 1 L of fluid and has been able to drink 12 oz of water without any difficulty. Color is better patient was feeling slightly improved we talked about the importance of maintaining hydration status at home. At this point there was no indication for additional imaging hospitalization. Questions are answered and the patient is safe for discharge Discharge Plan Departure Patient Disposition: Home Clinical Impression: Acute hypotension, Weakness Activity Restrictions/Additional Instructions: Thank you for coming in today I do not have a complete explanation for why you felt so poorly and why the medics phone your blood pressure so low on initial arrival. There was no sign of heart attack, heart failure, infection, viral syndrome, electrolyte abnormalities, kidney function problems or reasons for hospitalization or additional imaging studies today You responded nicely to a L of fluid plus the glass of water that you had in the emergency department. You mentioned that you recently changed blood pressure medications, I would recommend that you have a large glass of water every single day 1st thing in the morning with your blood pressure medications to make sure that there are no blood pressure medication related symptoms If you find that you are getting worse or develop any new symptoms, please feel free to return to the emergency department for further evaluation. Prescriptions: No Action alendronate 70 mg tablet 70 mg PO WEEKLY rosuvastatin 10 mg tablet 10 mg PO DAILY levalbuterol tartrate 45 mcg/actuation HFA aerosol inhaler 45 mcg INHALATION DAILY Spiriva with HandiHaler 18 mcg Capsule, W/Inhalation Device 1 cap INHALATION DAILY [facility] mg-15 unit- 4.5 mg-2.5 mg Tablet,Chewable 1 tab PO DAILY Referrals: Claudia Hansen PA-C [Primary Care Provider] - Stand Alone Forms: Patient Portal/API/Survey
[2024-07-22 13:43] LABS: Add Manual Diff / Slide Review NO; Basophils Absolute Auto 0 /uL (0-100); Basophils Percent Auto 0.6 % (0-2); Eosinophils Absolute Auto 200 /uL (0-450); Eosinophils Percent Auto 3.2 % (2-4); Hematocrit 36.6 % (41-53); Hemoglobin 12.5 g/dL (13.5-17.5); Lymphocytes Absolute Auto 1100 /uL (1100-4500); Lymphocytes Percent Auto 14.1 % (25-40); Mean Corpuscular Hemoglobin 35.8 PG (26-34); Mean Corpuscular Volume 105.3 fL (80-100); Monocytes Absolute Auto 1000 /uL (0-900); Monocytes Percent Auto 13.2 % (3-14); Neutrophils Absolute Auto 5300 /uL (1500-7000); Neutrophils Percent Auto 68.9 % (50-75); Platelet Count 253 X10^3/uL (150-400); Red Blood Cell Count 3.48 X10^6/uL (4.5-5.9); Red Cell Distribution Width 13.8 % (11.6-14.8); White Blood Cell Count 7.7 X10^3/uL (4.5-11.0)
[2024-07-22 13:53] LABS: Prothrombin Time 11.6 SECONDS (9.4-12.5)
[2024-07-22 13:56] LABS: PTT Partial Thromboplastin Tim 25 SECONDS (25.1-36.5)
[2024-07-22 14:09] LABS: Alanine Aminotransferase 25 IU/L (<50); Albumin Globulin Ratio 1.4 (1.0-2.8); Alkaline Phosphatase 56 U/L (38-126); Aspartate Aminotransferase 41 IU/L (17-59); BUN Creatinine Ratio 10.6 (6-22); Bilirubin Total 0.7 mg/dL (0.2-1.3); Blood Urea Nitrogen 14 mg/dL (9-20); Calcium 9.2 mg/dL (8.4-10.2); Carbon Dioxide 24 mmol/L (22-32); Chloride 102 mmol/L (98-107); Creatine Kinase 30 U/L (55-170); Estimated Glomerular Filt Rate 54 mL/min (>60); Globulin 2.9 g/dL (1.7-4.1); Glucose 127 mg/dL (80-110); HEMOLYSIS < 15 (0-50); Lipase 118 U/L (23-300); Magnesium 1.7 mg/dL (1.6-2.3); Potassium 4.4 mmol/L (3.4-5.1); Sodium 134 mmol/L (137-145); Total Protein 6.9 g/dL (6.3-8.2)
[2024-07-22 14:19] LABS: NT-proBNP (BNP-Adult 18+) 238 pg/mL (<450); Troponin I < 0.012 ng/mL (0.01-0.034)
[2024-07-22 16:28] LABS: Adenovirus Not Detected (Not Detect); B. parapertussis Not Detected (Not Detecte); Bordetella pertussis Not Detected (Not Detect); Chlamydophila pneumoniae Not Detected (Not Detect); Coronavirus 229E Not Detected (Not Detect); Coronavirus HKU1 Not Detected (Not Detect); Coronavirus NL 63 Not Detected (Not Detect); Coronavirus OC43 Not Detected (Not Detect); Human Metapneumovirus Not Detected (Not Detect); Human Rhinovirus/Enterovirus Not Detected (Not Detect); Influenza A Not Detected (Not Detect); Influenza B Not Detected (Not Detect); Mycoplasma pneumoniae Not Detected (Not Detect); Parainfluenza Virus 1 Not Detected (Not Detect); Parainfluenza Virus 2 Not Detected (Not Detect); Parainfluenza Virus 3 Not Detected (Not Detect); Parainfluenza Virus 4 Not Detected (Not Detect); Respiratory Syncytial Virus Not Detected (Not Detect); SARS- CoV-2 Not Detected (Not Detecte)
[2024-07-22 16:35] LABS: Appearance Urine UA CLEAR; Bilirubin Urine UA NEGATIVE (NEGATIVE); Color Urine UA YELLOW; Glucose Urine UA NEGATIVE (Negative); Ketones Urine UA TRACE (NEGATIVE); Leukocyte Esterase Urine UA NEGATIVE (NEGATIVE); Nitrite Urine UA NEGATIVE (Negative); Occult Blood Urine UA NEGATIVE (Negative); Protein Urine UA TRACE (Negative); Urobilinogen Urine UA 0.2 E.U./dL (0.2)
[2024-07-22 16:55] LABS: RBC Urine 1-5/HPF (0-5/HPF); Urine Volume 10mL (spun); WBC Urine 0-1/HPF (0-5/HPF)
[2024-07-22 16:56] LABS: Bacteria Urine Occasional (0-1); Culture Indicated Urine Cult Not Indicated; Hyaline Casts Urine 1-5/LPF; Squamous Epithelial Cell Urine 1-5 /HPF (0-5/HPF)
== END 2024-07-22 17:29 | disposition home or self-care (01) ==
PROVIDERS: Emergency Provider Emergency Medicine; PCP Physician Assistant Medical
DX: I95.9 Hypotension, unspecified (principal); R53.1 Weakness
CPT/HCPCS: 71045; 80053; 81001; 81003; 82550; 83690; 83735; 83880; 84484; 85025; 85610; 85730; 87086; 87633; 93005; 99283; 99284

== ENCOUNTER → 2025-01-27 07:28 | Outpatient (CLI) | payer OTHER, SELFPAY ==
--- NOTE | 2025-01-27 08:17 | DI.CT.S_ITS ---
PROCEDURE: CT IVP A/P W/WO INDICATIONS: MALIGNANT NEOPLASM OF URINARY BLADDER TECHNIQUE: Optional 5 mm thick noncontrast images acquired from the diaphragm to the symphysis pubis. After the administration of intravenous contrast, 5 mm thick images acquired from the diaphragm to the symphysis pubis after a 10-minute delay. 2 mm thick coronal and sagittal reformats were then performed of the kidneys and ureters. For radiation dose reduction, the following was used: automated exposure control, adjustment of mA and/or kV according to patient size. COMPARISON: [facility], CT, CT ABDOMEN PELVIS WO/W CON, 12/16/2019, 11:25. [facility], CT, CT IVP A/P W/WO, 07/07/2023, 9:51. FINDINGS: Image quality: Diagnostic. Kidneys and Ureters: Both kidneys are normal in size, without hydronephrosis or nephrolithiasis. Vascular calcifications are present, which are visualized on the delayed sequence to confirm intravascular location. Mild perinephric fat stranding. There is normal bilateral renal enhancement. Renal calyces appear normal in morphology when filled with contrast. Opacified portions of both ureters demonstrate normal caliber Bladder: Bladder wall thickness is normal. No calcified bladder stones. OTHER: Lower chest: Moderate centrilobular emphysema. Moderate hiatal hernia. Liver: No solid mass. Gallbladder: No radiopaque gallstones or wall thickening. Biliary ducts: No biliary dilation. Pancreas: No ductal dilation. Spleen: Dysmorphic appearance of the spleen, probably sequela trauma. Adrenal Glands: No adrenal nodules. Stomach and Bowel: Normal colonic caliber, without significant wall thickening. Peritoneum: No abnormal intraperitoneal fluid. No free air. Ventral Wall: No hernia. Abdominal Nodes: No retroperitoneal or mesenteric adenopathy by size criteria. Vessels: Aorta and inferior vena cava are normal in size. PELVIS: Pelvic Organs: Unremarkable. Pelvic Nodes: No enlarged lymph nodes. Miscellaneous: No inguinal hernias are seen. Bones: No aggressive osseous abnormality. IMPRESSION: No nephrolithiasis or filling defects within the opacified renal collecting system or ureters. No pelvic or retroperitoneal adenopathy. Dictated by: Gavino Benites M.D. on 01/27/2025 at 11:06 Approved by: Gavino Benites M.D. on 01/27/2025 at 11:11
[2025-01-27 08:22] LABS: Estimated Glomerular Filt Rate > 60 mL/min (>60)
== END ==
PROVIDERS: PCP Physician Assistant Medical; Referring Provider Physician Assistant Medical; Visit Provider Physician Assistant Medical
DX: C67.9 Malignant neoplasm of bladder, unspecified (principal)
CPT/HCPCS: 36415; 74178; 82565; Q9967